=== PATIENT | female | born 1935 | race Two or more races ===

== ENCOUNTER 2017-01-10 23:50 | Emergency (ER) | payer MEDICARE ==
[~2017-01-10] VITALS: Ht 162.6 cm; Wt 77.1 kg
[2017-01-11] MEDS ORDERED: ALBUTEROL FS 2.5 MG/0.5 ML VIAL.NEB ONE (00:57)
[2017-01-11] MEDS ORDERED: ALBUTEROL FS 2.5 MG/0.5 ML VIAL.NEB NEB ONE (01:00)
[2017-01-11 02:27] VITALS: BP 112/68
== END 2017-01-11 02:28 | disposition home or self-care (01) ==
LOC: ER 23:54
DX: J06.9 Acute upper respiratory infection, unspecified (principal); E11.9 Type 2 diabetes mellitus without complications
CPT/HCPCS: 71010; 94640; 99283; A4606; Z7610

== ENCOUNTER 2022-08-25 02:35 | Inpatient (IN) | payer MEDICARE, OTHER ==
[2022-08-25] VITALS (16 sets, daily range): BP systolic 91–142; BP diastolic 55–103
[~2022-08-25] VITALS: Ht 160 cm; Wt 76.2 kg
--- NOTE | 2022-08-25 02:45 | NUR ---
TO ER BED 8. [id number]. FROM SNF NOTED HYPOXIC @ 68% ON 3LPM. ON NON REBREATHER @ 98%. PT IS AAOX0. CRACKLES NOTED ON LUNG SOUNDS. CONNECTED TO MONITOR. PHYLLIS AND ELENA NOTED UPON ARRIVAL. RT AND MD AT BEDSIDE.
[2022-08-25 02:47] LABS: ABG BASE EXCESS 9.9 mmol/L; ABG PCO2 86.6 mmHg (35.0-45.0); ABG PH 7.279 (7.350-7.450); ABG PO2 274.9 mmHg (75.0-100.0); COHb 0.1 % (0.5-1.5); MetHb 0.5 % (0.0-1.5); O2Hb 98.9 % (94.0-97.0); SITE, ABG Left Radial; VENT MODE, BG 15 L NRB
[2022-08-25] MEDS ORDERED: PIPERACILLIN /TAZOBACTAM 3.375 G VIAL IV ONE (02:47)
--- NOTE | 2022-08-25 02:48 | NUR ---
URINE SAMPLE COLLECTED
--- NOTE | 2022-08-25 02:48 | NUR ---
IV LINE ESTABLISHED, [id number]
--- NOTE | 2022-08-25 02:48 | NUR ---
BLOOD AND CULTURES COLLECTED
--- NOTE | 2022-08-25 02:49 | NUR ---
COVID SWAB COLLECTED
[2022-08-25] MEDS ORDERED: VANCOMYCIN 1 GM VIAL ONE (02:51)
--- NOTE | 2022-08-25 02:52 | NUR ---
SHIFTED TO BIPAP WITH SETTINGS OF 20/5, RATE 18, FiO2 50%.
[2022-08-25] MEDS ORDERED: PIPERACILLIN /TAZOBACTAM 3.375 G in IV D5W 50 ML IV ONE (03:00)
[2022-08-25] MEDS ORDERED: VANCOMYCIN 1 GM in IV D5W 250 ML IV ONE (03:00)
--- NOTE | 2022-08-25 03:03 | NUR ---
RT placed on bipap per md post abg results. bipap settings: ST 20/5 RR 18 50% bipap plugged in to red outlet. alarms on and audible. pt tolerating at this time. no sob, no resp distress. ambu bag at bedside.
[2022-08-25 03:04] LABS: BASOPHILS % (AUTO) 0.1 % (0.0-2.0); EOSINOPHILS % (AUTO) 0.6 % (0.0-6.0); HEMATOCRIT 35 % (33-45); HEMOGLOBIN 11.2 g/dL (11.5-14.8); LYMPHOCYTES # (AUTO) 0.4 K/uL (0.8-4.8); LYMPHOCYTES % (AUTO) 5.2 % (20.0-44.0); MEAN CORPUSCULAR HGB CONC 32 g/dl (31.0-36.0); MEAN CORPUSCULAR VOLUME 92 fL (82-100); MONOCYTES # (AUTO) 0.4 K/uL (0.1-1.30); MONOCYTES % (AUTO) 4.9 % (2.0-12.0); NEUTROPHILS # (AUTO) 6.5 K/uL (1.8-8.9); NEUTROPHILS % (AUTO) 89.2 % (43.0-81.0); PLATELET COUNT (AUTO) 252 K/uL (150-450); RED BLOOD CELL COUNT(AUTO) 3.78 MIL/uL (4.0-5.2); WHITE BLOOD COUNT (AUTO) 7.3 K/uL (4.3-11.0)
[2022-08-25 03:16] LABS: CALCIUM, SERUM 9.4 mg/dL (8.5-10.1); CHLORIDE 92 mmol/L (98-107); CREATININE 0.5 mg/dL (0.6-1.3); GLUCOSE 132 mg/dL (74-106); SODIUM SERUM 129 mmol/L (136-145); UREA NITROGEN, BLOOD 20 mg/dL (7-18)
[2022-08-25 03:22] LABS: ALANINE AMINOTRANSFERASE 19 U/L (12-78); ALBUMIN 2.8 g/dL (3.4-5.0); ALKALINE PHOSPHATASE 125 U/L (46-116); ASPARTATE AMINOTRANSFERASE 17 U/L (15-37); BILIRUBIN,DIRECT 0.1 mg/dL (0.0-0.2); BILIRUBIN,TOTAL 0.4 mg/dL (0.2-1.0); TOTAL PROTEIN, SERUM 6.7 g/dL (6.4-8.2)
[2022-08-25 03:23] LABS: CARBON DIOXIDE 41 mmol/L (21-32)
--- NOTE | 2022-08-25 03:43 | NUR ---
XRAY AT BEDSIDE
[2022-08-25 04:08] LABS: BILIRUBIN,URINE NEGATIVE (NEGATIVE); COLOR,URINE YELLOW (YELLOW); PH,URINE 6.5 (5.0-8.0); PROTEIN,URINE NEGATIVE (NEGATIVE); UGLUCOSE NEGATIVE (NEGATIVE)
[2022-08-25 04:09] LABS: LEUKOCYTE ESTERASE ,URINE LARGE (NEGATIVE); NITRITE, URINE NEGATIVE (NEGATIVE); RBC,URINE 0-2 /HPF (0-2); UROBILINOGEN,URINE 0.2 EU/dL (0.2)
[2022-08-25 04:10] LABS: BACTERIA,URINE Few /HPF (None Seen); SQUAMOUS EPITHELIAL CELL,UR Few /HPF (None Seen)
[2022-08-25 04:33] LABS: ABG PCO2 79.4 mmHg (35.0-45.0); ABG PO2 125.6 mmHg (75.0-100.0); COHb 0.3 % (0.5-1.5); MetHb 0.4 % (0.0-1.5); O2Hb 97.4 % (94.0-97.0); SITE, ABG Right Radial
--- NOTE | 2022-08-25 04:40 | NUR ---
ABG DONE. NOTIFIED DR ADAMS WITH THE RESULT. FIO2 TITRATED.
[2022-08-25] MEDS ORDERED: hydrALAZINE HCL IV 20 MG VIAL IV PRN (05:30)
[2022-08-25] MEDS ORDERED: MAG HYDROX/AL HYDROX/SIMETH 30 ML UDC PO PRN (05:30)
[2022-08-25] MEDS ORDERED: ONDANSETRON HCL/PF 4 MG/2 ML VIAL IVP PRN (05:30)
[2022-08-25] MEDS ORDERED: MORPHINE SULFATE INJ 2 MG/ML DISP.SYRIN IV PRN (05:30)
[2022-08-25] MEDS ORDERED: MAGNESIUM HYDROXIDE 30 ML UDC PO PRN (05:30)
[2022-08-25] MEDS ORDERED: ACETAMINOPHEN 325 MG TABLET PO PRN (05:30)
--- NOTE | 2022-08-25 05:30 | NUR ---
SECOND IV LINE ESTABLISHED, [id number]
--- NOTE | 2022-08-25 05:34 | NUR ---
ROOM 258
--- NOTE | 2022-08-25 05:46 | NUR ---
REPORT GIVEN TO ED RN FOR MAYE
--- NOTE | 2022-08-25 07:05 | NUR ---
SASH INSTALLER Bedside report taken from [facility] nurse Saunders. pt just arrived from ER. pt obtunded does not open eyes or follow commands moves rue 2/5 and lue and ble 1/5, perrla 2 sluggish. pt on bipap, tolerating well. taras lung sounds diminished. pt has peg tube, npo at this time. pt has hightower intact and draining clear, yellow urine. bue and ble pulses present. pt nsr on monitor with BBB. pt has multiple wounds, photos taken and placed in pt chart. no drips at this time. safety measures in place will continue to monitor.
--- NOTE | 2022-08-25 07:14 | NUR ---
PT TRANSPORTED TO ICU VIA DONG W/ RT AND RN
[2022-08-25] MEDS: IPRATROPIUM NEB FS 0.5 MG/2.5 ML AMPUL.NEB NEB SCH ×3 (08:03→19:40)
[2022-08-25] MEDS: ALBUTEROL FS 2.5 MG/3 ML VIAL.NEB NEB SCH ×3 (08:03→19:40)
[2022-08-25] MEDS ORDERED: POLY17PO4 GT (08:15)
[2022-08-25] MEDS ORDERED: ASCO500C17 GT (08:15)
[2022-08-25] MEDS ORDERED: ACET325T53 PO (08:15)
[2022-08-25] MEDS ORDERED: ACET325T53 GT (08:15)
[2022-08-25] MEDS ORDERED: PANT40TA2 GT (08:15)
[2022-08-25] MEDS ORDERED: MELA3TAB41 GT (08:15)
[2022-08-25] MEDS ORDERED: LEVO112T5 GT (08:15)
[2022-08-25] MEDS ORDERED: LACT-209 GT (08:15)
[2022-08-25] MEDS ORDERED: MULT-447 GT (08:15)
[2022-08-25] MEDS: CEFEPIME 2 GM in IV D5W 100 ML IV SCH ×3 (09:44→23:37)
[2022-08-25] MEDS: HEPARIN SODIUM, PORCINE 5000 UNITS/1 ML VIAL SQ SCH ×2 (09:49→21:17)
--- NOTE | 2022-08-25 13:00 | NUR ---
pt placed off bipsp onto 3lpm n/c
--- NOTE | 2022-08-25 13:00 | NUR ---
CIGAR HEAD STRINGER Pt off bipap and placed on 3 L n/c by Eben RT. pt tolerating well. vitals stable. willl continue to monitor.
--- NOTE | 2022-08-25 13:13 | NUR ---
NURSE SUBSTANCE ABUSE parking enforcement technician at bedside doing study. pt tolerating well. will continue to monitor.
[2022-08-25] MEDS: BUMETANIDE INJ 0.25 MG/ML VIAL IV SCH ×2 (13:24→16:53)
[2022-08-25 15:10] LABS: ABG BASE EXCESS 8.9 mmol/L; ABG OXYGEN SATURATION 93.2 % (92.0-98.5); ABG PCO2 57.7 mmHg (35.0-45.0); ABG PH 7.406 (7.350-7.450); ABG PO2 65.5 mmHg (75.0-100.0); AaDO2 95.2 mmHg; MetHb 0.2 % (0.0-1.5); O2Hb 92.1 % (94.0-97.0); SITE, ABG Right Radial; VENT MODE, BG NASAL CANNULA
--- NOTE | 2022-08-25 19:05 | NUR ---
ORNAMENTAL PLASTER STICKER Bedside report given to [facility] nurse Saunders. pt asleep, easily arousable. pt on 3 L n/c tolerating well. all lines traced. pt clean and dry. no signs of acute distress at this time. safety measures in place.
--- NOTE | 2022-08-25 19:15 | NUR ---
ICU/INSURANCE ADJUSTOR RECEIVED REPORT FROM DAY NURSE. SEE FLOWSHEET FOR ASSESSMENT. FOR IV SEE THE IV SPREAD SHEET, WHICH IS TKO AND ANTIBIOTICS. PT HAS MANY WOUND WHICH ARE ADDRESSED ON THE FLOWSHEET ALONG WITH THE INTERVENTIONS TO EACH. PT WAS TUNED AND REPOSITIONED FOR COMFORT AND CARE. WILL CONTINUE TO MONITOR THIS PT.
--- NOTE | 2022-08-25 20:30 | NUR ---
ICU/CRIMPER ASSEMBLER SATURATION FELL TO 70'S WHILE ON 3 LITERS N/C, CALLED RT TO PLACE PT BACK ON BIPAP, WHICH HE DID DO. PT IS NOW OMN BIPAP-20/5, RATE 18, FIO2-35%. WILL CONTINUE TO MONITOR THIS PT AND HER SATURATION.
--- NOTE | 2022-08-25 21:10 | NUR ---
ICU/CIO LAB CALLED ABOUT MRSA TO NARES THAT WAS COLLECTED BUT NO ORDERS, PLACED THE ORDERS FOR THIS.
--- NOTE | 2022-08-25 21:40 | NUR ---
RT NOTE PT PLACED ON BIPAP AT THIS TIME. LOW SPO2 NOTED ON 3L NASAL CANNULA. MASK SECURED WITH MEPILEX. WILL CONTINUE TO MONITOR. BIPAP PLUGGED TO RED OUTLET.
--- NOTE | 2022-08-25 22:30 | NUR ---
ICU/MOBILE SECURITY SPECIALIST PT IS VERY RESTLESS, PULLING AT LEADS, AND TRYING TO TAKE OFF THE BIPAP, ALSO AT THIS TIME PT MANAGED TO REMOVE PERIPHERAL LINES. OBTAINED AN ORDER FOR RESTRAINTS. PT WAS TUNED AND REPOSITIONED FOR COMFORT AND CARE.
--- NOTE | 2022-08-25 23:50 | NUR ---
ICU/FIRE EQUIPMENT OPERATOR CHARGE NURSE PLACED A NEW IV TO THE LEFT EXTERNAL JUG. #18, IV'S WERE CHANGED OVER.
[2022-08-26] VITALS (21 sets, daily range): BP systolic 88–157; BP diastolic 35–91
[2022-08-26] MEDS: IPRATROPIUM NEB FS 0.5 MG/2.5 ML AMPUL.NEB NEB SCH ×4 (01:46→19:55)
[2022-08-26] MEDS: ALBUTEROL FS 2.5 MG/3 ML VIAL.NEB NEB SCH ×4 (01:46→19:54)
--- NOTE | 2022-08-26 02:48 | NUR ---
ICU/CHRISTMAS TREE CONTRACTOR PT HAS A G/TUBE WAS GETTING JEVITY 1.2 @45ML/HR. PLACED ORDER FOR THIS THEN CANCELLED THE FIGUEROA GILL.
[2022-08-26 05:03] LABS: BASOPHILS % (AUTO) 0.4 % (0.0-2.0); EOSINOPHILS % (AUTO) 0.6 % (0.0-6.0); HEMATOCRIT 33 % (33-45); HEMOGLOBIN 10.7 g/dL (11.5-14.8); LYMPHOCYTES # (AUTO) 0.3 K/uL (0.8-4.8); LYMPHOCYTES % (AUTO) 4.3 % (20.0-44.0); MEAN CORPUSCULAR HGB CONC 32 g/dl (31.0-36.0); MEAN CORPUSCULAR VOLUME 91 fL (82-100); MONOCYTES # (AUTO) 0.5 K/uL (0.1-1.30); MONOCYTES % (AUTO) 7.2 % (2.0-12.0); NEUTROPHILS # (AUTO) 6.5 K/uL (1.8-8.9); NEUTROPHILS % (AUTO) 87.5 % (43.0-81.0); PLATELET COUNT (AUTO) 228 K/uL (150-450); RED BLOOD CELL COUNT(AUTO) 3.61 MIL/uL (4.0-5.2); WHITE BLOOD COUNT (AUTO) 7.4 K/uL (4.3-11.0)
--- NOTE | 2022-08-26 05:10 | NUR ---
ICU/CHARTER COACH DRIVER RT TOOK OFF BIPAP, PLACED PT ON 3 LITERS N/C. WILL MONITOR THIS PT'S SATURATION.
[2022-08-26 05:52] LABS: ALBUMIN 2.9 g/dL (3.4-5.0); BILIRUBIN,TOTAL 0.7 mg/dL (0.2-1.0); CALCIUM, SERUM 9.5 mg/dL (8.5-10.1); CREATININE 0.9 mg/dL (0.6-1.3); MAGNESIUM 1.9 mg/dL (1.8-2.4); PHOSPHORUS 3.3 mg/dL (2.5-4.9); POTASSIUM 4.5 mmol/L (3.5-5.1); TOTAL PROTEIN, SERUM 6.8 g/dL (6.4-8.2)
[2022-08-26] MEDS ORDERED: DEXTROSE 50%-WATER 50 ML DISP.SYRIN IV PRN (06:00)
[2022-08-26] MEDS: BLOOD SUGAR DIAGNOSTIC 1 EACH STRIP IN SCH ×3 (06:12→17:55)
--- NOTE | 2022-08-26 07:15 | NUR ---
SECURITY SME Bedside report taken from [facility] nurse Saunders. pt awake, alert and oriented x2, follow commands moves bue 2/5 and ble 1/5, perrla 2 sluggish. pt on 4L N/C, tolerating well. taras lung sounds diminished. pt has peg tube, npo at this time, awaiting tube feeding to start. pt has hightower intact and draining clear, yellow urine. bue and ble pulses present. pt nsr on monitor with BBB. pt has multiple wounds, see flowsheet. no drips at this time. safety measures in place. vitals stable. no signs of acute distress at this time. will continue to monitor.
[2022-08-26] MEDS: CEFEPIME 2 GM in IV D5W 100 ML IV SCH ×2 (08:06→17:41)
[2022-08-26] MEDS: HEPARIN SODIUM, PORCINE 5000 UNITS/1 ML VIAL SQ SCH ×2 (08:07→21:24)
[2022-08-26 08:19] LABS: ABG BASE EXCESS 12.4 mmol/L; ABG OXYGEN SATURATION 96.7 % (92.0-98.5); ABG PCO2 50.2 mmHg (35.0-45.0); ABG PO2 86.9 mmHg (75.0-100.0); AaDO2 89.8 mmHg; COHb 0.4 % (0.5-1.5); MetHb 0.2 % (0.0-1.5); O2Hb 96.1 % (94.0-97.0); SITE, ABG Right Radial
--- NOTE | 2022-08-26 08:32 | NUR ---
POND SCALER PICC RN at bedside placing midline. pt tolerated well. ok to use. will continue to monitor.
--- NOTE | 2022-08-26 15:00 | NUR ---
HYDRAULIC CONTROLS TECHNICIAN Pt bathed and cleaned. linen change done. skin check done, no new wounds noted. pt tolerated well. vitals stable. will continue to monitor.
--- NOTE | 2022-08-26 18:59 | NUR ---
COMPLAINT SPECIALIST Bedside report given to [facility] nurse Susannah. pt asleep, easily arousable. pt on 4 L n/c tolerating well. all lines traced. all drips verified. pt clean and dry. safety measures in place. vitals stable. no signs of acute distress at this time. transfer to tele room 109 pending after 1930 and endorsed to [facility] nurse.
--- NOTE | 2022-08-26 19:33 | NUR ---
SPEEDER OPERATOR CALLED FOR REPORT NURSE UNAVAILABLE AT THIS TIME.
--- NOTE | 2022-08-26 19:43 | NUR ---
CUPOLA CHARGER INSULATION REPORT GIVEN PT CURRENTLY RECEIVING BREATHING TREATMENT
--- NOTE | 2022-08-26 22:38 | NUR ---
PRINCIPAL QUALITY ENGINEER OPENING NOTE PT TRANSFERRED FROM ICU AND IS AWAKE AND ALERT, BUT NON-VERBAL; CALM, COOPERATIVE. PT ON 3L NC WITH CURRENT O2SAT OF 97%; NO S/S OF RESP DISTRESS, NO SOB OR COUGH, NON-LABORED AND EQUAL BREATHING. PT ATTACHED TO EXTERNAL MONITOR, ST WITH HR OF 102. GTD C/D/I WITH JEVITY RUNNING AT 45 ML/HR; NO RESIDUAL NOTED. PARKER INTACT AND PATENT WITH NO SIGNS OF LEAKING, DRAINING CLEAR AND YELLOW URINE. PT NOTED TO HAVE BILATERAL SOFT WRIST RESTRAINTS; NO SIGNS OF IMPAIRED SKIN OR CIRCULATION; WILL PROVIDE PT WITH RELEASE OF RESTRAINTS AND HYGIENE. BED IN LOWEST POSITION, CALL LIGHT WITHIN REACH, SIDE RAILS UP X3. WILL CONTINUE TO MONITOR THROUGHOUT THE NIGHT.
[2022-08-27] VITALS: BP 100/80
[2022-08-27] MEDS: BLOOD SUGAR DIAGNOSTIC 1 EACH STRIP IN SCH ×4 (00:09→18:24)
[2022-08-27] MEDS: CEFEPIME 2 GM in IV D5W 100 ML IV SCH ×3 (00:11→15:06)
[2022-08-27] MEDS: IPRATROPIUM NEB FS 0.5 MG/2.5 ML AMPUL.NEB NEB SCH ×4 (01:38→20:36)
[2022-08-27] MEDS: ALBUTEROL FS 2.5 MG/3 ML VIAL.NEB NEB SCH ×4 (01:40→20:36)
[2022-08-27 04:00] VITALS: BP 101/60
--- NOTE | 2022-08-27 06:46 | NUR ---
LANG PATH THERAPIST CLOSING NOTE PT REMAINS IN BED ASLEEP BUT EASILY AROUSABLE; PT NOTED TO SAY "OK" WHEN ASKED HOW SHE'S DOING AND WHEN NOTIFYING HER WHEN CHECKING HER BLOOD SUGAR; UNABLE TO STATE HER NAME, , WHERE SHE'S AT; CALM, COOPERATIVE. CONTINUES TO BE ON 3L NC WITH O2SAT RANGING FROM 95%- 97%; NO S/S OF RESP DISTRESS, NO SOB OR COUGH, NON-LABORED AND EQUAL BREATHING. ATTACHED TO EXTERNAL MONITOR, SR-ST WITH HR RANGING FROM 85- 102. GTD C/D/I WITH JEVITY RUNNING AT 45 ML/HR; NO RESIDUAL NOTED. PARKER INTACT AND PATENT WITH NO SIGNS OF LEAKING, DRAINING CLEAR AND YELLOW URINE. BILATERAL SOFT WRIST RESTRAINTS REMAIN IN PLACE WITH NO SIGNS OF IMPAIRED SKIN OR CIRCULATION; PROVIDED PT WITH RELEASE OF RESTRAINTS AND HYGIENE. ALL DUE MEDS ADMINISTERED DURING THE NIGHT. BED IN LOWEST POSITION, CALL LIGHT WITHIN REACH, SIDE RAILS UP X3. WILL ENDORSE TO DAYSHIFT NURSE TO CONTINUE CARE. Addendum: 08/27/22 at 1830 by CHEIKH ARNDT RN G TUBE RUNNING 75 ML/HR OF JEVETY
[2022-08-27 08:00] VITALS: BP 116/77
[2022-08-27] MEDS: ALBUTEROL FS 2.5 MG/0.5 ML VIAL.NEB NEB PRN ×2 (08:40→14:18)
[2022-08-27] MEDS: HEPARIN SODIUM, PORCINE 5000 UNITS/1 ML VIAL SQ SCH ×2 (09:43→23:54)
[2022-08-27] MEDS: INSULIN REGULAR, HUMAN 100 UNIT/ML 3 ML VIAL SQ PRN (11:48)
[2022-08-27 12:00] VITALS: BP 124/69
[2022-08-27 16:15] VITALS: BP 92/77
[2022-08-27 20:00] VITALS: BP 117/76
[2022-08-28] VITALS: BP 107/67
[2022-08-28] MEDS: CEFEPIME 2 GM in IV D5W 100 ML IV SCH ×3 (00:11→15:23)
[2022-08-28] MEDS: BLOOD SUGAR DIAGNOSTIC 1 EACH STRIP IN SCH ×4 (00:11→17:48)
[2022-08-28] MEDS: IPRATROPIUM NEB FS 0.5 MG/2.5 ML AMPUL.NEB NEB SCH ×4 (01:44→20:23)
[2022-08-28] MEDS: ALBUTEROL FS 2.5 MG/3 ML VIAL.NEB NEB SCH ×4 (01:44→20:23)
[2022-08-28 04:41] VITALS: BP 113/83
--- NOTE | 2022-08-28 07:34 | NUR ---
SEGMENTAL WALL INSTALLER OPENING NOTE PATIENT IN BED ALERT. PT ON 3L NC WITH NO S/SX OF RESP DISTRESS, NO SOB OR COUGH, NON-LABORED. NO C/O OF PAIN. PATIENT ON TELE MONITORING WITH SR READING AND HR OF 83. GT INTACT, WITH JEVITY RUNNING AT 45 ML/HR. PARKER INTACT, WITH NO SIGNS OF LEAKING, DRAINING VIA GRAVITY. PT NOTED TO HAVE BILATERAL SOFT WRIST RESTRAINTS X2 TO BE RENEWED 2221. BED IN LOWEST POSITION, CALL LIGHT WITHIN REACH, SIDE RAILS UP X2. WILL CONTINUE TO MONITOR
[2022-08-28 08:00] VITALS: BP 110/64
[2022-08-28] MEDS: HEPARIN SODIUM, PORCINE 5000 UNITS/1 ML VIAL SQ SCH ×2 (08:38→21:21)
--- NOTE | 2022-08-28 10:00 | NUR ---
RN NOTE PATIENT NOTED TO BE CALM, RELEASED BILATERAL RESTRAINTS.
--- NOTE | 2022-08-28 11:00 | NUR ---
RN NOTE PATIENT REMAINED CALM RESTRAINTS D/C
[2022-08-28 12:00] VITALS: BP 118/70
[2022-08-28] MEDS: INSULIN REGULAR, HUMAN 100 UNIT/ML 3 ML VIAL SQ PRN (12:09)
[2022-08-28 16:00] VITALS: BP 91/58
--- NOTE | 2022-08-28 18:25 | NUR ---
HATCH SUPERVISOR CLOSING NOTE PT REMAINS IN BED ASLEEP BUT EASILY AROUSABLE. ON 3L OXYGEN VIA NC WITH Z1CGK=97% NO S/S OF RESP DISTRESS, NO SOB OR COUGH, NON-LABORED AND EQUAL BREATHING. ATTACHED TO EXTERNAL MONITOR, SR-ST WITH HR RANGING FROM 92/109. PADMINI MIDLINE PATENT AND INTACT TKO. LEFT ARM PERIPHERAL LINE PATENT AND INTACT ON SALINE LOCK. GTD C/D/I WITH JEVITY RUNNING AT 70 ML/HR; TOLERATING WELL. NO RESIDUAL NOTED. PARKER INTACT AND PATENT WITH NO SIGNS OF LEAKING, DRAINING 525 CC OF CLEAR AND YELLOW URINE. BED IN LOWEST POSITION, CALL LIGHT WITHIN REACH, SIDE RAILS UP X3. WILL ENDORSE TO RESPIRATORY THERAPIST NURSE.
--- NOTE | 2022-08-28 19:20 | NUR ---
RN OPEN NOTE: ASLEEP EASILY AROUSED . ON 3L OXYGEN VIA NC WITH N4TLV=00% NO S/S OF RESP DISTRESS, NO SOB OR COUGH, NON-LABORED AND EQUAL BREATHING. ATTACHED TO EXTERNAL MONITOR READING OF SINUS RHYTHM WITH PVC'S 91. REPOSITIONED WITH PILLOWS. PADMINI MIDLINE PATENT AND INTACT TKO. LEFT ARM PERIPHERAL LINE PATENT AND INTACT ON SALINE LOCK. GT FEEDING ON WITH JEVITY RUNNING AT 70 ML/HR; TOLERATING WELL. NO RESIDUAL NOTED. PARKER INTACT AND PATENT DRAINING YELLOW URINE. HOB ELEVATED IN SEMI-ROLDAN'S POSITION, BED IS LOCKED, BED EXIT ALARM, BED IN LOWEST POSITION, CALL LIGHT WITHIN REACH, SIDE RAILS UP X3. DECLINES PAIN OR DISCOMFORT.
[2022-08-28 20:00] VITALS: BP 103/47
[2022-08-29] VITALS: BP 112/70
[2022-08-29] MEDS: CEFEPIME 2 GM in IV D5W 100 ML IV SCH ×4 (00:01→23:47)
[2022-08-29] MEDS: BLOOD SUGAR DIAGNOSTIC 1 EACH STRIP IN SCH ×5 (00:21→23:49)
[2022-08-29] MEDS: INSULIN REGULAR, HUMAN 100 UNIT/ML 3 ML VIAL SQ PRN ×2 (00:23→23:50)
[2022-08-29] MEDS: IPRATROPIUM NEB FS 0.5 MG/2.5 ML AMPUL.NEB NEB SCH ×4 (01:56→20:03)
[2022-08-29] MEDS: ALBUTEROL FS 2.5 MG/3 ML VIAL.NEB NEB SCH ×4 (01:57→20:03)
[2022-08-29 04:00] VITALS: BP 100/52
[2022-08-29 05:51] LABS: ABG OXYGEN SATURATION 96.5 % (92.0-98.5); ABG PH 7.483 (7.350-7.450); ABG PO2 86.3 mmHg (75.0-100.0); AaDO2 55.5 mmHg; COHb 0.1 % (0.5-1.5); MetHb 0.2 % (0.0-1.5); O2Hb 96.2 % (94.0-97.0); SITE, ABG Right Radial; VENT MODE, BG 2L NASAL CANNULA
[2022-08-29 06:25] LABS: BASOPHILS % (AUTO) 0.4 % (0.0-2.0); EOSINOPHILS % (AUTO) 3.4 % (0.0-6.0); HEMATOCRIT 32 % (33-45); HEMOGLOBIN 10.1 g/dL (11.5-14.8); LYMPHOCYTES # (AUTO) 0.4 K/uL (0.8-4.8); LYMPHOCYTES % (AUTO) 6.9 % (20.0-44.0); MEAN CORPUSCULAR HGB CONC 32 g/dl (31.0-36.0); MEAN CORPUSCULAR VOLUME 93 fL (82-100); MONOCYTES # (AUTO) 0.4 K/uL (0.1-1.30); MONOCYTES % (AUTO) 7.4 % (2.0-12.0); NEUTROPHILS # (AUTO) 4.1 K/uL (1.8-8.9); NEUTROPHILS % (AUTO) 81.9 % (43.0-81.0); PLATELET COUNT (AUTO) 180 K/uL (150-450); RED BLOOD CELL COUNT(AUTO) 3.42 MIL/uL (4.0-5.2); WHITE BLOOD COUNT (AUTO) 5.1 K/uL (4.3-11.0)
--- NOTE | 2022-08-29 06:44 | NUR ---
RN CLOSING NOTE: ASLEEP EASILY AROUSED . ABGS DONE BY RT WITH O2 TITRATION OF 2LM NC. OXYGEN VIA NC WITH P4RZT=44% NO S/S OF RESP DISTRESS, NO SOB OR COUGH, NON-LABORED AND EQUAL BREATHING. ATTACHED TO EXTERNAL MONITOR READING OF SINUS RHYTHM 96 BBB. REPOSITIONED WITH PILLOWS. PADMINI MIDLINE PATENT AND INTACT TKO. LEFT ARM PERIPHERAL LINE PATENT AND INTACT ON SALINE LOCK. CONTINUES O ABX IV WITH NO A/R.ASPIRATION PRECAUTIONS MAINTAINED. TOTAL CARE PROVIDED WITH 2 PERSON ASSIST. GT FEEDING ON WITH JEVITY RUNNING AT 70 ML/HR; TOLERATING WELL. NO RESIDUAL NOTED. PARKER INTACT AND PATENT DRAINING YELLOW URINE. OUTPUT 400ML. HOB ELEVATED IN SEMI-ROLDAN'S POSITION, BED IS LOCKED, BED EXIT ALARM, BED IN LOWEST POSITION, CALL LIGHT WITHIN REACH, SIDE RAILS UP X3. DECLINES PAIN OR DISCOMFORT. Addendum: 08/29/22 at 0657 by CHRISSY BARRETO RN BLOOD GLUCOSE MONITORED COVERED ORDERED WITH NO S/SO OF HYPO OR HYPERGLYCEMIA.
[2022-08-29 06:53] LABS: CALCIUM, SERUM 9.6 mg/dL (8.5-10.1); CARBON DIOXIDE 35 mmol/L (21-32); CHLORIDE 96 mmol/L (98-107); CREATININE 0.7 mg/dL (0.6-1.3); GLUCOSE 120 mg/dL (74-106); SODIUM SERUM 133 mmol/L (136-145); UREA NITROGEN, BLOOD 28 mg/dL (7-18)
--- NOTE | 2022-08-29 07:40 | NUR ---
RN NOTE RECEIVED PATIENT IN BED RESTING,CONFUSED,ON 2L OXYGEN VIA NASAL CANNULA O2;93% IV SITE IS ON LEFT UPPER ARM MIDLINE,AND LEFT AC INTACT PATENT,ON G-TUBE FEEDING,JEVITY 1.2 70CC/HR CHECKED PLACEMENT IN PLACE NO RESIDUAL NOTED,PARKER CATH IN PLACE,SAFETY MEASURE IMPLEMENT BED IN LOW POSITION AND LOCKED,HEAD OF THE BED ELEVATED CONTINUE TO MONITOR.
[2022-08-29 08:00] VITALS: BP 113/71
[2022-08-29] MEDS: HEPARIN SODIUM, PORCINE 5000 UNITS/1 ML VIAL SQ SCH ×2 (08:03→21:29)
[2022-08-29 12:00] VITALS: BP 136/69
[2022-08-29] MEDS ORDERED: JEVITY 1.2 CAL 1,000 ML BOTTLE GT SCH (12:00)
[2022-08-29] MEDS ORDERED: POLYETHYLENE GLYCOL 3350 17 GM POWD.PACK GT PRN (12:00)
[2022-08-29] MEDS ORDERED: Medication Not On Formulary EA (Melatonin 3 MG) GT PRN (12:00)
[2022-08-29] MEDS ORDERED: ACETAMINOPHEN 325 MG TABLET PO PRN (12:00)
[2022-08-29 16:00] VITALS: BP 119/90
--- NOTE | 2022-08-29 18:55 | NUR ---
RN NOTE PATIENT REMAINS ON CONFUSED ON 2L OXYGEN O2:95% NO SOB NOT ACUTE DISTRESS NOTED,ALL DUE MEDS GIVEN MD ORDERED,TURNED AND REPOSITIONED EVERY 2 HOURS,KEPT CLEAN AND DRY ALL THE TIME,HEAD OF THE BED ELEVATED,ENDORSE NEXT COMING SHIFT FOR CONTINUATION OF CARE.
--- NOTE | 2022-08-29 19:49 | NUR ---
noc rn opening received patient in bed, eyes-open, non-verbal. no s/s of apparent distress on 2lpm of o2 via nc. not exhibiting pain via flacc. tele monitor reading s with 90 bpm.. g-tube feeding running Jevity 1.2 @55mls/hr. mac midline iv access on saline lock. hightower draining clear, yellow urine. safety in place. will continue with patient's plan of care.
[2022-08-29 20:00] VITALS: BP 104/57
[2022-08-30] VITALS: BP 108/70
[2022-08-30] MEDS: IPRATROPIUM NEB FS 0.5 MG/2.5 ML AMPUL.NEB NEB SCH ×3 (01:47→14:04)
[2022-08-30] MEDS: ALBUTEROL FS 2.5 MG/3 ML VIAL.NEB NEB SCH ×3 (01:48→14:04)
[2022-08-30 04:00] VITALS: BP 125/68
[2022-08-30 05:07] LABS: ABG BASE EXCESS 5.7 mmol/L; ABG OXYGEN SATURATION 98.8 % (92.0-98.5); ABG PCO2 53.1 mmHg (35.0-45.0); ABG PH 7.394 (7.350-7.450); ABG PO2 143.1 mmHg (75.0-100.0); AaDO2 22.9 mmHg; COHb 0.2 % (0.5-1.5); MetHb 0.3 % (0.0-1.5); O2Hb 98.3 % (94.0-97.0); SITE, ABG Left Radial; VENT MODE, BG Nasal Cannula
--- NOTE | 2022-08-30 05:27 | NUR ---
noc rn note- ABG fi02 32.0 %. RT weaned off o2 to 2 lpm via nc.
[2022-08-30] MEDS: INSULIN REGULAR, HUMAN 100 UNIT/ML 3 ML VIAL SQ PRN (06:00)
[2022-08-30] MEDS: BLOOD SUGAR DIAGNOSTIC 1 EACH STRIP IN SCH ×2 (06:00→12:49)
[2022-08-30 06:06] LABS: BASOPHILS % (AUTO) 0.5 % (0.0-2.0); EOSINOPHILS % (AUTO) 7.5 % (0.0-6.0); HEMATOCRIT 31 % (33-45); LYMPHOCYTES # (AUTO) 0.5 K/uL (0.8-4.8); LYMPHOCYTES % (AUTO) 10.5 % (20.0-44.0); MEAN CORPUSCULAR HGB CONC 32 g/dl (31.0-36.0); MEAN CORPUSCULAR VOLUME 93 fL (82-100); MONOCYTES # (AUTO) 0.4 K/uL (0.1-1.30); MONOCYTES % (AUTO) 8.3 % (2.0-12.0); NEUTROPHILS # (AUTO) 3.3 K/uL (1.8-8.9); NEUTROPHILS % (AUTO) 73.2 % (43.0-81.0); PLATELET COUNT (AUTO) 172 K/uL (150-450); RED BLOOD CELL COUNT(AUTO) 3.37 MIL/uL (4.0-5.2); WHITE BLOOD COUNT (AUTO) 4.5 K/uL (4.3-11.0)
--- NOTE | 2022-08-30 07:06 | NUR ---
noc rn closing patient in bed with eyes closed, easy to arouse. no s/s of apparent distress on 2lpm of o2 via nc. not exhibiting pain via flacc. tele monitor reading sr 100 bpm with pvc's. hightower cath in place. Jevity re-started running @55mls/hr. all needs attended. all scheduled meds administered. safety kept throughout shift. will endorse to morning shift rn for continuity of patient care.
[2022-08-30 07:16] LABS: CALCIUM, SERUM 9.2 mg/dL (8.5-10.1); CREATININE 0.8 mg/dL (0.6-1.3); POTASSIUM 4.3 mmol/L (3.5-5.1)
--- NOTE | 2022-08-30 07:20 | NUR ---
director telemetry opening note patient is in bed with eyes closed, easily arousable. no signs of pain or discomfort.patient is on 3 l of nsasal cannula tolerating well at 98% tele monitor reading sr with pvc. hightower cath in place. yellow color draining to gravirt.patient is on Jevity 55mls/hr.no residual volume.gtube intact and patent.all safety measures in place. call light with reach. bed locked at lowest position.side rails up x2.bedside table next to reach.
[2022-08-30] MEDS ORDERED: PANTOPRAZOLE 40 MG/PACK PACK GT SCH (07:30)
[2022-08-30] MEDS ORDERED: PANTOPRAZOLE 40 MG TABLET.DR PO SCH (07:30)
[2022-08-30] MEDS ORDERED: LEVOTHYROXINE SODIUM 125 MCG TABLET GT SCH (07:30)
[2022-08-30 08:00] VITALS: BP 162/75
--- NOTE | 2022-08-30 08:00 | NUR ---
called pharmacy to change form of protonix to pack.patient has gtube.
[2022-08-30] MEDS: CEFEPIME 2 GM in IV D5W 100 ML IV SCH (08:10)
[2022-08-30] MEDS: HEPARIN SODIUM, PORCINE 5000 UNITS/1 ML VIAL SQ SCH (08:18)
[2022-08-30] MEDS ORDERED: ASCORBIC ACID 500 MG TABLET GT SCH (09:00)
[2022-08-30] MEDS ORDERED: MULTIVITAMINS,THERAGRAN 1 UDTAB TABLET PO SCH (09:00)
[2022-08-30] MEDS ORDERED: ACETAMINOPHEN 325 MG TABLET PO SCH (09:00)
[2022-08-30] MEDS ORDERED: Medication Not On Formulary EA (Multivitamin With Minerals (One Daily Complete) 1 EACH) GT SCH (09:00)
[2022-08-30] MEDS ORDERED: ASCORBIC ACID 500 MG GT SCH (09:00)
--- NOTE | 2022-08-30 09:00 | NUR ---
notified if okay to give heparin.platelet trending and platelet currently 172.workplace rehabilitation officer said ok to give
[2022-08-30 12:00] VITALS: BP 136/83
[2022-08-30] MEDS ORDERED: ALBUT2 NEB (13:12)
[2022-08-30] MEDS ORDERED: CEFE2PIG2 IV (13:12)
[2022-08-30] MEDS ORDERED: IPRA0.2S9 NEB (13:12)
[2022-08-30] MEDS ORDERED: ASCO500T21 GT (13:12)
[2022-08-30] MEDS ORDERED: ALBU2.5V13 NEB (13:12)
[2022-08-30] MEDS ORDERED: JEVITY 1.2 CAL 1,000 ML BOTTLE GT SCH (13:46)
--- NOTE | 2022-08-30 14:45 | NUR ---
[facility]
--- NOTE | 2022-08-30 15:09 | NUR ---
relay telegrapher note patient is contracted. naval inspector aware. and its normal for patient condition
--- NOTE | 2022-08-30 15:09 | NUR ---
telesales supervisor note patient discharged. patient stable condition. kept midline due to patient receiving antibiotics for 2 more days. spoke with SENIOR SECURITY ENGINEER faby gar, patient is contracted and has something protuding in stomach and probably a hernia. gift consultant aware and said ok to discharge
[2022-08-30] MEDS ORDERED: CEFEPIME 2 GM in IV D5W 100 ML IV SCH (21:00)
== END 2022-08-30 15:00 | DRG 193 ==
LOC: ER 02:43 → ICU 06:47 → TELE1 08-26 19:53
PROVIDERS: ADMIT Nurse Practitioner Acute Care; ATTEND Nurse Practitioner Acute Care
PROC: 5A09457 Assistance with Respiratory Ventilation, 24-96 Consecutive Hours, Continuous Positive Airway Pressure (ICD-10-PCS; principal; 2022-08-25)
PROC: 05HA33Z Insertion of Infusion Device into Left Brachial Vein, Percutaneous Approach (ICD-10-PCS; 2022-08-26)
DX: J15.9 Unspecified bacterial pneumonia (principal); G93.41 Metabolic encephalopathy; J96.21 Acute and chronic respiratory failure with hypoxia; I50.33 Acute on chronic diastolic (congestive) heart failure; J96.22 Acute and chronic respiratory failure with hypercapnia; N39.0 Urinary tract infection, site not specified; E87.1 Hypo-osmolality and hyponatremia; E87.3 Alkalosis; Z20.822 Contact with and (suspected) exposure to COVID-19; E11.9 Type 2 diabetes mellitus without complications; F03.90 Unspecified dementia, unspecified severity, without behavioral disturbance, psychotic disturbance, mood disturbance, and anxiety; I48.91 Unspecified atrial fibrillation; Z79.899 Other long term (current) drug therapy; Z86.74 Personal history of sudden cardiac arrest; B96.89 Other specified bacterial agents as the cause of diseases classified elsewhere
CPT/HCPCS: 36415; 36600; 71045-TC; 80048-TC; 80053-TC; 80076-TC; 81001; 82803-TC; 82962-TC; 83605-TC; 83735-TC; 84100-TC; 84484-TC; 85025-TC; 85730-TC; 87040-TC; 87081-TC; 87086-TC; 93307-TC; 94799-TC; C9803; G0378; J0692; J1644; J1815; J2543; J3370; J3490; J7030; J7050; J7060

== ENCOUNTER 2022-09-07 00:57 | Emergency (ER) | payer MEDICARE, OTHER ==
[~2022-09-07] VITALS: Ht 160 cm; Wt 82.6 kg
[~2022-09-07 00:57] MED LIST: ACET325T53 GT; ACET325T53 PO; ALBU2.5V13 NEB; ALBUT2 NEB; ASCO500C17 GT; ASCO500T21 GT; CEFE2PIG2 IV; IPRA0.2S9 NEB; LACT-209 GT; LEVO112T5 GT; MELA3TAB41 GT; MULT-447 GT; PANT40TA2 GT; POLY17PO4 GT
--- NOTE | 2022-09-07 01:14 | NUR ---
[facility] UNIT [address] FROM [facility] C/O DISLODGED GT. F/C IN GTUBE SITE. PER GERRY DONALD AT [facility] GTUBE SIZE 20FR. PT A/OX1. RESP EVEN AND NON LABORED ON R/A. INDWELLING F/C INTACT AND DRAINING URINE WELL. SAFETY MEASURES IN PLACE.
--- NOTE | 2022-09-07 01:21 | NUR ---
DR. BRODIE WILL AT PT'S BEDSIDE
--- NOTE | 2022-09-07 01:32 | NUR ---
DR. BRODIE NICE INSERTED GTUBE 16FR. CONFIRMED PLACEMENT VIA AUSCULTATION & ASPIRATION. AWAITING XRAY.
--- NOTE | 2022-09-07 01:39 | NUR ---
FOREX TRADER AT PT'S BEDSIDE
[2022-09-07] MEDS ORDERED: DIATR MEGLU/DIATRIZOATE SODIUM 30 ML BOTTLE (GASTROGRAPHIN) ONE (01:46)
--- NOTE | 2022-09-07 03:14 | NUR ---
PT TRANSPORT ARRANGED BLS WITH [facility] ETA 0413
--- NOTE | 2022-09-07 03:20 | NUR ---
REPORT GIVEN TO [place] AT [facility]
--- NOTE | 2022-09-07 03:48 | NUR ---
PT PICKED UP BY [facility] FOR TRANSPORT TO [facility]
[2022-09-07 03:54] VITALS: BP 121/76
[2022-09-07] MEDS ORDERED: POLY17PO4 PO (18:01)
== END 2022-09-07 03:48 ==
LOC: ER 01:02
DX: Z43.1 Encounter for attention to gastrostomy (principal); E11.22 Type 2 diabetes mellitus with diabetic chronic kidney disease; N18.9 Chronic kidney disease, unspecified; I48.91 Unspecified atrial fibrillation; K21.9 Gastro-esophageal reflux disease without esophagitis; E03.9 Hypothyroidism, unspecified; Z79.899 Other long term (current) drug therapy
CPT/HCPCS: 99284; 43762; 74018 ×2; Q9963

== ENCOUNTER 2022-09-07 16:31 | Emergency (ER) | payer MEDICARE, OTHER ==
[~2022-09-07] VITALS: Ht 160 cm; Wt 82.6 kg
--- NOTE | 2022-09-07 16:31 | NUR ---
RAZA FROM [facility] FOR G TUBE REPLACEMENT, GOT DISLOGED TODAY. PLACED ON BED, AWAKE ALERT RESPONDING TO VERBAL STIMULI, BREATHING EVEN AND UNLABORED SATURATING AT 98% WITH 2LIT O2.
--- NOTE | 2022-09-07 16:45 | NUR ---
G-TUBE REPLACEMENT DONE BY DR CRAFT AND ABDOMINAL X-RAY WITH GASTROGRAPHINE TO VERIFY PLACEMENT AND WAS CONFIRMED.
[2022-09-07] MEDS ORDERED: DIATR MEGLU/DIATRIZOATE SODIUM 30 ML BOTTLE (GASTROGRAPHIN) PO ONE (17:00)
[2022-09-07] MEDS ORDERED: DIATR MEGLU/DIATRIZOATE SODIUM 30 ML BOTTLE (GASTROGRAPHIN) ONE (17:00)
[2022-09-07] MEDS ORDERED: POLY17PO4 PO (18:01)
--- NOTE | 2022-09-07 18:11 | NUR ---
[facility] CALLED FOR TRANSPORT, ETA 90 MIN PER PAM
[2022-09-07 19:30] VITALS: BP 125/70
--- NOTE | 2022-09-07 20:00 | NUR ---
REPORT GIVEN TO EMT AT BEDSIDE
== END 2022-09-07 20:50 ==
LOC: ER 16:33
DX: Z43.1 Encounter for attention to gastrostomy (principal); K59.00 Constipation, unspecified; E11.22 Type 2 diabetes mellitus with diabetic chronic kidney disease; N18.9 Chronic kidney disease, unspecified; I48.91 Unspecified atrial fibrillation; I46.9 Cardiac arrest, cause unspecified; K21.9 Gastro-esophageal reflux disease without esophagitis; Z79.899 Other long term (current) drug therapy
CPT/HCPCS: 99284; 43762; 74018; Q9963 ×2

== ENCOUNTER 2022-09-30 12:33 | Inpatient (IN) | payer MEDICARE, OTHER ==
[~2022-09-30] VITALS: Ht 157.5 cm; Wt 78.0 kg
--- NOTE | 2022-09-30 11:00 | NUR ---
LEGAL COMPLIANCE OFFICER NOTE PT HAS ORDER FOR LASIX 40 MG, BUT LASIX WAS ALREADY ADMINISTERED TO PT IN ER AT 1605. CALLED FOR CLARIFICATION OF ORDER. ADVISED TO HOLD LASIX TONIGHT,AND GIVE ONLY TOMORROW AM AT 0900.
[~2022-09-30 12:33] MED LIST changes: -ACET325T53 PO; +POLY17PO4 PO
--- NOTE | 2022-09-30 12:53 | NUR ---
To ER bed 1, bib PA frm [facility] for noted tachypnea and o2 desaturation x today, aaox3, breathing even and non labored, connected to monitor, awaiting md benjamin
--- NOTE | 2022-09-30 13:10 | NUR ---
COVID SWAB DONE AND SENT TO LAB
[2022-09-30] MEDS ORDERED: QUET25TA GT ×2 (13:19)
[2022-09-30] MEDS ORDERED: CRAN3875 GT (13:19)
[2022-09-30] MEDS ORDERED: PANT40SU2 GT (13:19)
[2022-09-30] MEDS ORDERED: IPRA3AMP23 IH (13:19)
[2022-09-30] MEDS ORDERED: ALBU2.5V38 IH (13:19)
[2022-09-30] MEDS ORDERED: ZINC56.713 TP (13:19)
[2022-09-30] MEDS ORDERED: ZINC220C6 GT (13:19)
[2022-09-30] MEDS ORDERED: LACT1CAP69 GT (13:19)
[2022-09-30] MEDS ORDERED: CRAN425C6 GT (13:19)
[2022-09-30] MEDS ORDERED: AMIN30LI2 GT (13:19)
[2022-09-30 13:31] LABS: BASOPHILS % (AUTO) 0.2 % (0.0-2.0); EOSINOPHILS % (AUTO) 0.1 % (0.0-6.0); HEMATOCRIT 34 % (33-45); HEMOGLOBIN 10.8 g/dL (11.5-14.8); LYMPHOCYTES # (AUTO) 0.4 K/uL (0.8-4.8); LYMPHOCYTES % (AUTO) 6.3 % (20.0-44.0); MEAN CORPUSCULAR HGB CONC 32 g/dl (31.0-36.0); MEAN CORPUSCULAR VOLUME 94 fL (82-100); MONOCYTES # (AUTO) 0.5 K/uL (0.1-1.30); MONOCYTES % (AUTO) 7.3 % (2.0-12.0); NEUTROPHILS # (AUTO) 5.8 K/uL (1.8-8.9); NEUTROPHILS % (AUTO) 86.1 % (43.0-81.0); PLATELET COUNT (AUTO) 269 K/uL (150-450); RED BLOOD CELL COUNT(AUTO) 3.63 MIL/uL (4.0-5.2); WHITE BLOOD COUNT (AUTO) 6.8 K/uL (4.3-11.0)
[2022-09-30 13:37] LABS: CALCIUM, SERUM 9.3 mg/dL (8.5-10.1); CARBON DIOXIDE 39 mmol/L (21-32); CHLORIDE 92 mmol/L (98-107); CREATININE 0.7 mg/dL (0.6-1.3); GLUCOSE 121 mg/dL (74-106); POTASSIUM 5.1 mmol/L (3.5-5.1); SODIUM SERUM 130 mmol/L (136-145); UREA NITROGEN, BLOOD 25 mg/dL (7-18)
--- NOTE | 2022-09-30 14:00 | NUR ---
MOVE SHEET SUBMITTED.
[2022-09-30 14:10] LABS: ALBUMIN 2.6 g/dL (3.4-5.0); ALKALINE PHOSPHATASE 103 U/L (46-116); ASPARTATE AMINOTRANSFERASE 22 U/L (15-37); BILIRUBIN,DIRECT 0.1 mg/dL (0.0-0.2); BILIRUBIN,TOTAL 0.2 mg/dL (0.2-1.0); TOTAL PROTEIN, SERUM 6.9 g/dL (6.4-8.2)
[2022-09-30 14:52] LABS: ALANINE AMINOTRANSFERASE 17 U/L (12-78)
--- NOTE | 2022-09-30 14:55 | NUR ---
[facility] CALLED EVALUATOR PAGED.
--- NOTE | 2022-09-30 15:09 | NUR ---
DR. KERN SPEAKING WITH DR. MURRAY
[2022-09-30] MEDS ORDERED: FUROSEMIDE 40 MG/4 ML VIAL IV ONE (15:30)
[2022-09-30] MEDS ORDERED: FUROSEMIDE 40 MG/4 ML VIAL ONE (16:03)
[2022-09-30] MEDS ORDERED: JEVITY 1.2 CAL 1,000 ML BOTTLE GT SCH (16:30)
[2022-09-30] MEDS ORDERED: POLYETHYLENE GLYCOL 3350 17 GM POWD.PACK GT PRN (16:30)
[2022-09-30] MEDS ORDERED: ACETAMINOPHEN 325 MG TABLET PO PRN (16:30)
[2022-09-30] MEDS ORDERED: ALBUTEROL FS 2.5 MG/3 ML VIAL.NEB IH PRN (16:30)
[2022-09-30] MEDS ORDERED: QUETIAPINE FUMARATE 25 MG TABLET GT PRN (16:30)
[2022-09-30] MEDS ORDERED: MAG HYDROX/AL HYDROX/SIMETH 30 ML UDC GT PRN (17:00)
[2022-09-30] MEDS ORDERED: ONDANSETRON HCL/PF 4 MG/2 ML VIAL IVP PRN (17:00)
[2022-09-30] MEDS ORDERED: MAGNESIUM HYDROXIDE 30 ML UDC GT PRN (17:00)
[2022-09-30] MEDS ORDERED: MELATONIN 3 MG TABLET GT PRN (17:00)
[2022-09-30] MEDS ORDERED: Z GUARD REMEDY 4 OZ OINT TP PRN (17:00)
[2022-09-30] MEDS ORDERED: ACETAMINOPHEN 650 MG/20.3 ML UDC PO PRN (17:00)
[2022-09-30] MEDS ORDERED: ACETAMINOPHEN 650 MG/20.3 ML UDC GT PRN (17:00)
[2022-09-30] MEDS ORDERED: ENOXAPARIN SODIUM 30 MG/0.3 ML DISP.SYRIN ONE (17:55)
[2022-09-30] MEDS: ENOXAPARIN SODIUM 30 MG/0.3 ML DISP.SYRIN SQ SCH (17:58)
--- NOTE | 2022-09-30 19:37 | NUR ---
310 BED 1
--- NOTE | 2022-09-30 20:09 | NUR ---
report given to Gricelda DONALD to continue care.
--- NOTE | 2022-09-30 20:38 | NUR ---
TRANSFERRED TO 310 UNDER ACLS
[2022-09-30 20:41] VITALS: BP 106/46
--- NOTE | 2022-09-30 20:41 | NUR ---
TELE ADMISSION NOTE RECEIVED REPORT FROM NURSE ISABELLA. PT IS BEING ADMITTED WITH DIAGNOSIS OF CHF IN ROOM 310-1. PT IS A/O X1-2, WITH CONFUSION. ABLE TO MAKE SIMPLE NEEDS KNOWN. PT IS BEDBOUND. NO ACUTE DISTRESS NOTED AT TIME, NO S/S OF PAIN. PT ON TELE MONITOR A-FIB, WITH HR: 73. PT HAS MULTIPLE SKIN TEARS TO JANETH ELBOWS, RIGHT HAND, AND SKIN EXCORIATIONS TO RIGHT BUTTOCK, G-TUBE SITE AND LEFT THIGH, REDNESS TO JANETH HEELS. PT HAS PEG TUBE, WITH FEEDING JEVITY 1.2 AT 60 ML/HR. SAFETY MEASURES IN PLACE: CALL LIGHT WITHIN REACH, SIDE RAILS UP X2, BED LOCKED IN LOW POSITION. WILL CONTINUE TO MONITOR PT.
--- NOTE | 2022-09-30 20:46 | NUR ---
wheeled patient via gurney accompanied by RN and emt in no distress, RN assigned at bedside to assume care.
[2022-09-30] MEDS: FUROSEMIDE 40 MG/4 ML VIAL IV SCH (21:00)
[2022-09-30] MEDS: QUETIAPINE FUMARATE 25 MG TABLET GT SCH (23:53)
[2022-10-01] VITALS: BP 120/66
[2022-10-01 04:00] VITALS: BP 118/53
[2022-10-01 06:48] LABS: CREATININE 0.6 mg/dL (0.6-1.3); PHOSPHORUS 3.3 mg/dL (2.5-4.9); POTASSIUM 4.9 mmol/L (3.5-5.1)
--- NOTE | 2022-10-01 07:25 | NUR ---
ACTUARY CLERK CLOSING NOTE PT LEFT SLEEPING IN BED. PT A/O X2. PT ON O2 2L NC. NO S/S OF ACUTE DISTRESS , NO C/O PAIN AT THIS TIME. PT ON FEEING JEVITY 1.2, RUNNING AT 60 ML/HR. TOLERATING FEEDING WELL. ALL NEEDS ATTENDED. ALL MEDS ADMINISTERED BY MD TAVAREZ. PT HAS F/C. SAFETY MEASURES IN PLACE. BED IN LOW POSITION, SIDE RAILS UP X2, CALL LIGHT WITHIN REACH. WILL ENDORSE TO AM NURSE FOR MAYE.
--- NOTE | 2022-10-01 07:35 | NUR ---
GRADES 7 8 TUTOR OPENING NOTE RECEIVED PATIENT IN BED SLEEPING . PT ON O2 2L NC. NO SOB OR DISTRESS NOTED , NO C/O PAIN AND DISCOMFORT . PT ON FEEING JEVITY 1.2, RUNNING AT 60 ML/HR. TOLERATING FEEDING WELL. WITH PARKER CATHETER ON DRAINING WITH YELLOW COLORED URINE . IV ACCESS ON LFA #22 G AND R AC #20G SL AND INTACT . . SAFETY MEASURES IN PLACE. BED IN LOW POSITION, SIDE RAILS UP X2, CALL LIGHT WITHIN REACH. WILL CONTINUE TO MONITOR
[2022-10-01 08:00] VITALS: BP 133/71
[2022-10-01 08:42] LABS: BASOPHILS % (AUTO) 0.5 % (0.0-2.0); EOSINOPHILS % (AUTO) 2.5 % (0.0-6.0); HEMATOCRIT 31 % (33-45); HEMOGLOBIN 9.8 g/dL (11.5-14.8); LYMPHOCYTES # (AUTO) 0.3 K/uL (0.8-4.8); LYMPHOCYTES % (AUTO) 8.6 % (20.0-44.0); MEAN CORPUSCULAR HGB CONC 32 g/dl (31.0-36.0); MEAN CORPUSCULAR VOLUME 93 fL (82-100); MONOCYTES # (AUTO) 0.4 K/uL (0.1-1.30); MONOCYTES % (AUTO) 9.8 % (2.0-12.0); NEUTROPHILS # (AUTO) 3.2 K/uL (1.8-8.9); NEUTROPHILS % (AUTO) 78.6 % (43.0-81.0); PLATELET COUNT (AUTO) 231 K/uL (150-450); RED BLOOD CELL COUNT(AUTO) 3.28 MIL/uL (4.0-5.2); WHITE BLOOD COUNT (AUTO) 4.1 K/uL (4.3-11.0)
[2022-10-01] MEDS ORDERED: ZINC OXIDE 56.7 GM TUBE TP SCH (09:00)
[2022-10-01] MEDS: ACETAMINOPHEN 650 MG/20.3 ML UDC GT SCH (09:03)
[2022-10-01] MEDS: PANTOPRAZOLE 40 MG/PACK PACK GT SCH (09:03)
[2022-10-01] MEDS: LEVOTHYROXINE SODIUM 125 MCG TABLET GT SCH (09:04)
[2022-10-01] MEDS: FUROSEMIDE 40 MG/4 ML VIAL IV SCH (09:04)
[2022-10-01] MEDS ORDERED: CEFUROXIME AXETIL 250 MG TABLET PO SCH (10:30)
[2022-10-01] MEDS ORDERED: ALBUTEROL FS 2.5 MG/3 ML VIAL.NEB NEB SCH (10:30)
[2022-10-01] MEDS: methylPREDNISolone SOD SUCC 40 MG/ML VIAL IV SCH ×3 (11:15→21:06)
--- NOTE | 2022-10-01 11:30 | NUR ---
COMMISSARY WORKER NOTES INSERTED A NEW PARKER CATHETER FR 20 WITH GOOD RETURN URINE FLOW AND DRAINING WELL , NO BLEEDING NOTED
[2022-10-01 11:58] VITALS: BP 110/72
[2022-10-01] MEDS: ALBUTEROL FS 2.5 MG/3 ML VIAL.NEB NEB SCH ×3 (12:25→20:18)
[2022-10-01] MEDS: IPRATROPIUM NEB FS 0.5 MG/2.5 ML AMPUL.NEB NEB SCH ×3 (12:25→20:18)
[2022-10-01] MEDS: CEFTRIAXONE 1 G in IV D5W 50 ML IV SCH (13:27)
[2022-10-01] MEDS ORDERED: IPRATROPIUM NEB FS 0.5 MG/2.5 ML AMPUL.NEB NEB SCH (13:30)
--- NOTE | 2022-10-01 15:25 | NUR ---
TX DUE TO NEEDLE INJURY TO MY FINGER. PATIENT INTIALLY ON 2 L O2 WITH SAT 88 % TITRATE HIGHER TO TOLERATE PATIENT. CURRENTLY PATIENT IS ON 6 L NC O2. PATIENT WILL CONTINUE TO BE MONITOR. Addendum: 10/01/22 at 1527 by OXANA JANE RT Amended: Links added.
[2022-10-01 16:00] VITALS: BP 121/72
[2022-10-01] MEDS: ENOXAPARIN SODIUM 30 MG/0.3 ML DISP.SYRIN SQ SCH (17:29)
--- NOTE | 2022-10-01 18:53 | NUR ---
INDUSTRIAL ECONOMICS TEACHER CLOSING NOTE RECEIVED PATIENT IN BED SLEEPING . PT ON O2 2L NC. NO SOB OR DISTRESS NOTED , NO C/O PAIN AND DISCOMFORT . PT ON FEEING JEVITY 1.2, RUNNING AT 60 ML/HR. TOLERATING FEEDING WELL. WWITH PARKER CATHETER ON DRAINING WITH YELLOW COLORED URINE . IV ACCESS ON LFA #22 G AND R AC #20G SL AND INTACT . . SAFETY MEASURES IN PLACE. BED IN LOW POSITION, SIDE RAILS UP X2, CALL LIGHT WITHIN REACH. WILL CONTINUE TO MONITOR
--- NOTE | 2022-10-01 18:55 | NUR ---
RN CLOSING NOTES PATIENT WITH TELE MONITOR READING OF SINUS TACH HR 0F 105 - 110 BPM
--- NOTE | 2022-10-01 19:30 | NUR ---
COMMAND AND CONTROL SYSTEMS INTEGRATOR OPENING NOTE RECEIVED PT AWAKE IN BED. A/O X2 AND ABLE TO MAKE NEEDS KNOWN. PT ON O2 @ 2LPM VIA NC, TOLERATING WELL. NO SOB OR S/S OF RESPIRATORY DISTRESS. BREATHING EVEN AND UNLABORED. ON EXTERNAL ACROBATIC DANCER READING ST 110 BPM. IV ACCESS RAC 20G AND LFA 22G, INTACT AND PATENT. WITH [employer] RUNNING JEVITY 1.2 @ 60 CC/HR, TOLERATING WELL. WITH PARKER CATHETER IN PLACE DRAINING CLEAR YELLOW URINE BY GRAVITY. SAFETY PRECAUTIONS IN PLACE. BED IN LOWEST LOCKED POSITION, HOB ELEVATED, SIDE RAILS UP X3, AND CALL LIGHT AND TABLE WITHIN REACH. ALL NEEDS MET AT THIS TIME.
[2022-10-01 20:00] VITALS: BP 132/76
[2022-10-01] MEDS: QUETIAPINE FUMARATE 25 MG TABLET GT SCH (21:06)
[2022-10-02] VITALS: BP 151/66
[2022-10-02] MEDS: ALBUTEROL FS 2.5 MG/3 ML VIAL.NEB NEB SCH ×7 (00:50→23:44)
[2022-10-02] MEDS: IPRATROPIUM NEB FS 0.5 MG/2.5 ML AMPUL.NEB NEB SCH ×4 (00:50→20:11)
--- NOTE | 2022-10-02 02:27 | NUR ---
RN NOTE PT SHOWING SIGNS OF AGITATION. NOTED WITH INCREASED HR, RESTLESS, REMOVING BLANKETS FROM BED. ADMINISTERED QUETIAPINE 12.5 MG FOR AGITATION PRN. PT KEPT CLEAN AND DRY. MADE COMFORTABLE IN BED. ALL NEEDS MET AT THIS TIME.
[2022-10-02] MEDS: JEVITY 1.2 CAL 1,000 ML BOTTLE GT PRN (03:16)
[2022-10-02 04:00] VITALS: BP 146/77
[2022-10-02] MEDS: methylPREDNISolone SOD SUCC 40 MG/ML VIAL IV SCH ×3 (05:27→22:09)
[2022-10-02 06:21] LABS: HEMATOCRIT 33 % (33-45); HEMOGLOBIN 10.5 g/dL (11.5-14.8); LYMPHOCYTES # (AUTO) 0.2 K/uL (0.8-4.8); LYMPHOCYTES % (AUTO) 6.3 % (20.0-44.0); MEAN CORPUSCULAR HGB CONC 32 g/dl (31.0-36.0); MEAN CORPUSCULAR VOLUME 92 fL (82-100); MONOCYTES # (AUTO) 0.1 K/uL (0.1-1.30); MONOCYTES % (AUTO) 2.5 % (2.0-12.0); NEUTROPHILS # (AUTO) 2.9 K/uL (1.8-8.9); NEUTROPHILS % (AUTO) 91.2 % (43.0-81.0); PLATELET COUNT (AUTO) 273 K/uL (150-450); RED BLOOD CELL COUNT(AUTO) 3.54 MIL/uL (4.0-5.2); WHITE BLOOD COUNT (AUTO) 3.2 K/uL (4.3-11.0)
[2022-10-02 06:26] LABS: CALCIUM, SERUM 9.4 mg/dL (8.5-10.1); CREATININE 0.8 mg/dL (0.6-1.3)
--- NOTE | 2022-10-02 06:50 | NUR ---
ELECTRONIC COMMUNICATIONS TECHNICIAN CLOSING NOTE PT AWAKE IN BED. A/O X1 AND ABLE TO MAKE NEEDS KNOWN. PT ON O2 @ 2LPM VIA NC, TOLERATING WELL. NO SOB OR S/S OF RESPIRATORY DISTRESS. BREATHING EVEN AND UNLABORED. ON EXTERNAL CAR RENTAL CLERK READING SR WITH PVCS AND PACS 98 BPM. IV ACCESS RAC 20G AND LFA 22G, INTACT AND PATENT. WITH GTUBE RUNNING JEVITY 1.2 @ 60 CC/HR, TOLERATING WELL. WITH PARKER CATHETER IN PLACE DRAINING CLEAR YELLOW URINE BY GRAVITY, 600 CC DRAINED THIS SHIFT. KEPT CLEAN AND DRY. TURNED AND REPOSITIONED Q2H. SAFETY PRECAUTIONS IN PLACE AT ALL TIMES. BED IN LOWEST LOCKED POSITION, HOB ELEVATED, SIDE RAILS UP X3, AND CALL LIGHT AND TABLE WITHIN REACH. ALL NEEDS MET AT THIS TIME AND WILL ENDORSE TO ONCOMING NURSE FOR MAYE.
[2022-10-02] MEDS: LEVOTHYROXINE SODIUM 125 MCG TABLET GT SCH (07:45)
--- NOTE | 2022-10-02 07:45 | NUR ---
BOOK AGENT OPENING NOTE RECEIVED PT LYING IN BED. A/O X1-2, EPISODES OF CONFUSION, ABLE TO MAKE NEEDS KNOWN. ON O2 @ 2LPM VIA NC, TOLERATING WELL. NOT ON SOB OR S/S OF RESPIRATORY NOR ANY APPARENT DISTRESS. BREATHING IS EVEN AND UNLABORED. TELEMONITORING READS SR W PACS AT 95 BPM AT THIS TIME. IV ACCESSES ON RAC 20G AND LFA 22G, INTACT AND PATENT, FLUSHING WELL WITH SALINE. WITH GTUBE RUNNING JEVITY 1.2 @ 60 CC/HR, TOLERATING WELL. PARKER CATHETER IN PLACE DRAINING CLEAR YELLOW URINE WITHOUT ANY SEDIMENTS BY GRAVITY. SAFETY PRECAUTIONS IN PLACE. BED IN LOWEST LOCKED POSITION, HOB ELEVATED, SIDE RAILS UP X3, AND CALL LIGHT AND TRAY ABLE WITHIN REACH. WILL CONTINUE TO MONITOR DURING MY SHIFT.
[2022-10-02 08:00] VITALS: BP 127/79
--- NOTE | 2022-10-02 08:25 | NUR ---
RN NOTES WOUND CARE NURSE AT BEDSIDE. WOUND CARE/SKIN ASSESSMENT PLAN CREATED
--- NOTE | 2022-10-02 08:31 | NUR ---
WOUND CARE CONSULT: PT PRESENTS WITH MULTIPLE AREAS OF SKIN DISCOLORATION INCLUDING FACE AND UPPER EXTREMITIES, SACRAL INTACT DEEP TISSUE INJURY WITH SCARRING, REDNESS TO HEELS AND CALLUS TO LEFT FOOT, ALL PRESENT ON ADMISSION. DR HICKS NOTIFIED OF SURGICAL CONSULT. DISCUSSED SKIN PROTECTION WITH NURSING STAFF. MD IN AGREEMENT WITH PLAN OF CARE. ELENA SHEETS NOTED.
--- NOTE | 2022-10-02 08:31 | NUR ---
RN NOTES RT AT BEDSIDE
[2022-10-02] MEDS: ACETAMINOPHEN 650 MG/20.3 ML UDC GT SCH (08:37)
[2022-10-02] MEDS: PANTOPRAZOLE 40 MG/PACK PACK GT SCH (08:37)
[2022-10-02] MEDS: ZINC OXIDE 56.7 GM TUBE TP SCH (08:53)
[2022-10-02] MEDS ORDERED: acetaZOLAMIDE SODIUM 500 MG/VIAL VIAL IV SCH (09:30)
[2022-10-02 12:00] VITALS: BP 140/56
[2022-10-02] MEDS: CEFTRIAXONE 1 G in IV D5W 50 ML IV SCH (12:58)
[2022-10-02 16:00] VITALS: BP 131/75
--- NOTE | 2022-10-02 16:00 | NUR ---
RN NOTES PATIENT'S HEART RATE REGISTERED AT 109S BPM. MARIA ISABEL AND DR MENDOZA HAVE BEEN INFORMED. EKG HAS BEEN ORDERED AND RESULTS WERE RELAYED TO BOTH.
[2022-10-02] MEDS: ENOXAPARIN SODIUM 30 MG/0.3 ML DISP.SYRIN SQ SCH (17:48)
[2022-10-02 18:11] LABS: ABG BASE EXCESS 11.7 mmol/L; ABG PH 7.519 (7.350-7.450); ABG PO2 63.4 mmHg (75.0-100.0); COHb 0.3 % (0.5-1.5); MetHb 0.2 % (0.0-1.5); O2Hb 92.3 % (94.0-97.0); SITE, ABG Right Radial
--- NOTE | 2022-10-02 19:23 | NUR ---
[employer] INTERN CLOSING NOTE PT LYING IN BED. A/O X1, EPISODES OF CONFUSION, ABLE TO MAKE NEEDS KNOWN. ON @ 3LPM VIA NC, TOLERATING WELL. BREATHING IS EVEN AND UNLABORED. NO SOB NOTED. TELEMONITORING READS SINUS TACHY AT 115 BPM AT THIS TIME, MD IS AWARE. IV ACCESS ON RAC 20G PATENT, FLUSHING WELL AND COVERED WITH SLEEVE. LFA 22G HAS BEEN ACCIDENTALLY REMOVED BY THE PATIENT, NO ACTIVE BLEEDING NOTED,. WITH GTUBE RUNNING JEVITY 1.2 @ 60 CC/HR, TOLERATING WELL. PARKER CATHETER IN PLACE DRAINING CLEAR YELLOW URINE WITHOUT ANY SEDIMENTS BY GRAVITY, ABOUT 600 ML OF URINE DRAINED. SAFETY PRECAUTIONS MAINTAINED. BED IN LOWEST LOCKED POSITION, HOB ELEVATED, SIDE RAILS UP X3, AND CALL LIGHT AND TRAY ABLE WITHIN REACH. ENDORSED TO THE WELLNESS DIRECTOR NURSE.
--- NOTE | 2022-10-02 19:30 | NUR ---
RN OPENING NOTE PATIENT IN BED, AWAKE. PATIENT A/O X 1 AT THIS TIME, CONFUSED. PATIENT PULLED OUT LFA IV ACCESS. PATIENT IS ON 3LPM O2 SUPPLEMENTATION VIA NC, TOLERATING WELL, NO SOB OR DIFFICULTY BREATHING NOTED. PATIENT HAS A GTUBE RUNNING 60 ML/HR. NO RESIDUAL, TOLERATES FEEDING WELL. HOB ELEVATED, ASPIRATION PRECAUTION IN PLACE. SAFETY MEASURES IN PLACE: BED LOCKED AND IN LOWEST POSITION, CALL LIGHT WITHIN REACH, SIDE RAILS UP. WILL MONITOR PATIENT CLOSELY.
[2022-10-02 20:00] VITALS: BP 135/80
[2022-10-02] MEDS: QUETIAPINE FUMARATE 25 MG TABLET GT SCH (22:10)
--- NOTE | 2022-10-02 22:12 | NUR ---
TELE NS NOTES QUETIAPINE GIVEN 12.5 MG, WASTED 12.5 MG. SHABANA ZAPIEN WITNESSED.
--- NOTE | 2022-10-02 23:44 | NUR ---
RT NOTE INCREASED FIO2 DUE TO LOW SPO2. PT TOLERATING 3LPM NASAL CANNULA WELL.
[2022-10-03] VITALS: BP 131/82
[2022-10-03] MEDS: IPRATROPIUM NEB FS 0.5 MG/2.5 ML AMPUL.NEB NEB SCH ×3 (00:41→13:26)
[2022-10-03 04:00] VITALS: BP 127/87
[2022-10-03] MEDS: ALBUTEROL FS 2.5 MG/3 ML VIAL.NEB NEB SCH ×3 (04:13→12:08)
[2022-10-03] MEDS: methylPREDNISolone SOD SUCC 40 MG/ML VIAL IV SCH ×2 (04:33→12:56)
[2022-10-03] MEDS: JEVITY 1.2 CAL 1,000 ML BOTTLE GT PRN (04:34)
--- NOTE | 2022-10-03 06:00 | NUR ---
WEIGHED PATIENT- 171 LBS WITHOUT DVT PUMP AND PILLOWS
--- NOTE | 2022-10-03 06:52 | NUR ---
RN CLOSING NOTE PATIENT IN BED, EYES CLOSED, SLEEPING, EASILY AWAKENED. PATIENT A/O X 1 AT THIS TIME, CONFUSED. PATIENT IS ON 3LPM O2 SUPPLEMENTATION VIA NC, TOLERATING WELL, NO SOB OR DIFFICULTY BREATHING NOTED. PATIENT HAS A G-TUBE IN THE APPROPRIATE PLACE, TUBE FEEDING RUNNING 60 ML/HR. NO RESIDUAL, TOLERATED FEEDING WELL DURING THE SHIFT. PARKER CATHETER IN PLACE DRAINING YELLOW URINE VIA GRAVITY. HOB ELEVATED, ASPIRATION PRECAUTION IN PLACE. SAFETY MEASURES IN PLACE: BED LOCKED AND IN LOWEST POSITION, CALL LIGHT WITHIN REACH, SIDE RAILS UP. WILL ENDORSE PATIENT TO DAY SHIFT NURSE FOR MAYE.
[2022-10-03 06:53] LABS: BASOPHILS % (AUTO) 0.1 % (0.0-2.0); HEMATOCRIT 34 % (33-45); HEMOGLOBIN 11.1 g/dL (11.5-14.8); LYMPHOCYTES # (AUTO) 0.2 K/uL (0.8-4.8); MEAN CORPUSCULAR HGB CONC 33 g/dl (31.0-36.0); MEAN CORPUSCULAR VOLUME 92 fL (82-100); MONOCYTES # (AUTO) 0.1 K/uL (0.1-1.30); MONOCYTES % (AUTO) 2.9 % (2.0-12.0); NEUTROPHILS # (AUTO) 4.3 K/uL (1.8-8.9); PLATELET COUNT (AUTO) 284 K/uL (150-450); RED BLOOD CELL COUNT(AUTO) 3.69 MIL/uL (4.0-5.2); WHITE BLOOD COUNT (AUTO) 4.7 K/uL (4.3-11.0)
--- NOTE | 2022-10-03 07:35 | NUR ---
RIGHT OF WAY CLEARER OPENING NOTE PT LYING IN BED. A/O X1, EPISODES OF CONFUSION, ABLE TO MAKE NEEDS KNOWN. ON @ 3LPM VIA NC, TOLERATING WELL. BREATHING IS EVEN AND UNLABORED. NO SOB NOTED. TELEMONITORING READS SINUS TACHY AT 115 BPM AT THIS TIME, IS AWARE. IV ACCESS ON RAC 20G PATENT, FLUSHING WELL AND COVERED WITH SLEEVE. WITH GTUBE RUNNING JEVITY 1.2 @ 60 CC/HR, TOLERATING WELL. PARKER CATHETER IN PLACE DRAINING CLEAR YELLOW URINE WITHOUT ANY SEDIMENTS BY GRAVITY, ABOUT 600 ML OF URINE DRAINED. SAFETY PRECAUTIONS MAINTAINED. BED IN LOWEST LOCKED POSITION, HOB ELEVATED, SIDE RAILS UP X3, AND CALL LIGHT AND TRAY ABLE WITHIN REACH. ENDORSED TO THE HOUSE MOTHER NURSE.
[2022-10-03 07:40] LABS: CALCIUM, SERUM 9.6 mg/dL (8.5-10.1); CARBON DIOXIDE 35 mmol/L (21-32); CHLORIDE 96 mmol/L (98-107); CREATININE 0.6 mg/dL (0.6-1.3); GLUCOSE 133 mg/dL (74-106); MAGNESIUM 2.3 mg/dL (1.8-2.4); PHOSPHORUS 3.3 mg/dL (2.5-4.9); POTASSIUM 4.1 mmol/L (3.5-5.1); SODIUM SERUM 138 mmol/L (136-145); UREA NITROGEN, BLOOD 31 mg/dL (7-18)
[2022-10-03 08:00] VITALS: BP 139/98
[2022-10-03] MEDS: PANTOPRAZOLE 40 MG/PACK PACK GT SCH (08:17)
[2022-10-03] MEDS: LEVOTHYROXINE SODIUM 125 MCG TABLET GT SCH (08:17)
[2022-10-03] MEDS: ACETAMINOPHEN 650 MG/20.3 ML UDC GT SCH (08:18)
[2022-10-03] MEDS ORDERED: JEVITY 1.2 CAL 1,000 ML BOTTLE GT PRN (08:27)
[2022-10-03] MEDS ORDERED: IV NS 0.9% 1,000 ML IV PRN (09:00)
--- NOTE | 2022-10-03 09:10 | NUR ---
RN NOTES TRANSFERRED PATIENT BACK TO [place], TELEBOX SURRENDERED TO [place]. IV CHANGED TO NS AT 70 ML/HR
[2022-10-03] MEDS: ZINC OXIDE 56.7 GM TUBE TP SCH (09:12)
[2022-10-03] MEDS: CEFTRIAXONE 1 G in IV D5W 50 ML IV SCH (12:05)
[2022-10-03] MEDS ORDERED: METH4TAB3 PO (13:19)
[2022-10-03] MEDS ORDERED: AMOX-427 PO (13:19)
--- NOTE | 2022-10-03 14:10 | NUR ---
MS MOTION DESIGNER NOTES PT DISCHARGED TO [facility]. PT AOX1, UNABLE TO FULLY MAKE NEEDS KNOWN, ON 2LPM OXYGEN VIA NASAL CANNULA SATURATING WELL WITH 98%. NO SOB NOTED, NOT IN ANY SIGN OF RESPIRATORY DISTRESS. VITAL SIGNS TAKEN, STABLE, AND RECORDED. SKIN ASSESSMENT DONE-PICTURES TAKEN, STILL THE SAME SKIN ISSUES DURING ADMISSION. DENIES PAIN OR DISCOMFORT AT THIS TIME. NO BELONGINGS NOTED. DISCHARGE INSTRUCTIONS RELAYED TO SHABANA DOSS OF [facility]. MEDS RECONCILIATION AND COVID TEST RESULTS GIVEN. IV ACCESS IN RAC G#20 REMOVED WITH NO ACTIVE BLEEDING NOTED. PARKER KEPT IN PLACE PER SNF REQUEST. DRY PRESSURE DRESSING APPLIED AT THE SITE. PT LEFT THE UNIT AT 1400 VIA GURNEY ACCOMPANIED BY 2 BEAD INSPECTOR. CHARGE NURSE AND MD AWARE OF THE DISCHARGE.
[2022-10-03] MEDS ORDERED: AMMONIUM LACTATE 227 GM BOTTLE TP SCH (17:00)
== END 2022-10-03 14:30 | DRG 682 ==
LOC: ER 12:35 → TRANSITION 15:31 → TELE 19:37
PROVIDERS: ADMIT Internal Medicine; ATTEND Student in an Organized Health Care Education/Training Program
DX: I12.9 Hypertensive chronic kidney disease with stage 1 through stage 4 chronic kidney disease, or unspecified chronic kidney disease (principal); G93.41 Metabolic encephalopathy; I50.33 Acute on chronic diastolic (congestive) heart failure; J96.21 Acute and chronic respiratory failure with hypoxia; J96.22 Acute and chronic respiratory failure with hypercapnia; N17.0 Acute kidney failure with tubular necrosis; M31.19 Other thrombotic microangiopathy; E87.1 Hypo-osmolality and hyponatremia; J44.1 Chronic obstructive pulmonary disease with (acute) exacerbation; E87.3 Alkalosis; Z20.822 Contact with and (suspected) exposure to COVID-19; F03.90 Unspecified dementia, unspecified severity, without behavioral disturbance, psychotic disturbance, mood disturbance, and anxiety; E11.9 Type 2 diabetes mellitus without complications; I48.91 Unspecified atrial fibrillation; K21.9 Gastro-esophageal reflux disease without esophagitis; Z86.74 Personal history of sudden cardiac arrest; K43.9 Ventral hernia without obstruction or gangrene; R13.10 Dysphagia, unspecified; E03.9 Hypothyroidism, unspecified; Z79.51 Long term (current) use of inhaled steroids; Z79.899 Other long term (current) drug therapy; D63.8 Anemia in other chronic diseases classified elsewhere; M20.41 Other hammer toe(s) (acquired), right foot; M20.42 Other hammer toe(s) (acquired), left foot; L85.3 Xerosis cutis; L89.626 Pressure-induced deep tissue damage of left heel; L89.616 Pressure-induced deep tissue damage of right heel; Z93.1 Gastrostomy status; N18.9 Chronic kidney disease, unspecified
CPT/HCPCS: 36415; 36600; 71045-TC; 80048-TC; 80076-TC; 82803-TC; 83605-TC; 83735-TC; 83880; 84100-TC; 84484-TC; 85025-TC; 85730-TC; 87081-TC; 92526; 92611-TC; 94799-TC; G0378; J0696; J1120; J1650; J1940; J2920; J7030; J7040; J7060

== ENCOUNTER 2022-11-12 14:52 | Inpatient (IN) | payer MEDICARE, OTHER ==
[~2022-11-12] VITALS: Ht 167.6 cm; Wt 80.7 kg
[~2022-11-12 14:52] MED LIST changes: -ALBU2.5V13 NEB; +ALBU2.5V38 IH; -ALBUT2 NEB; +AMIN30LI2 GT; +AMOX-427 PO; -ASCO500T21 GT; -CEFE2PIG2 IV; +CRAN3875 GT; +CRAN425C6 GT; -IPRA0.2S9 NEB; +IPRA3AMP23 IH; +LACT1CAP69 GT; +METH4TAB3 PO; +PANT40SU2 GT; -PANT40TA2 GT; -POLY17PO4 PO; +QUET25TA GT; +ZINC220C6 GT; +ZINC56.713 TP
[2022-11-12] MEDS ORDERED: ACET-2605 GT (15:24)
[2022-11-12] MEDS ORDERED: ALBU0.633 IH (15:24)
[2022-11-12] MEDS ORDERED: ASCO500T10 GT (15:24)
[2022-11-12] MEDS ORDERED: MAGN400O6 GT (15:24)
[2022-11-12 15:53] LABS: BASOPHILS % (AUTO) 0.3 % (0.0-2.0); EOSINOPHILS % (AUTO) 2.1 % (0.0-6.0); HEMATOCRIT 37 % (33-45); HEMOGLOBIN 11.3 g/dL (11.5-14.8); LYMPHOCYTES # (AUTO) 0.3 K/uL (0.8-4.8); LYMPHOCYTES % (AUTO) 4.1 % (20.0-44.0); MEAN CORPUSCULAR HGB CONC 31 g/dl (31.0-36.0); MEAN CORPUSCULAR VOLUME 96 fL (82-100); MONOCYTES # (AUTO) 0.5 K/uL (0.1-1.30); MONOCYTES % (AUTO) 6.3 % (2.0-12.0); NEUTROPHILS # (AUTO) 6.8 K/uL (1.8-8.9); NEUTROPHILS % (AUTO) 87.2 % (43.0-81.0); PLATELET COUNT (AUTO) 250 K/uL (150-450); WHITE BLOOD COUNT (AUTO) 7.8 K/uL (4.3-11.0)
--- NOTE | 2022-11-12 16:03 | NUR ---
established iv line left ac 22 g
--- NOTE | 2022-11-12 16:11 | NUR ---
[facility] CALLED GELATIN POWDER MIXER PAGED.
[2022-11-12 16:20] LABS: ALANINE AMINOTRANSFERASE 28 U/L (12-78); ALBUMIN 2.8 g/dL (3.4-5.0); ALKALINE PHOSPHATASE 96 U/L (46-116); ASPARTATE AMINOTRANSFERASE 19 U/L (15-37); BILIRUBIN,DIRECT 0.1 mg/dL (0.0-0.2); BILIRUBIN,TOTAL 0.3 mg/dL (0.2-1.0); CALCIUM, SERUM 9.2 mg/dL (8.5-10.1); CHLORIDE 92 mmol/L (98-107); CREATININE 0.5 mg/dL (0.6-1.3); GLUCOSE 116 mg/dL (74-106); POTASSIUM 4.9 mmol/L (3.5-5.1); SODIUM SERUM 133 mmol/L (136-145); TOTAL PROTEIN, SERUM 6.5 g/dL (6.4-8.2); UREA NITROGEN, BLOOD 20 mg/dL (7-18)
--- NOTE | 2022-11-12 16:23 | NUR ---
covid/influenza swab collected
--- NOTE | 2022-11-12 16:43 | NUR ---
TROPONIN 160
--- NOTE | 2022-11-12 17:04 | NUR ---
LAB REPORT CO2 42
[2022-11-12 17:06] LABS: CARBON DIOXIDE 42 mmol/L (21-32)
[2022-11-12] MEDS ORDERED: JEVITY 1.2 CAL 1,000 ML BOTTLE GT SCH (18:00)
[2022-11-12] MEDS ORDERED: POLYETHYLENE GLYCOL 3350 17 GM POWD.PACK GT PRN (18:00)
[2022-11-12] MEDS ORDERED: ACETAMINOPHEN ES 500 MG TABLET GT PRN (18:00)
[2022-11-12] MEDS ORDERED: MAGNESIUM HYDROXIDE 30 ML UDC GT PRN (18:00)
[2022-11-12 18:27] LABS: ABG BASE EXCESS 20.3 mmol/L; ABG PCO2 148.4 mmHg (35.0-45.0); ABG PH 7.185 (7.350-7.450); COHb 0.2 % (0.5-1.5); MetHb 0.5 % (0.0-1.5); SITE, ABG Right Brachial; VENT MODE, BG NRB 15 LPM
[2022-11-12] MEDS ORDERED: Z GUARD REMEDY 4 OZ OINT TP PRN (18:30)
[2022-11-12] MEDS ORDERED: MAGNESIUM HYDROXIDE 30 ML UDC PO PRN (18:30)
[2022-11-12] MEDS ORDERED: MAG HYDROX/AL HYDROX/SIMETH 30 ML UDC PO PRN (18:30)
[2022-11-12] MEDS ORDERED: ACETAMINOPHEN 325 MG TABLET PO PRN (18:30)
[2022-11-12] MEDS ORDERED: ONDANSETRON HCL/PF 4 MG/2 ML VIAL IVP PRN (18:30)
--- NOTE | 2022-11-12 18:56 | NUR ---
etomidate 1855
--- NOTE | 2022-11-12 18:57 | NUR ---
succinylcholine 1856, ET tube placed at 1859
[2022-11-12] MEDS ORDERED: ETOMIDATE 2 MG/ML VIAL IV ONE (19:00)
[2022-11-12] MEDS ORDERED: IV NS 0.9% 1,000 ML IV ONE (19:00)
[2022-11-12] MEDS ORDERED: PROPOFOL 100 ML IV ONE (19:00)
[2022-11-12] MEDS ORDERED: SUCCINYLCHOLINE CHLORIDE 20 MG/ML VIAL IV ONE ×2 (19:00→19:30)
--- NOTE | 2022-11-12 19:00 | NUR ---
rt in er for intubation. ett 7.5@21cm placed by er physician. mist in the tube, positive color change, bilateral breath sounds and bilateral chest rise. pt placed on vent ac 16 475 100% +5 per er md verbal order. ett secured via anchorfast. Addendum: 11/12/22 at 2356 by DORIS GIRON RT Amended: Links added.
[2022-11-12] MEDS ORDERED: PROPOFOL 100 ML ONE (19:24)
[2022-11-12] MEDS ORDERED: ACETAMINOPHEN 650 MG/20.3 ML UDC GT PRN ×2 (19:30)
[2022-11-12] MEDS ORDERED: ALBUTEROL FS 2.5 MG/0.5 ML VIAL.NEB NEB PRN (19:30)
--- NOTE | 2022-11-12 19:35 | NUR ---
RECEIVED REPORT FROM SHABANA WEINER. PATIENT IS INTUBATED DUE TO RESP. DISTRESS. PATIENT IS WITH ET 7.5, LIP LEVEL 21, WITH NGT ON LEFT NOSTRIL LEVEL OF 62, NGT ON SITU VERIFIED BY XRAY. WITH IV LINE ON LEFT AND RIGHT HAND G20. PATIENT IS AAOX0. ON PROPOFOL DRIP AT 0.5mcg/kg/min AND IL IV 0.9NS BOLUS. ATTACHED TO MONITOR. VITALS CHECKED AND BEING MONITORED
--- NOTE | 2022-11-12 19:35 | NUR ---
PATIENT ATTACHED TO VENT ON AC MODE, FIO2 100%, TV 475ML, RATE 16, PEEP 5.
--- NOTE | 2022-11-12 20:23 | NUR ---
REPORT GIVEN TO SHABANA SOTELO OF ICU
--- NOTE | 2022-11-12 20:25 | NUR ---
INCREASED RATE OF PROPOFOL AT 5MCG/KG/MIN. BP 137/81mmHg
--- NOTE | 2022-11-12 20:30 | NUR ---
TRANSFERRED PATIENT TO ICU WITH ONGOING PROPOFOL RUNNING AT 10MCG/KG/MIN AND IVF NS BOLUS. PATIENT BP 124/95mmHg. WITH ET ATTACHED TO AMBUBAG AT 15LPM. ACCOMPANIED BY RT AND RN.
[2022-11-12 20:37] LABS: ABG BASE EXCESS 6.1 mmol/L; ABG PCO2 74.8 mmHg (35.0-45.0); ABG PH 7.286 (7.350-7.450); ABG PO2 436.6 mmHg (75.0-100.0); COHb 0.3 % (0.5-1.5); MetHb 0.4 % (0.0-1.5); O2Hb 98.9 % (94.0-97.0); SITE, ABG Left Radial; VT, ABG 425 mL
--- NOTE | 2022-11-12 20:39 | NUR ---
GETTING TRANSFRRED TO ICU UNDER ACLS, RN AND RT ACCOMPANYING THE PT
[2022-11-12 20:43] VITALS: BP 96/65
[2022-11-12 21:00] VITALS: BP 96/65
[2022-11-12] MEDS: PROPOFOL 100 ML IV PRN ×2 (21:00→21:19)
[2022-11-12] MEDS: ASPIRIN 81 MG TAB.CHEW GT SCH (21:14)
[2022-11-12] MEDS: ENOXAPARIN SODIUM 40 MG/0.4 ML DISP.SYRIN SQ SCH (21:14)
[2022-11-12] MEDS: QUETIAPINE FUMARATE 25 MG TABLET GT SCH (21:15)
[2022-11-12 22:00] VITALS: BP 102/73
--- NOTE | 2022-11-12 22:00 | NUR ---
ICU/RN: LEFT HAND IV INFILTRATED. LINE DC'D. CATH TIP INTACT. DRESSING APPLIED. EXTREMITY ELEVATED. PICTURE TAKEN AND PLACED IN CHART.
[2022-11-12 23:01] VITALS: BP 127/100
[2022-11-12 23:17] VITALS: BP 137/77
[2022-11-13] VITALS (62 sets, daily range): BP systolic 61–150; BP diastolic 42–130
[2022-11-13] MEDS ORDERED: PHENYLEPHRINE 10 MG/ML VIAL ONE (00:17)
[2022-11-13] MEDS: methylPREDNISolone SOD SUCC 40 MG/ML VIAL IV SCH ×4 (00:19→17:21)
[2022-11-13] MEDS ORDERED: PHENYLEPHRINE 100 MG in IV NS 0.9% 240 ML IV PRN (00:30)
--- NOTE | 2022-11-13 00:39 | NUR ---
ICU/RN: NET APPLICATION ARCHITECT JOHANNA PLACE RIGHT SIDE EJ #20 IV FOR STARTING OF VASOPRESSORS. PT TOLERATED WELL.
[2022-11-13] MEDS: PROPOFOL 100 ML IV PRN (00:43)
[2022-11-13 05:08] LABS: BASOPHILS % (AUTO) 0.1 % (0.0-2.0); EOSINOPHILS % (AUTO) 0.3 % (0.0-6.0); HEMATOCRIT 35 % (33-45); LYMPHOCYTES # (AUTO) 0.3 K/uL (0.8-4.8); LYMPHOCYTES % (AUTO) 2.4 % (20.0-44.0); MEAN CORPUSCULAR HGB CONC 32 g/dl (31.0-36.0); MEAN CORPUSCULAR VOLUME 95 fL (82-100); MONOCYTES # (AUTO) 0.3 K/uL (0.1-1.30); MONOCYTES % (AUTO) 2.9 % (2.0-12.0); NEUTROPHILS # (AUTO) 10.5 K/uL (1.8-8.9); NEUTROPHILS % (AUTO) 94.3 % (43.0-81.0); PLATELET COUNT (AUTO) 269 K/uL (150-450); WHITE BLOOD COUNT (AUTO) 11.1 K/uL (4.3-11.0)
[2022-11-13 05:26] LABS: CALCIUM, SERUM 9.1 mg/dL (8.5-10.1); CHLORIDE 95 mmol/L (98-107); CREATININE 0.5 mg/dL (0.6-1.3); GLUCOSE 98 mg/dL (74-106); MAGNESIUM 2.1 mg/dL (1.8-2.4); POTASSIUM 5.2 mmol/L (3.5-5.1); SODIUM SERUM 134 mmol/L (136-145); UREA NITROGEN, BLOOD 21 mg/dL (7-18)
[2022-11-13 05:30] LABS: CARBON DIOXIDE 40 mmol/L (21-32)
--- NOTE | 2022-11-13 07:15 | NUR ---
WOUND CARE CONSULT: LIMITED ASSESSMENT AT THIS TIME DUE TO PT SLEEPING SOUNDLY. PT CURRENTLY INTUBATED AND NOTED TO HAVE REDNESS AND EDEMA TO LEFT HAND AND ARM. LEFT UPPER EXTREMITY ELEVATED ON PILLOW. REVIEWED CHART, NURSING DOCUMENTATION AND PHOTOS WHICH INDICATE SACRAL INTACT DEEP TISSUE INJURY WITH SCARRING, PRESENT ON ADMISSION. RECOMMENDATIONS MADE FOR SKIN PROTECTION. DISCUSSED WITH NURSING STAFF. DR HICKS FOLLOWS PT FOR WOUND CARE. MD IN AGREEMENT WITH PLAN OF CARE.
--- NOTE | 2022-11-13 07:15 | NUR ---
FREELANCE ART DIRECTOR Bedside report taken from [facility] nurse Bob DONALD. pt sedated, moves bue 2/5 and ble0/5 does not follow commands, open eyes or track. perrla. pt intubated on fio2 60 % taras lung sounds coarse. spo2 99 %, pt NSR on monitor bue and ble pulses present. pt has peg getting jevity 30 ml/hr tolerating well, residuals 0 ml. bowel sounds present. pt has hightower intact and draining ginger color urine. wounds noted, see flowsheet. all lines traced. all drips verified. safety measures and restraints in place. no signs of acute distress at this time. PICC placement pending. will continue to monitor.
--- NOTE | 2022-11-13 07:15 | NUR ---
MEDICAL STAFF PHYSICIAN Wound nurse Tran RN at bedside assessing pt and wounds. new orders pending.
--- NOTE | 2022-11-13 08:10 | NUR ---
YOUTH SPECIALIST Emergency PICC consent signed by Dr Allen, verified with Charge nurse Reynaldo DONALD and placed in pt chart.
[2022-11-13 08:27] LABS: ABG BASE EXCESS 10.4 mmol/L; ABG OXYGEN SATURATION 98.8 % (92.0-98.5); ABG PCO2 45.9 mmHg (35.0-45.0); ABG PH 7.499 (7.350-7.450); ABG PO2 114.5 mmHg (75.0-100.0); AaDO2 262.8 mmHg; COHb 0.7 % (0.5-1.5); MetHb 0.3 % (0.0-1.5); O2Hb 97.8 % (94.0-97.0); SITE, ABG Right Radial
[2022-11-13] MEDS: ASPIRIN 81 MG TAB.CHEW GT SCH (08:48)
[2022-11-13] MEDS: ASCORBIC ACID 500 MG TABLET GT SCH (08:49)
[2022-11-13] MEDS: ACETAMINOPHEN 650 MG/20.3 ML UDC GT SCH (08:49)
[2022-11-13] MEDS: PANTOPRAZOLE 40 MG/PACK PACK GT SCH (08:49)
[2022-11-13] MEDS: LEVOTHYROXINE SODIUM 125 MCG TABLET GT SCH (08:49)
--- NOTE | 2022-11-13 09:00 | NUR ---
FOOD SERVICE KITCHEN SUPERVISOR Dr Allen at bedside assessing pt and updated on pt status. propofol off at this time per md. sedation vacation in progress, no other orders at this time. safety measures in place. will continue to monitor.
--- NOTE | 2022-11-13 09:15 | NUR ---
DEPUTY ASSESSOR PICC RN at bedside placing PICC line. vitals stable. will continue to monitor.
--- NOTE | 2022-11-13 10:01 | NUR ---
CLAIMS ATTORNEY Urine specimen collected per md order, lab called for pickup.
--- NOTE | 2022-11-13 10:24 | NUR ---
MANAGER CCU Dr Allen at bedside assessing pt off sedation. software support technician at bedside doing stat chest xray for PICC line placement
[2022-11-13] MEDS ORDERED: NEUTRA PHOS 1 POWD.PACKET NG ONE (11:30)
[2022-11-13] MEDS: IPRATROPIUM NEB FS 0.5 MG/2.5 ML AMPUL.NEB NEB SCH ×4 (11:33→23:33)
[2022-11-13] MEDS: ALBUTEROL HALF STRENGTH 1.25 MG/3 ML VIAL.NEB NEB SCH ×4 (11:33→23:33)
[2022-11-13] MEDS: IV D5/ 0.9% NACL 1,000 ML IV PRN (11:36)
--- NOTE | 2022-11-13 12:17 | NUR ---
PRODUCTION SUPERINTENDENT Blue drip off. vitals stable. will continue to monitor.
[2022-11-13 12:29] LABS: BILIRUBIN,URINE NEGATIVE (NEGATIVE); COLOR,URINE YELLOW (YELLOW); LEUKOCYTE ESTERASE ,URINE 2+ (NEGATIVE); NITRITE, URINE NEGATIVE (NEGATIVE); PH,URINE 8.5 (5.0-8.0); PROTEIN,URINE TRACE mg/dl (NEGATIVE); UGLUCOSE NEGATIVE (NEGATIVE); UROBILINOGEN,URINE 0.2 EU/dL (0.2)
[2022-11-13] MEDS: PIPERACILLIN /TAZOBACTAM 3.375 G in IV D5W 50 ML IV SCH ×2 (12:33→17:21)
[2022-11-13 13:04] LABS: BACTERIA,URINE Few /HPF (None Seen); CALCIUM OXALATE CRYSTALS,UR Few /HPF (None Seen); RBC,URINE 0-2 /HPF (0-2); SQUAMOUS EPITHELIAL CELL,UR Few /HPF (None Seen)
[2022-11-13 13:05] LABS: URINE AMORPHOUS PHOSPHATES Moderate /HPF (None Seen)
--- NOTE | 2022-11-13 15:15 | NUR ---
SALES DEPARTMENT CLERK Pt bathed and cleaned. linen change done. skin check done, no new wounds noted. wound care done per protocol, lue wrapped for protection. pt tolerated well. vitals stable. safety measures in place. will continue to monitor.
[2022-11-13] MEDS: PROSOURCE / PROSTAT (PYXIS) 30 ML UDC GT SCH (17:20)
--- NOTE | 2022-11-13 18:59 | NUR ---
TENTERING MACHINE OFF BEARER Bedside report given to [facility] nurse Susannah DONALD. pt intubated, no sedation, pt arousable, opens eyes, tracks and moves bue but does not follow commands. all lines traced. all drips verified. safety measures in place pt clean and dry. no signs of acute distress at this time.
[2022-11-13] MEDS: ENOXAPARIN SODIUM 40 MG/0.4 ML DISP.SYRIN SQ SCH (20:10)
[2022-11-13] MEDS: QUETIAPINE FUMARATE 25 MG TABLET GT SCH (22:03)
[2022-11-14] VITALS (28 sets, daily range): BP systolic 85–137; BP diastolic 44–99
[2022-11-14] MEDS: ALBUTEROL HALF STRENGTH 1.25 MG/3 ML VIAL.NEB NEB SCH ×5 (04:02→19:59)
[2022-11-14] MEDS: IPRATROPIUM NEB FS 0.5 MG/2.5 ML AMPUL.NEB NEB SCH ×5 (04:02→19:59)
[2022-11-14] MEDS: JEVITY 1.2 CAL 1,000 ML BOTTLE GT SCH ×2 (05:39→20:49)
[2022-11-14 05:46] LABS: CALCIUM, SERUM 8.4 mg/dL (8.5-10.1); CREATININE 0.6 mg/dL (0.6-1.3); MAGNESIUM 2.1 mg/dL (1.8-2.4); PHOSPHORUS 2.3 mg/dL (2.5-4.9); POTASSIUM 3.6 mmol/L (3.5-5.1)
[2022-11-14 05:47] LABS: BASOPHILS % (AUTO) 0.2 % (0.0-2.0); EOSINOPHILS % (AUTO) 0.4 % (0.0-6.0); HEMATOCRIT 29 % (33-45); HEMOGLOBIN 9.4 g/dL (11.5-14.8); LYMPHOCYTES # (AUTO) 0.1 K/uL (0.8-4.8); LYMPHOCYTES % (AUTO) 2.5 % (20.0-44.0); MEAN CORPUSCULAR HGB CONC 32 g/dl (31.0-36.0); MEAN CORPUSCULAR VOLUME 93 fL (82-100); MONOCYTES % (AUTO) 0.8 % (2.0-12.0); NEUTROPHILS # (AUTO) 3.3 K/uL (1.8-8.9); NEUTROPHILS % (AUTO) 96.1 % (43.0-81.0); PLATELET COUNT (AUTO) 175 K/uL (150-450); RED BLOOD CELL COUNT(AUTO) 3.15 MIL/uL (4.0-5.2); WHITE BLOOD COUNT (AUTO) 3.5 K/uL (4.3-11.0)
[2022-11-14] MEDS: PIPERACILLIN /TAZOBACTAM 3.375 G in IV D5W 50 ML IV SCH ×5 (06:00→17:38)
[2022-11-14] MEDS: methylPREDNISolone SOD SUCC 40 MG/ML VIAL IV SCH ×4 (06:00→17:37)
--- NOTE | 2022-11-14 07:05 | NUR ---
JUNIOR COPYWRITER Bedside report taken from [facility] nurse Susannah DONALD. pt intubated, no sedation, pt awake, opens eyes, tracks, follows simple commands,PERRLA. Pt moves bue 2/5 and ble 1/5. pt intubated on fio2 30 % taras lung sounds coarse. spo2 99 %, pt NSR on monitor bue and ble pulses present. pt has peg getting jevity 60 ml/hr tolerating well, residuals 10 ml. bowel sounds present. pt has hightower intact and draining ginger color urine. wounds noted, see flowsheet. all lines traced. all drips verified. safety measures and restraints in place. no signs of acute distress at this time. will continue to monitor.
--- NOTE | 2022-11-14 08:00 | NUR ---
CERTIFIED PHARMACIST ASSISTANT Pt placed on pressure support. pt awake, alert , moves bue and ble and follows simple commands. pt tolerating well. vitals stable. will continue to monitor.
[2022-11-14] MEDS ORDERED: DC PROPOFOL WHEN EXTUBATED XX PRN (09:00)
[2022-11-14] MEDS: ASCORBIC ACID 500 MG TABLET GT SCH (09:08)
[2022-11-14] MEDS: ASPIRIN 81 MG TAB.CHEW GT SCH (09:08)
[2022-11-14] MEDS: PANTOPRAZOLE 40 MG/PACK PACK GT SCH (09:08)
[2022-11-14] MEDS: LEVOTHYROXINE SODIUM 125 MCG TABLET GT SCH (09:08)
[2022-11-14] MEDS: ACETAMINOPHEN 650 MG/20.3 ML UDC GT SCH (09:08)
[2022-11-14] MEDS: IV D5/ 0.9% NACL 1,000 ML IV PRN (09:08)
[2022-11-14] MEDS: PROSOURCE / PROSTAT (PYXIS) 30 ML UDC GT SCH ×3 (09:09→17:00)
[2022-11-14 09:28] LABS: ABG OXYGEN SATURATION 96.3 % (92.0-98.5); ABG PCO2 37.2 mmHg (35.0-45.0); ABG PH 7.513 (7.350-7.450); ABG PO2 81.6 mmHg (75.0-100.0); AaDO2 88.6 mmHg; O2Hb 96.3 % (94.0-97.0); SITE, ABG Right Radial
--- NOTE | 2022-11-14 09:35 | NUR ---
DIMENSIONAL INTEGRATION ENGINEER Pt extubated by Gutierrez DELACRUZ per Dr Allen order , pt placed on 5L n/c tolerating well. pt awake, alert, vitals stable. will continue to monitor.
--- NOTE | 2022-11-14 13:20 | NUR ---
RN PRACTITIONER O2 increased form 3 L to 5 L d/t pt desaturating spo2 88-90 %. currently spo2 92-94%. other vitals stable. will continue to monitor
[2022-11-14] MEDS ORDERED: NEUTRA PHOS 1 POWD.PACKET GT ONE (16:00)
--- NOTE | 2022-11-14 17:33 | NUR ---
ACTING PROFESSOR Pt bathed and cleaned. linen change done, KCI mattress applied. skin check done with Reynaldo DONALD, no new wounds noted. wound care and dressing changes done per protocol. pt tolerated well. vitals stable. safety measures in place. no signs of acute distress at this time. will continue to monitor.
--- NOTE | 2022-11-14 19:04 | NUR ---
SHAREPOINT DESIGNER DEVELOPER Bedside report given to [facility] nurse Soni DONALD. pt asleep easily arousable. pt on 5L n/c tolerating well spo2 100%. all lines traced. all drips verified. pt clean and dry. safety measures in place. no signs of acute distress at this time.
[2022-11-14] MEDS: QUETIAPINE FUMARATE 25 MG TABLET GT SCH (21:13)
[2022-11-14] MEDS: ENOXAPARIN SODIUM 40 MG/0.4 ML DISP.SYRIN SQ SCH (21:17)
--- NOTE | 2022-11-14 21:51 | NUR ---
ECONOMICS CONSULTANT. RECEIVED THE PT REST IN BED. AWAKE, ALERT. OPEN EYES, OXYGEN 5L VIA NASAL CANNULA. SAT 98%, NO ACUTE DISTRESS NOTED. PLATING AND POINT ASSEMBLY SUPERVISOR SHOWING S TACH. HOB ELEVATED. IV RT UPPER ARM PICC LINE. IVF D5NS 30 ML/H. HOB ELEVATED. G INTACT. JEVITY 60 ML/H. RESIDUAL 100ML/ WILL CONTINUE TO MONITOR RESIDUAL. FC PATENT. URINE DRAINING. LT HAND MEDS INFILTRATED. NOTIFIED INTERACTIVE MEDIA SPECIALIST DNP NOVEL. I RECEIVED WITH LT HAND DISCOLORATION AND SWELLING. WILL CONTINUE TO MONITOR
[2022-11-15] VITALS (51 sets, daily range): BP systolic 88–155; BP diastolic 52–98
[2022-11-15] MEDS: ALBUTEROL HALF STRENGTH 1.25 MG/3 ML VIAL.NEB NEB SCH ×7 (00:02→23:34)
[2022-11-15] MEDS: IPRATROPIUM NEB FS 0.5 MG/2.5 ML AMPUL.NEB NEB SCH ×7 (00:02→23:34)
[2022-11-15] MEDS: methylPREDNISolone SOD SUCC 40 MG/ML VIAL IV SCH ×4 (01:00→17:10)
[2022-11-15] MEDS: PIPERACILLIN /TAZOBACTAM 3.375 G in IV D5W 50 ML IV SCH ×4 (01:00→17:08)
[2022-11-15 04:47] LABS: HEMATOCRIT 28 % (33-45); HEMOGLOBIN 8.9 g/dL (11.5-14.8); LYMPHOCYTES # (AUTO) 0.1 K/uL (0.8-4.8); LYMPHOCYTES % (AUTO) 3.2 % (20.0-44.0); MEAN CORPUSCULAR HGB CONC 32 g/dl (31.0-36.0); MEAN CORPUSCULAR VOLUME 94 fL (82-100); MONOCYTES # (AUTO) 0.1 K/uL (0.1-1.30); MONOCYTES % (AUTO) 2.4 % (2.0-12.0); NEUTROPHILS # (AUTO) 4.2 K/uL (1.8-8.9); NEUTROPHILS % (AUTO) 94.4 % (43.0-81.0); PLATELET COUNT (AUTO) 162 K/uL (150-450); RED BLOOD CELL COUNT(AUTO) 2.96 MIL/uL (4.0-5.2); WHITE BLOOD COUNT (AUTO) 4.5 K/uL (4.3-11.0)
[2022-11-15 04:59] LABS: CALCIUM, SERUM 8.1 mg/dL (8.5-10.1); CREATININE 0.6 mg/dL (0.6-1.3); MAGNESIUM 2.1 mg/dL (1.8-2.4); PHOSPHORUS 3.5 mg/dL (2.5-4.9); POTASSIUM 3.8 mmol/L (3.5-5.1)
--- NOTE | 2022-11-15 06:31 | NUR ---
MANAGER OF OPERATIONS..AM CARE GIVEN. REMAINING SAME OXYGEN TOLERATED WELL. SAT 98%. NO ACUTE DISTRESS NOTED. TRANSPORTATION OFFICER SHOWING NSR. IV RT UPPER ARM PICC LINE, IVF D5NS 30 ML/H, FC PATENT. URINE DRAINING. GT FEEDING ON. HOB ELEVATED. TURN AND REPOSITION Q2H. WILL CONTINUE TO MONITOR VITALS.
--- NOTE | 2022-11-15 07:05 | NUR ---
FALL INTERNSHIP OPENING NOTE: RECEIVED PT. IN BED, AWAKE, AOX1, ABLE TO VERBALIZE SIMPLE NEEDS. NO COMPLAINTS OF PAIN AT THIS TIME. ON O2 VIA NC AT 3 L/MIN. NO S/S OF RESPIRATORY DISTRESS. LOADER OPERATOR/GROUND LEADER READS SINUS RHYTHM W/ BBB WITH HR OF 85 BPM AT THIS TIME. SACRAL REDNESS; LEFT ARM AND HAND REDNESS AND NON-PITTING EDEMA, NOTED WILL DO WOUND TREATMENT AND SKIN PRECAUTIONS ORDERED. PT. HAS G-TUBE, SITE AND DRESSING C/D/I WITH JEVITY RUNNING AT 60 ML/HR X 20 HRS. IV ACCESS ON MARGARITA PICC WITH D5 NS RUNNING AT 30 ML/HR. IV SITE DRESSING C/D/I WITH NO S/S OF INFILTRATION. SAFETY MEASURES IN PLACE: BED IN LOWEST AND LOCKED POSITION, HOB ELEVATED AT 30 DEGREES, BED ALARM ON, CALL LIGHT WITHIN REACH, SIDE RAILS UP X2. WILL TURN AND REPOSITION IN BED AT LEAST Q2H. WILL CONTINUE TO MONITOR PT. FOR ANY CHANGES.
[2022-11-15] MEDS: ACETAMINOPHEN 650 MG/20.3 ML UDC GT SCH (08:21)
[2022-11-15] MEDS: ASPIRIN 81 MG TAB.CHEW GT SCH (08:21)
[2022-11-15] MEDS: ASCORBIC ACID 500 MG TABLET GT SCH (08:21)
[2022-11-15] MEDS: LEVOTHYROXINE SODIUM 125 MCG TABLET GT SCH (08:21)
[2022-11-15] MEDS: PANTOPRAZOLE 40 MG/PACK PACK GT SCH (08:21)
[2022-11-15] MEDS: IV D5/ 0.9% NACL 1,000 ML IV PRN (08:38)
[2022-11-15] MEDS: PROSOURCE / PROSTAT (PYXIS) 30 ML UDC GT SCH ×3 (09:00→17:08)
[2022-11-15] MEDS ORDERED: AMIODARONE 150 MG in IV D5W 100 ML IV ONE (10:30)
[2022-11-15] MEDS: AMIODARONE 450 MG in IV D5W 241 ML IV PRN ×2 (10:47→19:12)
--- NOTE | 2022-11-15 11:00 | NUR ---
BORDER PATROL OFFICER NOTE: PT. NOTED TO BE TACHYCARDIC AT AROUND 0920 WITH HR OF 150'S TO 160'S BPM. EKG DONE AND SHOWED AFIB WITH RVR. PT. REMAINED AOX1, HER BASELINE, AND NO COMPLAINTS OF PAIN. NOTIFIED DR. BARKER AND ORDERED AMIODARONE BOLUS OF 150 MG FOLLOWED WITH AMIODARONE DRIP. ORDERS FOLLOWED. PT. HR IS NOW AT 120'S - 130'S BPM. OTHER VS REMAINS STABLE. WILL CONTINUE TO MONITOR PT.'S HEMODYNAMIC STATUS.
--- NOTE | 2022-11-15 19:05 | NUR ---
ALUMNI RELATIONS OFFICER CLOSING NOTE: PT. REMAINS IN BED, AWAKE, AOX1, ABLE TO VERBALIZE SIMPLE NEEDS. NO COMPLAINTS OF PAIN THROUGHOUT SHIFT. ON O2 VIA NC AT 5 L/MIN. NO S/S OF RESPIRATORY DISTRESS. SALES REP READS CONTROLLED AFIB AT THIS TIME WITH HR OF 88 BPM. AMIODARONE DRIP STILL RUNNING AT 16.6 ML/HR PER ORDER AND PROTOCOL. SKIN PRECAUTIONS DONE ORDERED.G-TUBE SITE AND DRESSING C/D/I WITH JEVITY RUNNING AT 60 ML/HR X 20 HRS. IV ACCESS ON MARGARITA PICC WITH D5 NS RUNNING AT 30 ML/HR. PARKER CATH DRAINED 375 ML OF CLEAR YELLOW URINE. 1 SMALL NORMAL BM THIS SHIFT. IV SITE DRESSING C/D/I WITH NO S/S OF INFILTRATION. SAFETY MEASURES MAINTAINED: BED IN LOWEST AND LOCKED POSITION, HOB ELEVATED AT 30 DEGREES, BED ALARM ON, CALL LIGHT WITHIN REACH, SIDE RAILS UP X2. TURNED AND REPOSITION IN BED AT LEAST Q2H. ENDORSED CONTINUITY OF CARE TO SERVICE WORKER HELPER RN VIDAL.
[2022-11-15] MEDS ORDERED: HEPARIN INFUSION/D5W 500 ML IV PRN (20:00)
[2022-11-15] MEDS: ENOXAPARIN SODIUM 40 MG/0.4 ML DISP.SYRIN SQ SCH (20:00)
--- NOTE | 2022-11-15 21:14 | NUR ---
PARTNER MARKETING INTERN. RECEIVED THE PT REST IN BED. AWAKE, CONFUSED. IV RT UPPER ARM MID LINE. AMIODARONE DRIP RUNNING. HOB ELEVATED. GT INTACT. SUPERVISOR METAL PLACING SHOWING NSR. LT HAND PURPLE COLOR. FC PATENT.WILL CONTINUE TO MONITOR VITALS.
[2022-11-15] MEDS: QUETIAPINE FUMARATE 25 MG TABLET GT SCH (21:56)
--- NOTE | 2022-11-15 22:08 | NUR ---
PT PLACED ON NOC BIPAP RN NOTIFIED.
[2022-11-15] MEDS: JEVITY 1.2 CAL 1,000 ML BOTTLE GT SCH (22:19)
--- NOTE | 2022-11-15 22:43 | NUR ---
lovenox not given. heparin drip on
[2022-11-16] VITALS (63 sets, daily range): BP systolic 99–155; BP diastolic 51–200
[2022-11-16] MEDS: PIPERACILLIN /TAZOBACTAM 3.375 G in IV D5W 50 ML IV SCH ×4 (00:51→17:11)
[2022-11-16] MEDS: methylPREDNISolone SOD SUCC 40 MG/ML VIAL IV SCH ×4 (00:51→17:11)
[2022-11-16] MEDS: IPRATROPIUM NEB FS 0.5 MG/2.5 ML AMPUL.NEB NEB SCH ×5 (03:41→21:30)
[2022-11-16] MEDS: ALBUTEROL HALF STRENGTH 1.25 MG/3 ML VIAL.NEB NEB SCH ×3 (03:41→11:30)
[2022-11-16 04:57] LABS: HEMATOCRIT 29 % (33-45); HEMOGLOBIN 9.3 g/dL (11.5-14.8); LYMPHOCYTES # (AUTO) 0.1 K/uL (0.8-4.8); MEAN CORPUSCULAR HGB CONC 32 g/dl (31.0-36.0); MEAN CORPUSCULAR VOLUME 94 fL (82-100); MONOCYTES # (AUTO) 0.2 K/uL (0.1-1.30); MONOCYTES % (AUTO) 3.2 % (2.0-12.0); NEUTROPHILS # (AUTO) 5.2 K/uL (1.8-8.9); NEUTROPHILS % (AUTO) 94.8 % (43.0-81.0); PLATELET COUNT (AUTO) 163 K/uL (150-450); WHITE BLOOD COUNT (AUTO) 5.5 K/uL (4.3-11.0)
[2022-11-16 05:08] LABS: CALCIUM, SERUM 8.1 mg/dL (8.5-10.1); CREATININE 0.6 mg/dL (0.6-1.3); MAGNESIUM 2.2 mg/dL (1.8-2.4); PHOSPHORUS 3.2 mg/dL (2.5-4.9); POTASSIUM 3.8 mmol/L (3.5-5.1)
--- NOTE | 2022-11-16 05:45 | NUR ---
PT TAKEN OFF NOC BIPAP AND PLACED ON 3L NC. RN NOTIFIED.
--- NOTE | 2022-11-16 06:21 | NUR ---
JUNIOR NET DEVELOPER. AM CARE GIVEN. REMAINING SAME OXYGEN 3L N/C. DURING NIGHT BIPAP ON. HOB ELEVATED GT FEEDING ON. FC PATENT, URINE DRAINING, TURN AND REPOSITION Q2H. WILL CONTINUE TO MONITOR VITALS.
--- NOTE | 2022-11-16 06:50 | NUR ---
BASKET PERSON. PTT 170. NO BLEEDING NOTED. REPEATED PTT, WILL MONITOR.
--- NOTE | 2022-11-16 08:00 | NUR ---
RN NOTES RECEIVED PATIENT ON O2-NC 99%, NO ACUTE RESPIRATORY DISTRESS, HR77 SR ON BEDSIDE MONITOR. PATIENT A/O X1, NEED REDIRECTION, FORGETFUL, NO RESIDUAL, RUNNING JEVITY @60ML/HR INTACT. IV ACCESS ON MARGARITA PICC LINE INTACT PATIENT ON AMIODARONE 0.5 MG/ML, AND HEPARIN 1450U, D5NS @30 ML/HR. ASSIST TURN AND REPOSTION Q 2 HR. PATIENT TOTAL CARE. SEEN PATIENT VIA WOUND PN NO NEW ORDERS, APPLIED MEPILEX. ADMINISTERED DUE MEDICATION VIA GT, WAITING PTT RESULT.
[2022-11-16] MEDS: LEVOTHYROXINE SODIUM 125 MCG TABLET GT SCH (09:18)
[2022-11-16] MEDS: ASCORBIC ACID 500 MG TABLET GT SCH (09:18)
[2022-11-16] MEDS: ACETAMINOPHEN 650 MG/20.3 ML UDC GT SCH (09:18)
[2022-11-16] MEDS: PANTOPRAZOLE 40 MG/PACK PACK GT SCH (09:18)
[2022-11-16] MEDS: ASPIRIN 81 MG TAB.CHEW GT SCH (09:18)
[2022-11-16] MEDS: PROSOURCE / PROSTAT (PYXIS) 30 ML UDC GT SCH ×3 (09:19→17:10)
--- NOTE | 2022-11-16 09:52 | NUR ---
rn notes ptt result is 170 held heparin infusion at this time. notified production repairer Dr Gant about ptt result, waiting to respond back resume medication administration dose .
[2022-11-16] MEDS: AMIODARONE HCL 200 MG TABLET PO SCH ×2 (10:28→17:10)
--- NOTE | 2022-11-16 11:10 | NUR ---
rn notes resumed heparin drip 1000u at this time per pharmacy dose, aviation neuropsychologist Dr Gant aware of.
[2022-11-16] MEDS: JEVITY 1.2 CAL 1,000 ML BOTTLE GT SCH (12:08)
[2022-11-16] MEDS: IV D5/ 0.9% NACL 1,000 ML IV PRN (14:00)
--- NOTE | 2022-11-16 15:32 | NUR ---
rn notes stop heparin drip at this time per Dr Hernandez order patient going to get Elaquis 2.5 mgt po per remington. will follow up. patient going to transfer to the tele unit waiting available bed.
--- NOTE | 2022-11-16 18:30 | NUR ---
RN NOTES PM CARE DONE, DUE MEDICATION ADMINISTERED, INFUSING D5NS @30ML/HR. PATIENT GOING TO TRANSFER TO THE TELE UNIT ROOM 118 BED 1. URINE OUTPUT WAS 400ML, BM X1. APPLIED RESTRAIN BECAUSE PATIENT TRYING TO REMOVE TUBING. PATIENT TOLERATING GT FEEDING WELL. ASSIST TURN AND REPOSTION Q2 HR. ENDORSED ONCOMING NURSE MAYE.
[2022-11-16] MEDS: ENOXAPARIN SODIUM 40 MG/0.4 ML DISP.SYRIN SQ SCH (20:00)
[2022-11-16] MEDS: QUETIAPINE FUMARATE 25 MG TABLET GT SCH (21:23)
--- NOTE | 2022-11-16 23:00 | NUR ---
PT PLACED ON NOC BIPAP , RN NOTIFIED. BREATHING TX GIVEN @0001
[2022-11-17] VITALS (10 sets, daily range): BP systolic 96–138; BP diastolic 48–74
[2022-11-17] MEDS: IPRATROPIUM NEB FS 0.5 MG/2.5 ML AMPUL.NEB NEB SCH ×7 (00:01→23:26)
[2022-11-17] MEDS: methylPREDNISolone SOD SUCC 40 MG/ML VIAL IV SCH ×5 (00:43→21:43)
[2022-11-17] MEDS: PIPERACILLIN /TAZOBACTAM 3.375 G in IV D5W 50 ML IV SCH ×4 (00:43→18:54)
--- NOTE | 2022-11-17 05:54 | NUR ---
PT TAKEN OFF NOC BIPAP AND PLACED ON 3L NC. RN NOTIFIED.
[2022-11-17] MEDS: LEVOTHYROXINE SODIUM 125 MCG TABLET GT SCH (07:16)
--- NOTE | 2022-11-17 07:30 | NUR ---
TD RN AM NOTES RECEIVED PATIENT, PATIENT A/O X1, NEED REDIRECTION, FORGETFUL,ON 3L O2 NASAL CANULA O2 SAT 90%, NO ACUTE RESPIRATORY DISTRESS, RESPIRATION UNLABORED, SR HR 89 ON MONITOR, NO SIGNS OF PAIN OR DISCOMFORT AT THIS TIME. MARGARITA PICC LINE WITH D5NS AT 30 ML/HR, SITE CLEAR. GTUBE ONGOING AT 60 ML PER HOUR, CHECKED FOR PLACEMENT, O RESIDUAL, PARKER CATH IN PLACE, DRAINING ADEQUATE AMOUNT YELLOW URINE VIA GRAVITY. BILAT SOFT WRIST RESTRAINT RELEASED AND CHECKED FOR CIRCULATION THEN Q 2 HOURS. SEE NURSING FLOWSHEET FOR SKIN ISSUES. WILL PERFORM PRESCRIBED WOUND CARE LATER. TURN/ REPOSITION Q 2 HOURS. OFF LOAD. HOB UP 30 DEG, SAFETY MEASURES IN PLACE, SR UPX 2, BED LOW LOCKED. CALL LIGHT WITHIN REACH,WILL CONTINUE TO MONITOR.
[2022-11-17 08:01] LABS: LYMPHOCYTES # (AUTO) 0.1 K/uL (0.8-4.8); LYMPHOCYTES % (AUTO) 1.9 % (20.0-44.0); MEAN CORPUSCULAR HGB CONC 33 g/dl (31.0-36.0); MEAN CORPUSCULAR VOLUME 93 fL (82-100); MONOCYTES # (AUTO) 0.2 K/uL (0.1-1.30); MONOCYTES % (AUTO) 3.8 % (2.0-12.0); NEUTROPHILS % (AUTO) 94.3 % (43.0-81.0); PLATELET COUNT (AUTO) 159 K/uL (150-450); RED BLOOD CELL COUNT(AUTO) 2.19 MIL/uL (4.0-5.2); WHITE BLOOD COUNT (AUTO) 6.4 K/uL (4.3-11.0)
[2022-11-17 08:17] LABS: CALCIUM, SERUM 7.8 mg/dL (8.5-10.1); CREATININE 0.7 mg/dL (0.6-1.3); MAGNESIUM 2.1 mg/dL (1.8-2.4); PHOSPHORUS 2.7 mg/dL (2.5-4.9)
[2022-11-17 08:22] LABS: HEMATOCRIT 20 % (33-45); HEMOGLOBIN 6.6 g/dL (11.5-14.8)
--- NOTE | 2022-11-17 09:05 | NUR ---
RN NOTES DR. HORACE REID NOTIFIED RE HEMOGLOBIN OF 6.6. ORDERED A REPEAT TEST. CARRIED OUT
--- NOTE | 2022-11-17 09:30 | NUR ---
RN NOTES DUE MEDS GIVEN
--- NOTE | 2022-11-17 10:17 | NUR ---
RN NOTES DR. HORACE REID NOTIFIED REPEAT HGB 6.8. NEW ORDER TO GIVE 1 UNIT PRBC
[2022-11-17 10:19] LABS: HEMOGLOBIN 6.8 g/dL (11.5-14.8)
[2022-11-17] MEDS: ACETAMINOPHEN 650 MG/20.3 ML UDC GT SCH (10:23)
[2022-11-17] MEDS: ASPIRIN 81 MG TAB.CHEW GT SCH (10:23)
[2022-11-17] MEDS: PROSOURCE / PROSTAT (PYXIS) 30 ML UDC GT SCH ×3 (10:23→17:13)
[2022-11-17] MEDS: AMIODARONE HCL 200 MG TABLET PO SCH ×2 (10:24→17:12)
[2022-11-17] MEDS: ASCORBIC ACID 500 MG TABLET GT SCH (10:25)
[2022-11-17] MEDS: PANTOPRAZOLE 40 MG/PACK PACK GT SCH (10:27)
--- NOTE | 2022-11-17 13:52 | NUR ---
OPENING RN NOTES: RECEIVED AWAKE ON BED, A/OX1, WITH SOFT RESTRAINT ON BILATERAL HANDS, TELE MONITOR SR-80'S, NPO, WITH G-TUBE FEEDING GLUCERNA AT 55 ML/HR CONTINUOS. PARKER CATH DRAINING INTO YELLOWISH COLORED URINE AT 250 CC LEVEL,ORIENTED TO UNIT AND STAFF, NO SIGN OF RESPIRATORY DISTRESS, NON LABORED BREATHING, SAFETY AND ASPIRATION PRECAUTION OBSERVED. BED LOCKED AND IN LOWEST POSITION.
--- NOTE | 2022-11-17 15:00 | NUR ---
RN NOTES CURRENT GT FEEDING HOLD FOR NOW. FOR POSSIBLE SCOPING BY DR. GARCIA TOMORROW.
[2022-11-17 15:40] LABS: LYMPHOCYTES % (MANUAL) 4 % (16-48); MONOCYTES % (MANUAL) 5 % (0-11.0); NEUTROPHILS % (MANUAL) 91 (42-76)
[2022-11-17] MEDS: PANTOPRAZOLE 40 MG VIAL IV SCH (17:12)
[2022-11-17 18:35] LABS: HEMOGLOBIN 6.6 g/dL (11.5-14.8)
--- NOTE | 2022-11-17 19:22 | NUR ---
RN CLOSING NOTE PT NPO AFTER 16:00, FOR POSSIBLE GI SCOOP SCHEDULED FOR TOMORROW. SAFETY MEASURES MAINTAINED, BED IN LOWEST POSITION. ENDORSE TO THE FEE CLERK
[2022-11-17] MEDS: QUETIAPINE FUMARATE 25 MG TABLET GT SCH (21:36)
[2022-11-18] VITALS (10 sets, daily range): BP systolic 112–149; BP diastolic 66–89
--- NOTE | 2022-11-18 01:07 | NUR ---
Patient is receiving blood transfusion at this time.
--- NOTE | 2022-11-18 03:00 | NUR ---
Patient tolerated blood transfusion well no adverse reactions vital signs stable. See vital signs transfusion flow sheet.
[2022-11-18] MEDS: IPRATROPIUM NEB FS 0.5 MG/2.5 ML AMPUL.NEB NEB SCH ×5 (03:57→20:08)
[2022-11-18] MEDS: PIPERACILLIN /TAZOBACTAM 3.375 G in IV D5W 50 ML IV SCH ×6 (06:56→23:24)
--- NOTE | 2022-11-18 07:08 | NUR ---
Patient has uncontrolled large amount of loose stool dark in color normal smell. OKSANA Covington made aware received order for rectal tube insertion.
--- NOTE | 2022-11-18 07:30 | NUR ---
MAREN DONALD AM NOTES RECEIVED PATIENT, PATIENT A/O X1, NEED CONSTANT COACHINGS, FORGETFUL,ON 3L O2 NASAL CANULA O2 SAT 100%, NO ACUTE RESPIRATORY DISTRESS, RESPIRATION UNLABORED, SR HR 71 ON MONITOR, NO SIGNS OF PAIN OR DISCOMFORT AT THIS TIME. MARGARITA PICC LINE WITH D5NS AT 30 ML/HR, SITE CLEAR. ON GTF AT 60 ML PER HOUR, CLAMPED FOR NOW FOR POSSIBLE PEG. CHECKED FOR PLACEMENT, O RESIDUAL, PARKER CATH IN PLACE, DRAINING ADEQUATE AMOUNT YELLOW URINE VIA GRAVITY. BILAT SOFT WRIST RESTRAINT RELEASED AND CHECKED FOR CIRCULATION THEN Q 2 HOURS. SEE NURSING FLOWSHEET FOR SKIN ISSUES. WILL PERFORM PRESCRIBED WOUND CARE LATER. TURN/ REPOSITION Q 2 HOURS. OFF LOAD. HOB UP 30 DEG, SAFETY MEASURES IN PLACE, SR UPX 2, BED LOW LOCKED. CALL LIGHT WITHIN REACH,WILL CONTINUE TO MONITOR. Addendum: 11/18/22 at [address] RN ADDENDUM: RECTAL TUBE IN PLACE WITH REDDISH DARK BROWN STOOL.
--- NOTE | 2022-11-18 07:36 | NUR ---
RN OPENING NOTES PATIENT IN BED, SUPINE POSITION, IV SITE RIGHT AC FLUSHES WELL, SOFT RESTRAINS IN PLACE. PT NPO FOR POSSIBLE ENDOSCOPY TODAY. BED IN LOWEST POSITION, SAFETY MEASURES MAINTAINED.
[2022-11-18 07:54] LABS: BASOPHILS % (AUTO) 0.1 % (0.0-2.0); HEMATOCRIT 26 % (33-45); HEMOGLOBIN 8.7 g/dL (11.5-14.8); LYMPHOCYTES # (AUTO) 0.1 K/uL (0.8-4.8); LYMPHOCYTES % (AUTO) 1.7 % (20.0-44.0); MEAN CORPUSCULAR HGB CONC 33 g/dl (31.0-36.0); MEAN CORPUSCULAR VOLUME 92 fL (82-100); MONOCYTES # (AUTO) 0.1 K/uL (0.1-1.30); MONOCYTES % (AUTO) 1.7 % (2.0-12.0); NEUTROPHILS # (AUTO) 4.5 K/uL (1.8-8.9); NEUTROPHILS % (AUTO) 96.5 % (43.0-81.0); PLATELET COUNT (AUTO) 152 K/uL (150-450); RED BLOOD CELL COUNT(AUTO) 2.85 MIL/uL (4.0-5.2); WHITE BLOOD COUNT (AUTO) 4.7 K/uL (4.3-11.0)
[2022-11-18 08:22] LABS: CALCIUM, SERUM 8.2 mg/dL (8.5-10.1); CARBON DIOXIDE 35 mmol/L (21-32); CHLORIDE 107 mmol/L (98-107); CREATININE 0.5 mg/dL (0.6-1.3); GLUCOSE 104 mg/dL (74-106); MAGNESIUM 2.4 mg/dL (1.8-2.4); PHOSPHORUS 3.2 mg/dL (2.5-4.9); POTASSIUM 3.6 mmol/L (3.5-5.1); SODIUM SERUM 143 mmol/L (136-145); UREA NITROGEN, BLOOD 51 mg/dL (7-18)
[2022-11-18] MEDS: LEVOTHYROXINE SODIUM 125 MCG TABLET GT SCH (08:30)
--- NOTE | 2022-11-18 08:53 | NUR ---
RN NOTES INFORMED DR. HORACE REID ABOUT NOTHING SCHEDULED FOR SURGERY TODAY. PT STILL HAVING REDDISH DARK BROWN STOOL ON RECTAL TUBE. PER MD, KEEP ON NPO FOR NOW. HGB 8.7 AFTER 1 UNIT PRBC
--- NOTE | 2022-11-18 09:09 | NUR ---
RN NOTES PER HORACE REID, SHE SPKE WITH DR. GARCIA AND WILL DO EGD TOMORROW AM. RESUME FEEDING FOR NOW THEN NPO POST MIDNIGHT.
[2022-11-18] MEDS: ASCORBIC ACID 500 MG TABLET GT SCH (09:21)
[2022-11-18] MEDS: ACETAMINOPHEN 650 MG/20.3 ML UDC GT SCH (09:22)
[2022-11-18] MEDS: AMIODARONE HCL 200 MG TABLET PO SCH ×2 (09:22→17:24)
[2022-11-18] MEDS: PROSOURCE / PROSTAT (PYXIS) 30 ML UDC GT SCH ×3 (09:24→17:24)
[2022-11-18] MEDS: PANTOPRAZOLE 40 MG VIAL IV SCH ×2 (09:28→17:23)
[2022-11-18] MEDS: methylPREDNISolone SOD SUCC 40 MG/ML VIAL IV SCH ×2 (09:29→20:14)
--- NOTE | 2022-11-18 09:30 | NUR ---
RN NOTES DUE MEDS GIVEN
--- NOTE | 2022-11-18 19:22 | NUR ---
RN CLOSING NOT PT AWAKE, SUPINE POSITION, IV SITE FLUSHES WELL, GTUBE IRRIGATED. ORDER NPO AFTER MIDNIGHT. SAFETY MEASURES MAINTAINED, BED IN LOWEST POSITION.
--- NOTE | 2022-11-18 19:30 | NUR ---
RN OPENING NOTE RECEIVED PT IN BED, AWAKE, A/O X 1-2, ABLE TO VERBALIZE NEEDS WITH PERIODS OF CONFUSION. CURRENTLY ON 3L O2 VIA NC, TOLERATING WELL WITH O2 SAT @ 99%. TELE MONITOR READS SR WITH HR IN THE 70s. NO S/SX OF ACUTE RESPI DISTRESS NOTED AT THIS TIME. NO SOB, NO PAIN. IV ACCESS NOTED ON MARGARITA PICC LINE, PATENT AND INTACT, RUNNING D5NS @ 30 CC/HR. BILATERAL SOFT WRIST RESTRAINTS NOTED. NO CIRCULATION ISSUES UPON CHECKING. GT IN PLACE RUNNING JEVITY 1.2 @ 60 CC/HR. PT WILL BE NPO BY MIDNIGHT. PARKER CATH IN PLACE, DRAINING URINE BY GRAVITY. ALL SAFETY MEASURES IN PLACE: BED LOCKED IN LOW POSITION, BED ALARM ON. SR UP X 3. CALL LIGHT WITHIN REACH. WILL CONTINUE TO MONITOR.
[2022-11-18] MEDS: QUETIAPINE FUMARATE 25 MG TABLET GT SCH (21:02)
[2022-11-19] VITALS (7 sets, daily range): BP systolic 104–163; BP diastolic 53–95
[2022-11-19] MEDS: IPRATROPIUM NEB FS 0.5 MG/2.5 ML AMPUL.NEB NEB SCH ×7 (00:09→23:40)
[2022-11-19] MEDS: IV D5/ 0.9% NACL 1,000 ML IV PRN (02:03)
[2022-11-19] MEDS: PIPERACILLIN /TAZOBACTAM 3.375 G in IV D5W 50 ML IV SCH (05:09)
--- NOTE | 2022-11-19 06:11 | NUR ---
RN NOTE PT REMAINED STABLE T/O THE NIGHT. ALL DUE MEDS GIVEN. NEEDS ATTENDED TO. PM CARE DONE. TURNED AND REPOSITIONED. NPO SINCE MIDNIGHT. PT SCHEDULED FOR EGD TODAY WITH DR. GARCIA. WILL ENDORSE TO AM SHIFT NURSE FOR MAYE.
[2022-11-19 07:21] LABS: HEMATOCRIT 26 % (33-45); HEMOGLOBIN 8.5 g/dL (11.5-14.8); LYMPHOCYTES # (AUTO) 0.1 K/uL (0.8-4.8); LYMPHOCYTES % (AUTO) 2.2 % (20.0-44.0); MEAN CORPUSCULAR HGB CONC 33 g/dl (31.0-36.0); MEAN CORPUSCULAR VOLUME 94 fL (82-100); MONOCYTES # (AUTO) 0.2 K/uL (0.1-1.30); MONOCYTES % (AUTO) 2.9 % (2.0-12.0); NEUTROPHILS # (AUTO) 5.9 K/uL (1.8-8.9); NEUTROPHILS % (AUTO) 94.9 % (43.0-81.0); PLATELET COUNT (AUTO) 166 K/uL (150-450); WHITE BLOOD COUNT (AUTO) 6.2 K/uL (4.3-11.0)
--- NOTE | 2022-11-19 07:25 | NUR ---
CIRCULAR RIPSAW OPERATOR ELIDIA NOTES: RECEIVED PATIENT IN BED, AWAKE, ALERT, ORIENTED X 1 WITH PERIODS OF CONFUSION. NO SOB NOTED, BREATHING EVEN AND UNLABORED. ON OXYGEN @ 2L/MIN VIA N/C WITH OXYGEN SATURATION OF 96%. PATIENT IS ON SR PER TELE MONITOR WITH HR OF 76. PATIENT HAS PICC LINE ON RIGHT UPPER ARM, INTACT, WITH D5 NS RUNNING @ 30 ML/HR, IV SITE PATENT, NO S/S INFILTRATION NOTED, FLUSHES WELL. G-TUBE FEEDING ON HOLD AND PATIENT KEPT NPO DUE TO PROCEDURE OF EGD SCHEDULED TODAY. PARKER CATHETER INTACT, DRAINING WITH YELLOW COLORED URINE, FLEXISEAL INTACT WITH SOFT DARK TARRY STOOL . ALL SAFETY MEASURES IN PLACE. BED LOCKED AND IN LOWEST POSITION. SERGE BED ALARM ON.WILL CONTINUE TO MONITOR PATIENT THROUGHOUT SHIFT.
[2022-11-19] MEDS: LEVOTHYROXINE SODIUM 125 MCG TABLET GT SCH ×2 (07:30→07:57)
[2022-11-19 07:36] LABS: CALCIUM, SERUM 8.6 mg/dL (8.5-10.1); CREATININE 0.6 mg/dL (0.6-1.3); MAGNESIUM 2.5 mg/dL (1.8-2.4); PHOSPHORUS 3.7 mg/dL (2.5-4.9); POTASSIUM 3.8 mmol/L (3.5-5.1)
[2022-11-19] MEDS: PROSOURCE / PROSTAT (PYXIS) 30 ML UDC GT SCH ×3 (08:35→17:05)
[2022-11-19] MEDS: AMIODARONE HCL 200 MG TABLET PO SCH ×2 (08:35→17:05)
[2022-11-19] MEDS: ASCORBIC ACID 500 MG TABLET GT SCH (08:35)
[2022-11-19] MEDS: ACETAMINOPHEN 650 MG/20.3 ML UDC GT SCH (08:35)
[2022-11-19] MEDS: PANTOPRAZOLE 40 MG VIAL IV SCH ×2 (09:03→16:51)
[2022-11-19] MEDS: methylPREDNISolone SOD SUCC 40 MG/ML VIAL IV SCH (09:04)
--- NOTE | 2022-11-19 11:30 | NUR ---
PATIENT WAS PICKED UP TO HAVE HER ENDOSCOPY DONE. PATIENT LEFT VIA GURNEY IN NO ACUTE DISTRESS.
[2022-11-19 11:37] LABS: BASOPHILS % (AUTO) 0.1 % (0.0-2.0); HEMATOCRIT 26 % (33-45); HEMOGLOBIN 8.5 g/dL (11.5-14.8); LYMPHOCYTES # (AUTO) 0.1 K/uL (0.8-4.8); LYMPHOCYTES % (AUTO) 1.9 % (20.0-44.0); MEAN CORPUSCULAR HGB CONC 33 g/dl (31.0-36.0); MEAN CORPUSCULAR VOLUME 93 fL (82-100); MONOCYTES # (AUTO) 0.2 K/uL (0.1-1.30); MONOCYTES % (AUTO) 2.5 % (2.0-12.0); NEUTROPHILS # (AUTO) 6.4 K/uL (1.8-8.9); NEUTROPHILS % (AUTO) 95.5 % (43.0-81.0); PLATELET COUNT (AUTO) 175 K/uL (150-450); RED BLOOD CELL COUNT(AUTO) 2.78 MIL/uL (4.0-5.2); WHITE BLOOD COUNT (AUTO) 6.7 K/uL (4.3-11.0)
--- NOTE | 2022-11-19 13:04 | NUR ---
PATIENT'S BACK AFTER THE PROCEDURE AND WAS NOTED TO HAVE GASTRITIS PER FINDINGS ON THE ENDOSCOPY. DR QUACH RESUMED G-TUBE FEEDING ORDERED. PATIENT WAS PLACED BACK ON TELE MONITOR WITH SR, HR OF 76. JEVITY @ 60 ML/HR WAS STARTED. G-TUBE IN PLACE, NO RESIDUAL AND FLUSHES WELL. RESTARTED D5 NS @ 30 ML/HR VIA PICC LINE ON RIGHT UPPER ARM. ALL SAFETY MEASURES IMPLEMENTED.
[2022-11-19] MEDS: PIPERACILLIN /TAZOBACTAM 3.375 G in IV D5W 100 ML IV SCH ×2 (13:26→21:02)
--- NOTE | 2022-11-19 18:30 | NUR ---
[facility] CLOSING NOTES: PATIENT IN BED, AWAKE,. ALERT, ORIENTED X 1. NO SOB NOTED THROUGHOUT SHIFT. ON OXYGEN @ 2L/MIN VIA N/C WITH OXYGEN SATURATION OF 97%. ON SR WITH HR OF 77 ON TELE MONITOR. IV SITE ON RIGHT UPPER ARM PICC LINE INTACT, RUNNING WITH D5 NS @ 30 ML/HR, IV SITE PATIENT AND NO S/S INFILTRATION NOTED. ON JEVITY FEEDING @ 60 ML/HR, WITH 30 ML OF RESIDUAL, G-TUBE SITE PATENT, IN PLACE AND FLUSHES WELL. PARKER CATHETER INTACT AND EMPTIED 800 ML OF YELLOW COLORED URINE, NO HEMATURIA AND NO SEDIMENTATION NOTED. FLEXISEAL INTACT AND TOOK OUT 200 ML OF LIQUID BLACK TARRY STOOL. ALL NEEDS MET AND ANTICIPATED. NO C/O PAIN OR DISCOMFORT AT THIS TIME. ALL SAFETY MEASURES IMPLEMENTED. BED LOCKED AND IN LOWEST POSITION WITH CALL LIGHT WITHIN REACH. WILL ENDORSE TO INCOMING NURSE FOR CONTINUITY OF CARE.
[2022-11-19] MEDS: IV D5W 1,000 ML IV PRN (19:10)
--- NOTE | 2022-11-19 19:53 | NUR ---
RN OPENING NOTE RECEIVED PT IN BED, AWAKE, A/O X 1-2, ABLE TO VERBALIZE NEEDS WITH PERIODS OF CONFUSION. CURRENTLY ON 2L O2 VIA NC, TOLERATING WELL WITH O2 SAT @ 97%. TELE MONITOR READS SR WITH HR IN THE 70s. NO S/SX OF ACUTE RESPI DISTRESS NOTED AT THIS TIME. NO SOB, NO PAIN. IV ACCESS NOTED ON MARGARITA PICC LINE, PATENT AND INTACT, RUNNING D5W @ 50 CC/HR. BILATERAL SOFT WRIST RESTRAINTS NOTED. NO CIRCULATION ISSUES UPON CHECKING. GT IN PLACE RUNNING JEVITY 1.2 @ 60 CC/HR. PARKER CATH IN PLACE, DRAINING URINE BY GRAVITY. FLEXI SEAL NOTED TOO. ALL SAFETY MEASURES IN PLACE: BED LOCKED IN LOW POSITION, BED ALARM ON. SR UP X 3. CALL LIGHT WITHIN REACH. WILL CONTINUE TO MONITOR.
[2022-11-19] MEDS: QUETIAPINE FUMARATE 25 MG TABLET GT SCH (21:17)
[2022-11-20] VITALS: BP 116/66
--- NOTE | 2022-11-20 02:30 | NUR ---
RN NOTE STOPPED GTF @0230, TO RESUME @ [id number] ORDERED. PT ON GTF X 20 HRS.
[2022-11-20] MEDS: IPRATROPIUM NEB FS 0.5 MG/2.5 ML AMPUL.NEB NEB SCH ×6 (02:47→23:50)
[2022-11-20 04:00] VITALS: BP 139/81
[2022-11-20] MEDS: PIPERACILLIN /TAZOBACTAM 3.375 G in IV D5W 100 ML IV SCH ×3 (04:31→21:33)
--- NOTE | 2022-11-20 06:06 | NUR ---
RN NOTE PT REMAINED STABLE T/O THE NIGHT. SR ON TELE MONITOR. ALL DUE MEDS GIVEN. NEEDS ATTENDED TO. TURNED AND REPOSITIONED. WILL ENDORSE TO AM SHIFT NURSE FOR MAYE.
[2022-11-20 06:07] LABS: HEMATOCRIT 27 % (33-45); HEMOGLOBIN 8.5 g/dL (11.5-14.8); LYMPHOCYTES # (AUTO) 0.3 K/uL (0.8-4.8); LYMPHOCYTES % (AUTO) 3.5 % (20.0-44.0); MEAN CORPUSCULAR HGB CONC 32 g/dl (31.0-36.0); MEAN CORPUSCULAR VOLUME 95 fL (82-100); MONOCYTES # (AUTO) 0.5 K/uL (0.1-1.30); MONOCYTES % (AUTO) 6.4 % (2.0-12.0); NEUTROPHILS # (AUTO) 7.1 K/uL (1.8-8.9); NEUTROPHILS % (AUTO) 90.1 % (43.0-81.0); PLATELET COUNT (AUTO) 197 K/uL (150-450); RED BLOOD CELL COUNT(AUTO) 2.78 MIL/uL (4.0-5.2); WHITE BLOOD COUNT (AUTO) 7.8 K/uL (4.3-11.0)
[2022-11-20 06:43] LABS: CALCIUM, SERUM 8.4 mg/dL (8.5-10.1); CARBON DIOXIDE 37 mmol/L (21-32); CHLORIDE 109 mmol/L (98-107); CREATININE 0.6 mg/dL (0.6-1.3); GLUCOSE 118 mg/dL (74-106); MAGNESIUM 2.4 mg/dL (1.8-2.4); PHOSPHORUS 2.9 mg/dL (2.5-4.9); POTASSIUM 3.6 mmol/L (3.5-5.1); SODIUM SERUM 147 mmol/L (136-145); UREA NITROGEN, BLOOD 32 mg/dL (7-18)
--- NOTE | 2022-11-20 07:41 | NUR ---
RN OPENING NOTE RECEIVED PT IN BED, AWAKE, A/O X 1-2, ABLE TO VERBALIZE NEEDS WITH PERIODS OF CONFUSION. CURRENTLY ON BYPAP SETTING AT THIS TIME , TOLERATING WELL. TELE MONITOR READS SR WITH HR IN THE 70s. NO S/SX OF ACUTE RESPI DISTRESS NOTED AT THIS TIME. NO SOB, NO PAIN. IV ACCESS NOTED ON MARGARITA PICC LINE, PATENT AND INTACT, RUNNING D5W @ 50 CC/HR. BILATERAL SOFT WRIST RESTRAINTS NOTED. NO CIRCULATION ISSUES UPON CHECKING.WITH G TUBE FEEDING ORDERED ,KEEP HOB ELEVATED ALL TIME, BED IN LOWEST AND LOCKED POSITION, WILL CONT TO MONITOR
[2022-11-20] MEDS: LEVOTHYROXINE SODIUM 125 MCG TABLET GT SCH (07:58)
[2022-11-20 08:00] VITALS: BP 146/70
[2022-11-20] MEDS: ASCORBIC ACID 500 MG TABLET GT SCH (08:10)
[2022-11-20] MEDS: ACETAMINOPHEN 650 MG/20.3 ML UDC GT SCH (08:11)
[2022-11-20] MEDS: methylPREDNISolone SOD SUCC 40 MG/ML VIAL IV SCH (08:11)
[2022-11-20] MEDS: PANTOPRAZOLE 40 MG VIAL IV SCH ×2 (08:11→16:33)
[2022-11-20] MEDS: AMIODARONE HCL 200 MG TABLET PO SCH ×2 (08:12→16:32)
[2022-11-20] MEDS: PROSOURCE / PROSTAT (PYXIS) 30 ML UDC GT SCH ×3 (08:12→16:33)
[2022-11-20 10:04] LABS: ABG BASE EXCESS 8.1 mmol/L; ABG PCO2 49.1 mmHg (35.0-45.0); ABG PH 7.447 (7.350-7.450); ABG PO2 117.4 mmHg (75.0-100.0); COHb 0.3 % (0.5-1.5); MetHb 0.1 % (0.0-1.5); O2Hb 97.6 % (94.0-97.0); SITE, ABG Right Radial; VENT MODE, BG 2L NC
[2022-11-20] MEDS: METRONIDAZOLE 500MG/ NS 100ML 500 MG in PREMIX 1 EA IV SCH ×2 (10:07→16:32)
--- NOTE | 2022-11-20 10:25 | NUR ---
AREA OPERATIONS DIRECTOR NOTE DR ALBERTO AT BEDSIDE OK TO DO [facility] CALLED , WILL Suzi Addendum: 11/20/22 at 1028 by CEE PINEDA RN CARLOS REMOVED ,PLACED ON 2L NC, SATURATION 95% AT THIS TIME, KATELYN Archer
[2022-11-20] MEDS ORDERED: ALBUTEROL FS 2.5 MG/3 ML VIAL.NEB NEB PRN (11:30)
[2022-11-20] MEDS: JEVITY 1.2 CAL 1,000 ML BOTTLE GT SCH (11:40)
[2022-11-20 13:39] VITALS: BP 79/70
--- NOTE | 2022-11-20 15:08 | NUR ---
telephone sex worker note keep clean dry ,per rt placed on ra, saturation 90% at this time, keep clean dry , turn reposition , call light within reach
[2022-11-20 16:21] VITALS: BP 129/54
--- NOTE | 2022-11-20 18:28 | NUR ---
ROLL GRINDER OPERATOR NOTE MANUEL IN BED ALERT, AWAKE, ON RA, SATURATION 92% AT THIS TIME, ON TELE MONITOR SR, WITH PARKER CATH TO GRAVITY WITH YELLOW COLOR URINE , SERGE WITH RECTAL FLOSEAL TUBE IN PLACE WITH DARK BROWN COLOR STOOL LIQUID NOTED, ON G TUBE FEEDING ORDERED, KEEP HOB ELEVATED AT ALL TIME, RT UPPER ARM PICC LINE IN PLACE , ON IVF ORDERED, BED IN LOWEST AND LOCKED POSITION , CALL LIGHT WITHIN REACH, SAFETY MEASURE IMPLEMENTED ,
[2022-11-20 20:00] VITALS: BP 134/59
--- NOTE | 2022-11-20 20:00 | NUR ---
ESTATE PLANNER NOTE PT IN BED AWAKE. A/O X 1-2, CONFUSED AT TIMES. NO SOB, NO DISTRESS OR DISCOMFORT NOTED. DENIES PAIN. ON TELE SR WITH PVC HR 83. RECTAL TUBE AND F/C INTACT DRAINING APPROPRIATELY. PT WITH BILATERAL SOFT WRIST RESTRAINTS ON. GTF JEVITY INFUSING AT 60 ML/HR, 0 ML RESIDUAL NOTED. MARGARITA PICC LINE D5W AT 50 ML/HR, NO S/S OF INFILTRATION NOTED. ALL NEEDS ATTENDED. KEPT HER DRY AND CLEAN. VSS. REPOSITION HER FOR COMFORT AND SKIN MANAGEMENT. CONTINUE TO MONITOR HER.
[2022-11-20] MEDS: QUETIAPINE FUMARATE 25 MG TABLET GT SCH (21:34)
[2022-11-21] VITALS: BP 131/70
[2022-11-21] MEDS: METRONIDAZOLE 500MG/ NS 100ML 500 MG in PREMIX 1 EA IV SCH ×3 (01:28→17:25)
[2022-11-21] MEDS: IPRATROPIUM NEB FS 0.5 MG/2.5 ML AMPUL.NEB NEB SCH ×6 (03:35→22:55)
[2022-11-21 04:00] VITALS: BP 116/69
[2022-11-21] MEDS: PIPERACILLIN /TAZOBACTAM 3.375 G in IV D5W 100 ML IV SCH ×3 (04:50→21:20)
--- NOTE | 2022-11-21 07:46 | NUR ---
TELE OPENING NOTE PT IN BED SLEEPING, BIPAP ON, NO SOB, NO DISTRESS OR DISCOMFORT NOTED. DENIES PAIN. ON TELE SR WITH PVC 79. RECTAL TUBE AND F/C INTACT DRAINING APPROPRIATELY. PT WITH BILATERAL SOFT WRIST RESTRAINTS ON. GTF JEVITY TURN OFF AT 0700, WILL TURN BACK ON 1100H 0 ML RESIDUAL NOTED. MARGARITA PICC LINE D5W AT 50 ML/HR, INTACT, NO S/S OF INFILTRATION NOTED. SAFETY MEASURES IN PLACED. CALL LIGHT WITHIN REACH. PLAN OF CARE CONTINUE.
[2022-11-21 08:00] VITALS: BP 123/70
[2022-11-21 08:11] LABS: EOSINOPHILS % (AUTO) 0.2 % (0.0-6.0); HEMATOCRIT 27 % (33-45); HEMOGLOBIN 8.5 g/dL (11.5-14.8); LYMPHOCYTES # (AUTO) 0.3 K/uL (0.8-4.8); LYMPHOCYTES % (AUTO) 3.4 % (20.0-44.0); MEAN CORPUSCULAR HGB CONC 32 g/dl (31.0-36.0); MEAN CORPUSCULAR VOLUME 96 fL (82-100); MONOCYTES # (AUTO) 0.5 K/uL (0.1-1.30); MONOCYTES % (AUTO) 6.1 % (2.0-12.0); NEUTROPHILS # (AUTO) 8.1 K/uL (1.8-8.9); NEUTROPHILS % (AUTO) 90.3 % (43.0-81.0); PLATELET COUNT (AUTO) 193 K/uL (150-450); RED BLOOD CELL COUNT(AUTO) 2.75 MIL/uL (4.0-5.2)
[2022-11-21 08:23] LABS: CALCIUM, SERUM 8.1 mg/dL (8.5-10.1); CARBON DIOXIDE 31 mmol/L (21-32); CHLORIDE 106 mmol/L (98-107); CREATININE 0.5 mg/dL (0.6-1.3); GLUCOSE 111 mg/dL (74-106); MAGNESIUM 2.4 mg/dL (1.8-2.4); POTASSIUM 3.7 mmol/L (3.5-5.1); SODIUM SERUM 143 mmol/L (136-145); UREA NITROGEN, BLOOD 26 mg/dL (7-18)
[2022-11-21] MEDS: methylPREDNISolone SOD SUCC 40 MG/ML VIAL IV SCH (08:46)
[2022-11-21] MEDS: ASCORBIC ACID 500 MG TABLET GT SCH (08:46)
[2022-11-21] MEDS: AMIODARONE HCL 200 MG TABLET PO SCH ×2 (08:47→17:26)
[2022-11-21] MEDS: PANTOPRAZOLE 40 MG/PACK PACK GT SCH ×2 (08:47→17:25)
[2022-11-21] MEDS: ACETAMINOPHEN 650 MG/20.3 ML UDC GT SCH (08:47)
[2022-11-21] MEDS: LEVOTHYROXINE SODIUM 125 MCG TABLET GT SCH (08:48)
[2022-11-21] MEDS: PROSOURCE / PROSTAT (PYXIS) 30 ML UDC GT SCH ×3 (09:07→17:23)
[2022-11-21 12:00] VITALS: BP 115/59
[2022-11-21] MEDS: JEVITY 1.2 CAL 1,000 ML BOTTLE GT SCH (12:53)
[2022-11-21 16:00] VITALS: BP 124/69
--- NOTE | 2022-11-21 16:15 | NUR ---
SUPERVISOR STATEMENT CLERKS NOTES NOTED RIGHT ARM SWOLLEN AND COOL TO TOUCH, DR. HOLMAN NOTIFIED WITH NEW ORDER NOTED AND CARRIED OUT. PLAN OF CARE CONTINUE.
--- NOTE | 2022-11-21 16:17 | NUR ---
RN NOTES RECEIVED A CALL FROM XRAY TO VERIFY ORDER FOR CTA OF BRAIN ON 11/18/22 THAT WAS NOT DONE, INFORMED DR. MAYO MORGAN WITH ORDER TO STILL DO IT, NOTED AND CARRIED OUT, INFORMED XRAY, INFORMED PATIENT, CONSENT DONE AND LEFT AC G#18 PLACED. PLAN OF CARE CONTINUED.
--- NOTE | 2022-11-21 18:26 | NUR ---
TELE CLOSING NOTE PT IN BED AWAKE, ALERT AND VERBALLY RESPONSIVE, NO SOB, NO DISTRESS OR DISCOMFORT NOTED. DENIES ANY PAIN. ON TELE SR HR 87. RECTAL TUBE AND F/C INTACT DRAINING APPROPRIATELY. PT WITH BILATERAL SOFT WRIST RESTRAINTS ON. GTF JEVITY 1.2 RUNNING AT 60ML/HR, TOLERATING WELL, NO RESIDUAL NOTED. MARGARITA PICC LINE D5W AT 50 ML/HR, INTACT, FLUSHES WELL, NO S/S OF INFILTRATION NOTED. DOPPLER ULTRASOUND DONE ON RIGHT EXTREMITY, NOTED WITH PRELIMINARY RESULT POSITIVE FOR DVT ON RIGHT BRACHIAL AND RIGHT BASILIC, DR. HOLMAN NOTIFIED. SAFETY MEASURES IN PLACED. CALL LIGHT WITHIN REACH. WILL ENDORSE TO NIGHT NURSE FOR MAYE.
--- NOTE | 2022-11-21 19:23 | NUR ---
MEDICAL TECHNOLOGIST CLINICAL NOTES PER DR. LAKHANI, DON'T USE THE RIGHT UPPER ARM PICC LINE ANYMORE, WITH ORDER TO INSERT MIDLINE ON PADMINI, NOTED AND CARRIED OUT, INFORMED KITCHEN RUNNER AND ENDORSED TO PRUNER NURSE.
[2022-11-21 20:00] VITALS: BP 123/76
--- NOTE | 2022-11-21 20:00 | NUR ---
MEDICAL I D SALES NOTE PT IN BED AWAKE. A/O X 2, ON BIPAP TOLERATING THE SETTINGS WELL. NO DISTRESS OR DISCOMFORT NOTED. NO S/S OF PAIN NOTED. ON TELE SR WITH PVC'S HR 85. RECTAL TUBE AND F/C INTACT AND PATENT DRAINING WELL. BILATERAL SOFT WRIST RESTRAINTS ON. GT FEEDING INFUSING AT 60 ML/HR, 0 ML RESIDUAL NOTED. KEPT HER DRY AND CLEAN. ALL NEEDS ATTENDED. REPOSITION HER FOR COMFORT AND SKIN MANAGEMENT. WAITING FOR MIDLINE INSERTION. PER MD NOT TO USE MARGARITA PICC LINE. RT UPPER ARM DUPLEX VENOUS DONE. WAITING FOR THE RESULT. VSS. CONTINUE TO MONITOR HER.
[2022-11-21] MEDS: QUETIAPINE FUMARATE 25 MG TABLET GT SCH (21:20)
[2022-11-22] VITALS: BP 132/80
[2022-11-22] MEDS: METRONIDAZOLE 500MG/ NS 100ML 500 MG in PREMIX 1 EA IV SCH ×3 (00:56→16:18)
[2022-11-22] MEDS: IPRATROPIUM NEB FS 0.5 MG/2.5 ML AMPUL.NEB NEB SCH ×6 (03:56→23:16)
[2022-11-22 04:00] VITALS: BP 134/68
[2022-11-22] MEDS: PIPERACILLIN /TAZOBACTAM 3.375 G in IV D5W 100 ML IV SCH (05:39)
--- NOTE | 2022-11-22 06:32 | NUR ---
WELDER TOOL AND DIE NOTE PT IN BED ASLEEP WITH BIPAP ON. NO DISTRESS OR DISCOMFORT NOTED. DENIES PAIN. IVF INFUSING WELL. ON TELE SR WITH PVC. KEPT HER DRY AND CLEAN. ALL NEEDS ATTENDED. WILL ENDORSE TO DAY SHIFT NURSE FOR CONTINUE TO CARE.
[2022-11-22] MEDS: LEVOTHYROXINE SODIUM 125 MCG TABLET GT SCH (07:48)
--- NOTE | 2022-11-22 07:58 | NUR ---
TELE OEPNING NOTES PT IN BED AWAKE. A/O X 2, NO DISTRESS OR DISCOMFORT NOTED. NO S/S OF PAIN NOTED. ON TELE SR HR 81. RECTAL TUBE AND F/C INTACT AND PATENT DRAINING WELL. BILATERAL SOFT WRIST RESTRAINTS ON. GT FEEDING OFF 0700, WILL TURN BACK ON AT 1100H. RIGHT EXTREMITY SWOLLEN, MARGARITA PICC LINE NOT TO BE USED DUE TO POSITIVE FOR DVT. LEFT HAND PIV NOTED PATENT AND INTACT, FLUSHES WELL, WITH D5W INFUSING, TOLERATING WELL. SAFETY PRECAUTION IN PLACED. CALL LIGHT WITHIN REACH. PLAN OF CARE CONTINUED.
[2022-11-22 08:00] VITALS: BP 132/91
--- NOTE | 2022-11-22 09:39 | NUR ---
CHANNELER OUTSOLE NOTES RIGHT UPPER ARM DOPPLER VENOUS ULTRASOUND RESULT RECEIVED, DR. LAKHANI NOTIFIED. NO NEW ORDERS NOTED.
[2022-11-22] MEDS: ACETAMINOPHEN 650 MG/20.3 ML UDC GT SCH (09:47)
[2022-11-22] MEDS: PROSOURCE / PROSTAT (PYXIS) 30 ML UDC GT SCH ×3 (09:47→16:18)
[2022-11-22 09:48] LABS: BASOPHILS % (AUTO) 0.5 % (0.0-2.0); EOSINOPHILS % (AUTO) 0.7 % (0.0-6.0); HEMATOCRIT 28 % (33-45); LYMPHOCYTES # (AUTO) 0.4 K/uL (0.8-4.8); LYMPHOCYTES % (AUTO) 4.8 % (20.0-44.0); MEAN CORPUSCULAR HGB CONC 32 g/dl (31.0-36.0); MEAN CORPUSCULAR VOLUME 96 fL (82-100); MONOCYTES # (AUTO) 0.5 K/uL (0.1-1.30); MONOCYTES % (AUTO) 5.4 % (2.0-12.0); NEUTROPHILS # (AUTO) 7.9 K/uL (1.8-8.9); NEUTROPHILS % (AUTO) 88.6 % (43.0-81.0); PLATELET COUNT (AUTO) 201 K/uL (150-450); RED BLOOD CELL COUNT(AUTO) 2.89 MIL/uL (4.0-5.2); WHITE BLOOD COUNT (AUTO) 8.9 K/uL (4.3-11.0)
[2022-11-22] MEDS: predniSONE 20 MG TABLET PO SCH (09:48)
[2022-11-22] MEDS: PANTOPRAZOLE 40 MG/PACK PACK GT SCH ×2 (09:48→16:18)
[2022-11-22] MEDS: AMIODARONE HCL 200 MG TABLET PO SCH ×2 (09:48→16:19)
[2022-11-22] MEDS: ASCORBIC ACID 500 MG TABLET GT SCH (09:48)
[2022-11-22 10:51] LABS: CALCIUM, SERUM 7.7 mg/dL (8.5-10.1); CREATININE 0.6 mg/dL (0.6-1.3)
[2022-11-22] MEDS: IV D5W 1,000 ML IV PRN (11:33)
[2022-11-22 12:00] VITALS: BP 126/76
[2022-11-22] MEDS ORDERED: MEROPENEM 1 G in IV NS 0.9% 100 ML IV ONE (13:00)
--- NOTE | 2022-11-22 13:12 | NUR ---
THREADING MACHINE FEEDER AUTOMATIC NOTES RIGHT UPPER PICC LINE REMOVED, PER DR. LAKHANI, PATIENT TOLERATED WELL, NO BLEEDING NOTED ON THE SITE, RIGHT FEMORAL MIDLINE WAS PLACED, PATENT AND INTACT, FLUSHES WELL, PATIENT CARE CONTINUE.
[2022-11-22] MEDS: JEVITY 1.2 CAL 1,000 ML BOTTLE GT SCH (13:43)
[2022-11-22 16:00] VITALS: BP 130/75
--- NOTE | 2022-11-22 18:13 | NUR ---
TELE CLOSING NOTES PT IN BED AWAKE. A/O X 2, NO DISTRESS OR DISCOMFORT NOTED. NO S/S OF PAIN NOTED. ON TELE SR PVC HR 96. RECTAL TUBE AND F/C INTACT AND PATENT DRAINING WELL. BILATERAL SOFT WRIST RESTRAINTS ON. GT FEEDING JEVITY 1.2 @60ML/HR, TOLERATING WELL, NO RESIDUAL NOTED. BILATERAL UPPER EXTREMITY EDEMA STILL NOTED. LEFT HAND PIV NOTED PATENT AND INTACT, FLUSHES WELL. RIGHT FEMORAL MIDLINE NOTED, PATENT AND INTACT, FLUSHES WELL, INFUSING WITH D5W @50ML/HR. SAFETY PRECAUTION IN PLACED. CALL LIGHT WITHIN REACH. WILL ENDORSE TO NIGHT NURSE FOR MAYE.
[2022-11-22 20:00] VITALS: BP 124/73
--- NOTE | 2022-11-22 20:03 | NUR ---
CFA OPENING NOTE PATIENT AWAKE IN BED, ALERT/ORIENTED X 2, PT ABLE TO MAKE NEEDS KNOWN. NO C/O PAIN AT THIS TIME. PATIENT STABLE ON RA, NO S/S OF DISTRESS OR SOB NOTED, BREATHING EVEN AND UNLABORED, SPO2: 95%. PATIENT ON EXTERNAL PAPER MACHINE BACK TENDER READING SINUS RHYTHM WITH BBB, HR: 85. IV ACCESS ON LEFT HAND #22G INTACT AND SALINE LOCKED, RIGHT FEMORAL MIDLINE INTACT AND INFUSING D5W@ 50 ML/HR. PATIENT ON GTF JEVITY 1.2 @ 60 ML/HR X 20 HOURS, TO BE TURNED OFF AT 7 AM PER DAYSHIFT RN. PATIENT NOTED WITH PARKER CATHETER DRAINING YELLOW URINE BY GRAVITY. RECTAL TUBE NOTED WELL. BILATERAL SOFT WRIST RESTRAINTS IN PLACE. SAFETY MEASURES IN PLACE: CALL LIGHT WITHIN REACH, SIDE RAILS UP X 3, BED LOCKED IN LOWEST POSITION, HOB ELEVATED, BED ALARM ON. WILL CONTINUE TO MONITOR PATIENT
[2022-11-22] MEDS ORDERED: MEROPENEM 1 G in IV NS 0.9% 100 ML IV SCH (21:00)
[2022-11-22] MEDS: QUETIAPINE FUMARATE 25 MG TABLET GT SCH (22:10)
[2022-11-23] VITALS: BP 114/72
--- NOTE | 2022-11-23 00:30 | NUR ---
INDUSTRIAL CHEMIST NOTE PATIENT NOTED WITH RIGHT WRIST SKIN TEAR, WAS COVERED WITH DRESSING BUT NO DOCUMENTATION OF SKIN TEAR. WOUND CARE CONSULT ORDERED, PHOTO TAKEN AND PLACED IN CHART. CLEANSED WITH NS, COVERED WITH XEROFORM AND DRESSING. CONTINUE TO MONITOR
[2022-11-23] MEDS: IPRATROPIUM NEB FS 0.5 MG/2.5 ML AMPUL.NEB NEB SCH ×5 (03:21→20:06)
[2022-11-23 04:00] VITALS: BP 124/69
--- NOTE | 2022-11-23 06:26 | NUR ---
LINE OUT WORKER CLOSING NOTE PATIENT SLEEPING IN BED, ALERT/ORIENTED X 1-2. PATIENT STABLE ON RA, NO S/S OF DISTRESS OR SOB NOTED, BREATHING EVEN AND UNLABORED, PATIENT HAD BIPAP MACHINE ALL NIGHT. PATIENT ON EXTERNAL MAINTENANCE FOREMAN READING SINUS RHYTHM, HR: 82. IV ACCESS ON LEFT HAND #22G INTACT AND SALINE LOCKED, RIGHT FEMORAL MIDLINE INTACT AND INFUSING D5W@ 50 ML/HR. PATIENT ON GTF JEVITY 1.2 @ 60 ML/HR X 20 HOURS, TO BE TURNED OFF AT 7 AM AND BACK ON AT 11 AM. PATIENT NOTED WITH PARKER CATHETER DRAINING YELLOW URINE BY GRAVITY, OUPUT [address] ML. RECTAL TUBE IN PLACE, NO OUTPUT NOTED. BILATERAL SOFT WRIST RESTRAINTS IN PLACE. NO SIGNIFICANT CHANGES THIS SHIFT, PT SLEPT WELL THROUGH THE NIGHT, MEDICATIONS GIVEN ORDERED, PT NEEDS MET THROUGHOUT SHIFT, PATIENT TURNED Q2H AND WOUND PHOTOS TAKEN AND PLACED IN CHART.SAFETY MEASURES IN PLACE: CALL LIGHT WITHIN REACH, SIDE RAILS UP X 3, BED LOCKED IN LOWEST POSITION, HOB ELEVATED, BED ALARM ON.WILL ENDORSE TO DAYSHIFT RN FOR CONTINUITY OF CARE
--- NOTE | 2022-11-23 07:18 | NUR ---
RN notes Received patient in bed, resting without active complaint. Telemetry showed SR HR 80/min. Noted right arm edema with good distal circulation. Right femoral ML is dry and intact with D5 running at 50mL/hr. Call muniz is placed within reach. Bed is locked and placed in the lowest position. All safety measures have been implemented. Will continue monitoring and care.
[2022-11-23] MEDS: LEVOTHYROXINE SODIUM 125 MCG TABLET GT SCH (07:43)
[2022-11-23 08:00] VITALS: BP 115/68
--- NOTE | 2022-11-23 09:27 | NUR ---
WOUND CARE CONSULT: PT SEEN FOR RT ARM SKIN TEAR. THERE IS SWELLING WITH DISCOLORATION TO BILATERAL ARMS. RECOMMENDATIONS MADE FOR WOUND CARE AND SKIN PROTECTION. DISCUSSED WITH NURSING STAFF. MD IN AGREEMENT WITH PLAN OF CARE.
[2022-11-23] MEDS: ACETAMINOPHEN 650 MG/20.3 ML UDC GT SCH (09:58)
[2022-11-23] MEDS: predniSONE 20 MG TABLET PO SCH (09:58)
[2022-11-23] MEDS: ASCORBIC ACID 500 MG TABLET GT SCH (09:58)
[2022-11-23] MEDS: PANTOPRAZOLE 40 MG/PACK PACK GT SCH ×2 (09:58→16:19)
[2022-11-23] MEDS: PROSOURCE / PROSTAT (PYXIS) 30 ML UDC GT SCH ×3 (09:59→16:19)
[2022-11-23] MEDS: AMIODARONE HCL 200 MG TABLET PO SCH ×2 (09:59→16:18)
[2022-11-23] MEDS: JEVITY 1.2 CAL 1,000 ML BOTTLE GT SCH (11:00)
[2022-11-23 12:00] VITALS: BP 104/62
[2022-11-23] MEDS: IV D5W 1,000 ML IV PRN (12:22)
--- NOTE | 2022-11-23 15:56 | NUR ---
RN notes Removed upper limbs soft restraints at 1000. Patient is cooperative and did not remove any lines. Placed restraint order as complete.
[2022-11-23 16:00] VITALS: BP 100/61
--- NOTE | 2022-11-23 18:50 | NUR ---
RN notes Patient is resting in bed without active complaint. Telemetry showed SR HR 80/min. There's a leakage in flexiseal, but it is in place. Position changed and linen is changed. Dressing over right femoral ML site is changed as well. Right femoral ML is now dry and intact with D5 running at 50mL/hr. Call muniz is placed within reach. Bed is locked and placed in the lowest position. All safety measures have been implemented. Will endorse PM nruse to continue monitoring and care.
--- NOTE | 2022-11-23 19:50 | NUR ---
MAIL CARRIER AND CLERK OPENING NOTE PATIENT AWAKE IN BED, ALERT/ORIENTED X 2, PT ABLE TO MAKE NEEDS KNOWN. NO C/O PAIN AT THIS TIME. PATIENT STABLE ON RA, NO S/S OF DISTRESS OR SOB NOTED, BREATHING EVEN AND UNLABORED, SPO2: 95%. PATIENT ON EXTERNAL PIPE FITTER READING SINUS RHYTHM WITH HR: 93. IV ACCESS TO LEFT HAND #22G INTACT AND SALINE LOCKED, RIGHT FEMORAL MIDLINE INTACT AND INFUSING D5W@ 50 ML/HR. PATIENT ON GTF JEVITY 1.2 @ 60 ML/HR X 20 HOURS, TO BE TURNED OFF AT 7 AM PER DAYSHIFT RN. PATIENT NOTED WITH PARKER CATHETER DRAINING YELLOW URINE BY GRAVITY. RECTAL TUBE NOTED WELL. BILATERAL SOFT WRIST RESTRAINTS IN PLACE. SAFETY MEASURES IN PLACE: CALL LIGHT WITHIN REACH, SIDE RAILS UP X 3, BED LOCKED IN LOWEST POSITION, HOB ELEVATED, BED ALARM ON. WILL CONTINUE TO MONITOR PATIENT
[2022-11-23] MEDS: QUETIAPINE FUMARATE 25 MG TABLET GT SCH (22:40)
[2022-11-23 23:55] VITALS: BP 110/52
[2022-11-24] VITALS: BP 113/75
[2022-11-24] MEDS: IPRATROPIUM NEB FS 0.5 MG/2.5 ML AMPUL.NEB NEB SCH ×7 (00:21→23:47)
[2022-11-24 04:00] VITALS: BP 123/80
--- NOTE | 2022-11-24 07:10 | NUR ---
HEATING OPERATORS ENGINEER CLOSING NOTE LEFT PATIENT IN BED, AWAKE, ALERT/ORIENTED X 1-2. PATIENT STABLE ON RA, NO S/S OF DISTRESS OR SOB NOTED, BREATHING EVEN AND UNLABORED, PATIENT HAD BIPAP MACHINE ALL NIGHT. PATIENT ON EXTERNAL PUSHER OPERATOR READING SINUS RHYTHM, HR: 91. IV ACCESS ON LEFT HAND #22G INTACT AND SALINE LOCKED, RIGHT FEMORAL MIDLINE INTACT AND INFUSING D5W@ 50 ML/HR. PATIENT ON GTF JEVITY 1.2 @ 60 ML/HR X 20 HOURS, TO BE TURNED OFF AT 7 AM AND BACK ON AT 11 AM. PATIENT NOTED WITH PARKER CATHETER DRAINING YELLOW URINE BY GRAVITY, OUPUT [address]. RECTAL [address]UBE IN PLACE, NO OUTPUT NOTED. BILATERAL SOFT WRIST RESTRAINTS IN PLACE. NO SIGNIFICANT CHANGES THIS SHIFT, PT SLEPT WELL THROUGH THE NIGHT, MEDICATIONS GIVEN ORDERED, PT NEEDS MET THROUGHOUT SHIFT, PATIENT TURNED Q2H.SAFETY MEASURES IN PLACE: CALL LIGHT WITHIN REACH, SIDE RAILS UP X 3, BED LOCKED IN LOWEST POSITION, HOB ELEVATED, BED ALARM ON.WILL ENDORSE TO DAYSHIFT RN FOR CONTINUITY OF CARE.
[2022-11-24 07:14] LABS: CALCIUM, SERUM 8.3 mg/dL (8.5-10.1); CREATININE 0.6 mg/dL (0.6-1.3)
[2022-11-24] MEDS: LEVOTHYROXINE SODIUM 125 MCG TABLET GT SCH (07:41)
[2022-11-24 08:00] VITALS: BP 130/92
[2022-11-24] MEDS: AMIODARONE HCL 200 MG TABLET PO SCH ×2 (08:35→17:13)
[2022-11-24] MEDS: PANTOPRAZOLE 40 MG/PACK PACK GT SCH ×2 (08:35→17:12)
[2022-11-24] MEDS: ACETAMINOPHEN 650 MG/20.3 ML UDC GT SCH (08:36)
[2022-11-24] MEDS: ASCORBIC ACID 500 MG TABLET GT SCH (08:37)
[2022-11-24] MEDS: predniSONE 20 MG TABLET PO SCH (08:37)
[2022-11-24] MEDS: PROSOURCE / PROSTAT (PYXIS) 30 ML UDC GT SCH ×3 (08:39→17:12)
--- NOTE | 2022-11-24 10:54 | NUR ---
RN note Na is 132mmol/L today. Informed doctor about the result and the need for D5 infusion. He said to discontinue the infusion. Addendum: 11/24/22 at 1056 by ALEXANDRA ELIZALDE RN doctor Calhoun
[2022-11-24] MEDS: JEVITY 1.2 CAL 1,000 ML BOTTLE GT SCH (11:11)
[2022-11-24 11:36] LABS: BASOPHILS % (AUTO) 0.3 % (0.0-2.0); EOSINOPHILS % (AUTO) 0.8 % (0.0-6.0); HEMATOCRIT 27 % (33-45); HEMOGLOBIN 8.6 g/dL (11.5-14.8); LYMPHOCYTES # (AUTO) 0.3 K/uL (0.8-4.8); LYMPHOCYTES % (AUTO) 2.5 % (20.0-44.0); MEAN CORPUSCULAR HGB CONC 31 g/dl (31.0-36.0); MEAN CORPUSCULAR VOLUME 99 fL (82-100); MONOCYTES # (AUTO) 0.6 K/uL (0.1-1.30); MONOCYTES % (AUTO) 4.8 % (2.0-12.0); NEUTROPHILS # (AUTO) 10.5 K/uL (1.8-8.9); NEUTROPHILS % (AUTO) 91.6 % (43.0-81.0); PLATELET COUNT (AUTO) 154 K/uL (150-450); RED BLOOD CELL COUNT(AUTO) 2.77 MIL/uL (4.0-5.2); WHITE BLOOD COUNT (AUTO) 11.5 K/uL (4.3-11.0)
[2022-11-24 12:00] VITALS: BP 144/84
[2022-11-24 16:00] VITALS: BP 128/86
--- NOTE | 2022-11-24 17:03 | NUR ---
RECEIVED PATIENT ON ROOM AIR SATURATIONS AT 95-96%. MD ORDERED HHN TXS JOSEPH WELL WITH NO ADVERSE REACTION NOTED. NO SOB NOTED.
--- NOTE | 2022-11-24 18:00 | NUR ---
RN note As patient is free from lower limbs DVT, placed a sequential pump for patient as DVT prophylaxis.
--- NOTE | 2022-11-24 19:20 | NUR ---
RN NOTE Patient in bed, on semi knapp's, AO x 2-3 in no acute distress, saturation at 95% on room air, SR on the monitor, HR is 90. PADMINI midline patent and flushing well, saline locked. Perdue catheter draining to a clear, yellow output. Safety measures implemented, bed is locked and at lowest position, hob elevated, call light within reach of patient. Will cont to monitor and reassess.
--- NOTE | 2022-11-24 19:33 | NUR ---
RN notes Patient is resting in bed without active complaint. Telemetry showed SR HR 70/min. Left upper arm ML site is dry and patent. Call muniz is placed within reach. Bed is locked and placed in the lowest position. All safety measures have been implemented. Will endorse PM nurse to continue monitoring and care.
[2022-11-24 20:00] VITALS: BP 114/78
[2022-11-24] MEDS: QUETIAPINE FUMARATE 25 MG TABLET GT SCH (21:30)
[2022-11-25] VITALS: BP 126/64
[2022-11-25] MEDS: IPRATROPIUM NEB FS 0.5 MG/2.5 ML AMPUL.NEB NEB SCH ×5 (03:35→21:11)
[2022-11-25 04:00] VITALS: BP 109/69
[2022-11-25 06:41] LABS: EOSINOPHILS % (AUTO) 0.9 % (0.0-6.0); HEMATOCRIT 27 % (33-45); HEMOGLOBIN 8.9 g/dL (11.5-14.8); LYMPHOCYTES # (AUTO) 0.4 K/uL (0.8-4.8); LYMPHOCYTES % (AUTO) 4.8 % (20.0-44.0); MEAN CORPUSCULAR HGB CONC 32 g/dl (31.0-36.0); MEAN CORPUSCULAR VOLUME 96 fL (82-100); MONOCYTES # (AUTO) 0.5 K/uL (0.1-1.30); NEUTROPHILS # (AUTO) 7.8 K/uL (1.8-8.9); NEUTROPHILS % (AUTO) 88.3 % (43.0-81.0); PLATELET COUNT (AUTO) 193 K/uL (150-450); RED BLOOD CELL COUNT(AUTO) 2.85 MIL/uL (4.0-5.2); WHITE BLOOD COUNT (AUTO) 8.8 K/uL (4.3-11.0)
--- NOTE | 2022-11-25 07:10 | NUR ---
RN notes Received patient in bed without active complaint. Telemetry showed SR HR 80/min. Left upper arm ML site is dry and patent. G-tube feeding is stopped at 0700. Call muniz is placed within reach. Bed is locked and placed in the lowest position. All safety measures have been implemented. Will endorse PM nurse to continue monitoring and care.
[2022-11-25 07:40] LABS: CALCIUM, SERUM 7.7 mg/dL (8.5-10.1); CREATININE 0.6 mg/dL (0.6-1.3)
[2022-11-25 08:00] VITALS: BP 120/87
[2022-11-25] MEDS: ACETAMINOPHEN 650 MG/20.3 ML UDC GT SCH (08:17)
[2022-11-25] MEDS: predniSONE 20 MG TABLET PO SCH (08:17)
[2022-11-25] MEDS: PANTOPRAZOLE 40 MG/PACK PACK GT SCH ×2 (08:17→17:01)
[2022-11-25] MEDS: LEVOTHYROXINE SODIUM 125 MCG TABLET GT SCH (08:18)
[2022-11-25] MEDS: PROSOURCE / PROSTAT (PYXIS) 30 ML UDC GT SCH ×3 (08:18→17:00)
[2022-11-25] MEDS: AMIODARONE HCL 200 MG TABLET PO SCH ×2 (08:18→17:01)
[2022-11-25] MEDS: ASCORBIC ACID 500 MG TABLET GT SCH (08:18)
[2022-11-25 12:02] VITALS: BP 118/68
[2022-11-25] MEDS: JEVITY 1.2 CAL 1,000 ML BOTTLE GT SCH (12:34)
--- NOTE | 2022-11-25 14:17 | NUR ---
employment evaluator/case manager MALA notifie regarding discharge,awaits snf bed.
[2022-11-25] MEDS ORDERED: LACT-209 GT (15:06)
[2022-11-25] MEDS ORDERED: ALBUT2 NEB (15:06)
[2022-11-25] MEDS ORDERED: AMIO200T7 PO (15:06)
[2022-11-25] MEDS ORDERED: AMIO200T5 PO (15:06)
[2022-11-25] MEDS ORDERED: Prosource GT (15:06)
[2022-11-25] MEDS ORDERED: IPRA0.2S9 NEB (15:06)
[2022-11-25] MEDS ORDERED: PRED20TA PO (15:06)
[2022-11-25] MEDS ORDERED: PANT40SU2 GT (15:06)
[2022-11-25 16:00] VITALS: BP 119/87
--- NOTE | 2022-11-25 16:30 | NUR ---
RN note -DC planning Handover is given to SNF RN MC. She told us that patient was not on Bipap previously and would need to acquire equipment for nocturnal Bipap. Informed sample case porter.
--- NOTE | 2022-11-25 18:47 | NUR ---
RN notes Patient is resting in bed without active complaint. Telemetry showed SR HR 80/min. Left upper arm ML site is dry and patent. Call muniz is placed within reach. Bed is locked and placed in the lowest position. All safety measures have been implemented. Will endorse PM nurse to continue monitoring and care.
--- NOTE | 2022-11-25 19:30 | NUR ---
FINAL INSPECTOR OPENING NOTES RECEIVED PATIENT AWAKE IN BED. A/O X2, FORGETFUL. BREATHING EVEN AND NON-LABORED ON ROOM AIR. NOT IN APPARENT DISTRESS. NO C/O PAIN OR DISCOMFORT AT THIS TIME. ON TELE MONITOR READING SINUS RHYTHM WITH PAC AND PVC AT 87 BPM. HAS LEFT UPPER ARM MIDLINE #18G AND SALINE LOCKED. NO S/S INFILTRATION NOTED. HAS PEG TUBE FEEDING OF JEVITY 1.2 RUNNING AT 60 ML/HR. HAS INDWELLING PARKER CATHETER DRAINING YELLOW URINE TO BAG BY GRAVITY. HAS BILATERAL LEG DVT PUMP. SAFETY PRECAUTIONS IN PLACE: BED LOCKED AND IN LOW POSITION, SIDE RAILS UP X3, CALL LIGHT WITHIN REACH. WILL CONTINUE POC.
[2022-11-25 20:00] VITALS: BP 143/71
[2022-11-25] MEDS: QUETIAPINE FUMARATE 25 MG TABLET GT SCH (21:32)
[2022-11-26] VITALS: BP 110/66
[2022-11-26] MEDS: IPRATROPIUM NEB FS 0.5 MG/2.5 ML AMPUL.NEB NEB SCH ×4 (00:48→11:32)
--- NOTE | 2022-11-26 00:55 | NUR ---
FAMILY SERVICE COUNSELOR NOTES PATIENT REMOVING HER BIPAP, BILATERAL SOFT WRIST RESTRAINTS PLACED.
[2022-11-26 04:00] VITALS: BP 127/77
--- NOTE | 2022-11-26 06:47 | NUR ---
SAIL REPAIR PERSON CLOSING NOTES PATIENT LAYING IN BED AWAKE IN SEMI ROLDAN'S. ABLE TO VERBALIZE NEEDS. SOME CONFUSION NOTED, NEEDS FREQUENT REORIENTATION. NO ACUTE EVENTS DURING THE NIGHT. MINIMAL SLEEP WHILE ON BIPAP. NO CARDIAC OR RESPIRATORY DISTRESS NOTED. DENIES PAIN AT THIS TIME. AFEBRILE. ON TELE MONITOR READING SINUS RHYTHM WITH PAC AND PVC AT 91 BPM. LEFT UPPER ARM MIDLINE #18G INTACT, PATENT AND FLUSHING. PEG TUBE FLUSHED AND PATENT, RESIDUAL OF 25 ML NOTED. CLEAR YELLOW URINE OUTPUT NOTED. DARK BROWN LIQUID STOOL NOTED. BILATERAL UPPER EXTREMITIES ECCHYMOSIS NOTED. BILATERAL SOFT WRIST RESTRAINTS OFF. ALL DUE MEDS GIVEN AND NEEDS ATTENDED. SAFETY PRECAUTIONS MAINTAINED. WILL ENDORSE TO NEXT SHIFT FOR MAYE.
--- NOTE | 2022-11-26 07:30 | NUR ---
MS DROP BOARD WORKER AM Notes RECEIVED PT IN BED AWAKE. AO X 2, ON ROOM AIR, O2 SAT 94%, NO SOB, RESPIRATION UNLABORED. NO SIGNS OF PAIN/DISCOMFORT. IV LEFT UA MIDLINE #18G, LEFT HAND #22G, FLUSHES WELL, SITE CLEAR. CHECKED FOR PLACEMENT. 60ML/HR X 20 (OFF 0700, ON 1100) SAFETY PRECAUTIONS IN PLACE. BED LOCKED AND AT LOWEST LEVEL. X2 RAILS UP, CALL LIGHT WITHIN REACH. BED ALARM ON. WILL CONTINUE TO MONITOR.
[2022-11-26 08:00] VITALS: BP 146/85
[2022-11-26] MEDS: LEVOTHYROXINE SODIUM 125 MCG TABLET GT SCH ×2 (08:17→08:32)
[2022-11-26] MEDS: PROSOURCE / PROSTAT (PYXIS) 30 ML UDC GT SCH ×2 (08:31→13:19)
[2022-11-26] MEDS: ACETAMINOPHEN 650 MG/20.3 ML UDC GT SCH (08:31)
[2022-11-26] MEDS: PANTOPRAZOLE 40 MG/PACK PACK GT SCH (08:31)
[2022-11-26] MEDS: ASCORBIC ACID 500 MG TABLET GT SCH (08:32)
[2022-11-26] MEDS: AMIODARONE HCL 200 MG TABLET PO SCH (08:32)
[2022-11-26] MEDS: predniSONE 20 MG TABLET PO SCH (08:32)
--- NOTE | 2022-11-26 09:30 | NUR ---
RN NOTES DUE MEDS GIVEN
[2022-11-26 12:00] VITALS: BP 116/72
--- NOTE | 2022-11-26 12:11 | NUR ---
RN NOTES REPORT GIVEN TO EDSON DONALD AT FACILITY. PATIENT TO BE DISCHARGED TO [facility] PER MD IN STABLE CONDITION. PROVIDED DC INSTRUCTIONS, MED RECON LIST AND HEALTH TEACHINGS. TO FOLLOW UP WITH PCP IN 1 WEEK OR PER FACILITY PROTOCOL. NO BELONGINGS. ALL PAPERWORKS SIGNED. WILL REMOVE RECTAL TUBE AND IV ACCESS. UNABLE TO TAKE PICTURES OF SKIN ISSUES. PATIENT REFUSE TO TURN AND COOPERATE AT THIS TIME. SKIN ISSUES CONFORMED WITH PREVIOUS PHOTOS. AMBULANCE CLIENT RELATIONS REPRESENTATIVE AT 1400.
--- NOTE | 2022-11-26 15:06 | NUR ---
EEG TECHNOLOGIST NOTES RECTAL TUBE REMOVED. LEFT HAND IV ACCESS AND LEFT UPPER ARM MIDLINE REMOVED. BOTH CATH COMPLETE, APPLIED PRESSURE AND DRESSING. NO BLEEDING NOTED. 2 AMBULANCE CREW PICKED UP PATIENT AND WILL BRING TO FACILITY
== END 2022-11-26 14:54 | DRG 208 ==
LOC: ER 14:55 → TRANSITION 18:51 → ICU 19:46 → TELE-TD 11-16 19:43 → TELE1 11-20 09:33
PROVIDERS: ADMIT Internal Medicine; ATTEND Nurse Practitioner Acute Care
PROC: 5A1945Z Respiratory Ventilation, 24-96 Consecutive Hours (ICD-10-PCS; principal; 2022-11-12)
PROC: 0BH18EZ Insertion of Endotracheal Airway into Trachea, Via Natural or Artificial Opening Endoscopic (ICD-10-PCS; 2022-11-12)
PROC: 02HV33Z Insertion of Infusion Device into Superior Vena Cava, Percutaneous Approach (ICD-10-PCS; 2022-11-13)
PROC: B548ZZA Ultrasonography of Superior Vena Cava, Guidance (ICD-10-PCS; 2022-11-13)
PROC: 5A09357 Assistance with Respiratory Ventilation, Less than 24 Consecutive Hours, Continuous Positive Airway Pressure (ICD-10-PCS; 2022-11-16)
PROC: 30233N1 Transfusion of Nonautologous Red Blood Cells into Peripheral Vein, Percutaneous Approach (ICD-10-PCS; 2022-11-17)
PROC: 0DB68ZX Excision of Stomach, Via Natural or Artificial Opening Endoscopic, Diagnostic (ICD-10-PCS; 2022-11-19)
PROC: 06HM33Z Insertion of Infusion Device into Right Femoral Vein, Percutaneous Approach (ICD-10-PCS; 2022-11-22)
PROC: 05HF33Z Insertion of Infusion Device into Left Cephalic Vein, Percutaneous Approach (ICD-10-PCS; 2022-11-24)
DX: J96.21 Acute and chronic respiratory failure with hypoxia (principal); J15.9 Unspecified bacterial pneumonia; I21.A1 Myocardial infarction type 2; N17.0 Acute kidney failure with tubular necrosis; G93.41 Metabolic encephalopathy; I50.33 Acute on chronic diastolic (congestive) heart failure; I50.32 Chronic diastolic (congestive) heart failure; E44.0 Moderate protein-calorie malnutrition; K92.2 Gastrointestinal hemorrhage, unspecified; D68.59 Other primary thrombophilia; E87.1 Hypo-osmolality and hyponatremia; E87.0 Hyperosmolality and hypernatremia; E87.29 Other acidosis; F03.918 Unspecified dementia, unspecified severity, with other behavioral disturbance; I47.1 Supraventricular tachycardia; I48.19 Other persistent atrial fibrillation; J44.0 Chronic obstructive pulmonary disease with (acute) lower respiratory infection; J44.1 Chronic obstructive pulmonary disease with (acute) exacerbation; J98.11 Atelectasis; N39.0 Urinary tract infection, site not specified; J96.22 Acute and chronic respiratory failure with hypercapnia; B96.89 Other specified bacterial agents as the cause of diseases classified elsewhere; D63.8 Anemia in other chronic diseases classified elsewhere; E03.9 Hypothyroidism, unspecified; E11.22 Type 2 diabetes mellitus with diabetic chronic kidney disease; E78.5 Hyperlipidemia, unspecified; E83.39 Other disorders of phosphorus metabolism; E88.09 Other disorders of plasma-protein metabolism, not elsewhere classified; F32.A Depression, unspecified; I25.10 Atherosclerotic heart disease of native coronary artery without angina pectoris; K21.9 Gastro-esophageal reflux disease without esophagitis; K29.70 Gastritis, unspecified, without bleeding; N18.9 Chronic kidney disease, unspecified; I11.0 Hypertensive heart disease with heart failure; R13.10 Dysphagia, unspecified; S30.0XXA Contusion of lower back and pelvis, initial encounter; Y92.89 Other specified places as the place of occurrence of the external cause; Y95 Nosocomial condition; Z86.74 Personal history of sudden cardiac arrest; Z93.1 Gastrostomy status
CPT/HCPCS: 31720; 36415; 36569; 36600; 70450-TC; 71045-TC; 80048-TC; 80076-TC; 81001; 82803-TC; 83735-TC; 83880; 84100-TC; 84484-TC; 85025-TC; 85027-TC; 85610-TC; 85730-TC; 86850-TC; 87081-TC; 87086-TC; 87177; 87209; 93970-TC; 93971-TC; 94002-TC; 94003-TC; 94660; 94760-TC; 94799-TC; 99082-TC; A4216; A4217; A4623; A6253; A6403; C9113; C9803; G0378; J0282; J0330; J1644; J1650; J2185; J2370; J2543; J2704; J2920; J3490; J7030; J7042; J7050; J7060; J7070; P9016

== ENCOUNTER 2022-12-09 09:47 | Inpatient (IN) | payer MEDICARE, OTHER ==
[~2022-12-09] VITALS: Ht 165.1 cm; Wt 73.5 kg
[~2022-12-09 09:47] MED LIST changes: +ACET-2605 GT; +ALBU0.633 IH; -ALBU2.5V38 IH; +ALBUT2 NEB; -AMIN30LI2 GT; +AMIO200T5 PO; +AMIO200T7 PO; -AMOX-427 PO; -ASCO500C17 GT; +ASCO500T10 GT; +IPRA0.2S9 NEB; +MAGN400O6 GT; -METH4TAB3 PO; +PRED20TA PO; +Prosource GT; -ZINC56.713 TP
[2022-12-09] MEDS ORDERED: IPRATROPIUM NEB FS 0.5 MG/2.5 ML AMPUL.NEB NEB ONE (10:30)
[2022-12-09] MEDS ORDERED: methylPREDNISolone SOD SUCC 125 MG/2ML VIAL IV ONE (10:30)
[2022-12-09] MEDS ORDERED: ALBUTEROL FS 2.5 MG/3 ML VIAL.NEB CONTNEB ONE (10:30)
[2022-12-09] MEDS ORDERED: methylPREDNISolone SOD SUCC 125 MG/2ML VIAL ONE (10:31)
[2022-12-09 10:48] LABS: BASOPHILS % (AUTO) 0.2 % (0.0-2.0); HEMATOCRIT 34 % (33-45); HEMOGLOBIN 10.9 g/dL (11.5-14.8); LYMPHOCYTES # (AUTO) 0.3 K/uL (0.8-4.8); LYMPHOCYTES % (AUTO) 3.2 % (20.0-44.0); MEAN CORPUSCULAR HGB CONC 32 g/dl (31.0-36.0); MEAN CORPUSCULAR VOLUME 97 fL (82-100); MONOCYTES # (AUTO) 0.6 K/uL (0.1-1.30); MONOCYTES % (AUTO) 7.5 % (2.0-12.0); NEUTROPHILS % (AUTO) 89.1 % (43.0-81.0); PLATELET COUNT (AUTO) 216 K/uL (150-450); RED BLOOD CELL COUNT(AUTO) 3.52 MIL/uL (4.0-5.2); WHITE BLOOD COUNT (AUTO) 7.9 K/uL (4.3-11.0)
[2022-12-09] MEDS ORDERED: ALBUTEROL FS 2.5 MG/3 ML VIAL.NEB ONE (10:49)
[2022-12-09] MEDS ORDERED: IPRATROPIUM NEB FS 0.5 MG/2.5 ML AMPUL.NEB ONE ×3 (10:49→23:06)
[2022-12-09 11:03] LABS: ABG BASE EXCESS 8.2 mmol/L; ABG PCO2 70.7 mmHg (35.0-45.0); ABG PH 7.329 (7.350-7.450); ABG PO2 72.4 mmHg (75.0-100.0); COHb 0.8 % (0.5-1.5); MetHb 0.1 % (0.0-1.5); O2Hb 92.8 % (94.0-97.0); SITE, ABG Left Radial; VENT MODE, BG 6L NC
[2022-12-09 11:10] LABS: CALCIUM, SERUM 9.7 mg/dL (8.5-10.1); CARBON DIOXIDE 35 mmol/L (21-32); CHLORIDE 94 mmol/L (98-107); CREATININE 1.3 mg/dL (0.6-1.3); GLUCOSE 158 mg/dL (74-106); POTASSIUM 5.4 mmol/L (3.5-5.1); SODIUM SERUM 134 mmol/L (136-145); UREA NITROGEN, BLOOD 63 mg/dL (7-18)
[2022-12-09 11:23] LABS: ALANINE AMINOTRANSFERASE 15 U/L (12-78); ALBUMIN 2.6 g/dL (3.4-5.0); ALKALINE PHOSPHATASE 80 U/L (46-116); ASPARTATE AMINOTRANSFERASE 16 U/L (15-37); BILIRUBIN,DIRECT 0.2 mg/dL (0.0-0.2); BILIRUBIN,TOTAL 0.5 mg/dL (0.2-1.0); TOTAL PROTEIN, SERUM 6.3 g/dL (6.4-8.2)
[2022-12-09] MEDS ORDERED: AZITHROMYCIN 500 MG in IV D5W 250 ML IV ONE (11:30)
[2022-12-09] MEDS ORDERED: VANCOMYCIN 1 GM in IV D5W 250 ML IV ONE (11:30)
[2022-12-09] MEDS ORDERED: SODIUM POLYSTYRENE SULFONATE 15 G/60 ML BOTTLE PO ONE (11:30)
[2022-12-09] MEDS ORDERED: PIPERACILLIN /TAZOBACTAM 3.375 G in IV D5W 50 ML IV ONE (11:30)
[2022-12-09] MEDS ORDERED: SODIUM POLYSTYRENE SULFONATE 15 G/60 ML BOTTLE RC ONE (12:00)
[2022-12-09] MEDS ORDERED: SODIUM POLYSTYRENE SULFONATE 15 G/60 ML BOTTLE ONE ×2 (12:06→12:10)
--- NOTE | 2022-12-09 12:55 | NUR ---
COVID SWAB OBTAINED
[2022-12-09] MEDS ORDERED: ACETAMINOPHEN ES 500 MG TABLET GT PRN (14:00)
[2022-12-09] MEDS ORDERED: MAG HYDROX/AL HYDROX/SIMETH 30 ML UDC PO PRN (14:00)
[2022-12-09] MEDS ORDERED: ONDANSETRON HCL/PF 4 MG/2 ML VIAL IVP PRN (14:00)
[2022-12-09] MEDS ORDERED: POLYETHYLENE GLYCOL 3350 17 GM POWD.PACK GT PRN (14:00)
[2022-12-09] MEDS ORDERED: ALBUTEROL SULFATE 0.63 MG IH PRN (14:00)
[2022-12-09] MEDS ORDERED: MAGNESIUM HYDROXIDE 30 ML UDC PO PRN (14:00)
[2022-12-09] MEDS ORDERED: ALBUTEROL FS 2.5 MG/3 ML VIAL.NEB NEB PRN (14:00)
[2022-12-09] MEDS ORDERED: Z GUARD REMEDY 4 OZ OINT TP PRN (14:00)
[2022-12-09] MEDS ORDERED: MAGNESIUM HYDROXIDE 30 ML UDC GT PRN (14:00)
[2022-12-09] MEDS ORDERED: ACETAMINOPHEN 325 MG TABLET PO PRN (14:00)
[2022-12-09] MEDS ORDERED: JEVITY 1.2 CAL 1,000 ML BOTTLE GT SCH (14:00)
--- NOTE | 2022-12-09 14:00 | NUR ---
CALLED NURSING SUP FOR BED
[2022-12-09] MEDS: IV NS 0.9% 1,000 ML IV SCH (15:18)
[2022-12-09] MEDS: IPRATROPIUM NEB FS 0.5 MG/2.5 ML AMPUL.NEB NEB SCH ×3 (15:30→23:05)
--- NOTE | 2022-12-09 16:43 | NUR ---
PT UPGRADE TO ICU
[2022-12-09 17:20] LABS: ABG BASE EXCESS 3.8 mmol/L; ABG PCO2 73.9 mmHg (35.0-45.0); ABG PH 7.272 (7.350-7.450); ABG PO2 78.7 mmHg (75.0-100.0); COHb 0.9 % (0.5-1.5); MetHb 0.3 % (0.0-1.5); O2Hb 93.7 % (94.0-97.0); SITE, ABG Left Radial; VENT MODE, BG 15L NRB
[2022-12-09] MEDS ORDERED: methylPREDNISolone SOD SUCC 40 MG/ML VIAL ONE ×2 (17:22→17:25)
[2022-12-09] MEDS ORDERED: PANTOPRAZOLE 40 MG/PACK PACK ONE ×2 (17:22→17:23)
[2022-12-09] MEDS: PANTOPRAZOLE 40 MG/PACK PACK GT SCH (17:47)
[2022-12-09] MEDS: methylPREDNISolone SOD SUCC 40 MG/ML VIAL IV SCH (17:47)
[2022-12-09] MEDS: ZOSYN IVPB 3.375 G in IV D5W 50ml IV SCH (17:59)
[2022-12-09] MEDS: QUETIAPINE FUMARATE 25 MG TABLET GT SCH (22:00)
[2022-12-10] VITALS (12 sets, daily range): BP systolic 67–132; BP diastolic 35–68
[2022-12-10] MEDS: ZOSYN IVPB 3.375 G in IV D5W 50ml IV SCH ×5 (00:01→23:19)
[2022-12-10] MEDS ORDERED: methylPREDNISolone SOD SUCC 40 MG/ML VIAL ONE ×2 (00:03→06:03)
[2022-12-10] MEDS: methylPREDNISolone SOD SUCC 40 MG/ML VIAL IV SCH ×5 (00:09→23:22)
[2022-12-10] MEDS: IPRATROPIUM NEB FS 0.5 MG/2.5 ML AMPUL.NEB NEB SCH ×6 (02:34→23:53)
[2022-12-10] MEDS ORDERED: IPRATROPIUM NEB FS 0.5 MG/2.5 ML AMPUL.NEB ONE ×3 (02:34→12:16)
[2022-12-10] MEDS: IV NS 0.9% 1,000 ML IV SCH ×2 (04:18→16:44)
[2022-12-10 04:57] LABS: HEMATOCRIT 38 % (33-45); HEMOGLOBIN 11.8 g/dL (11.5-14.8); LYMPHOCYTES # (AUTO) 0.2 K/uL (0.8-4.8); LYMPHOCYTES % (AUTO) 2.1 % (20.0-44.0); MEAN CORPUSCULAR HGB CONC 32 g/dl (31.0-36.0); MEAN CORPUSCULAR VOLUME 98 fL (82-100); MONOCYTES # (AUTO) 0.4 K/uL (0.1-1.30); MONOCYTES % (AUTO) 4.1 % (2.0-12.0); NEUTROPHILS # (AUTO) 8.2 K/uL (1.8-8.9); NEUTROPHILS % (AUTO) 93.8 % (43.0-81.0); PLATELET COUNT (AUTO) 254 K/uL (150-450); RED BLOOD CELL COUNT(AUTO) 3.83 MIL/uL (4.0-5.2); WHITE BLOOD COUNT (AUTO) 8.8 K/uL (4.3-11.0)
[2022-12-10 05:18] LABS: CALCIUM, SERUM 9.7 mg/dL (8.5-10.1); CREATININE 1.2 mg/dL (0.6-1.3); MAGNESIUM 2.5 mg/dL (1.8-2.4); PHOSPHORUS 4.7 mg/dL (2.5-4.9)
[2022-12-10 05:30] LABS: POTASSIUM 6.5 mmol/L (3.5-5.1)
[2022-12-10] MEDS ORDERED: SODIUM POLYSTYRENE SULFONATE 15 G/60 ML BOTTLE GT ONE (06:00)
--- NOTE | 2022-12-10 08:21 | NUR ---
VS TAKEN AND RECORDED; PT IN BED RESTING, CONTINUES ON NON-REBREATHER MASK. RESPONDS TO TACTILE STIMULUS. GT AND F/C IN PLACE.
--- NOTE | 2022-12-10 08:31 | NUR ---
DR KERN HOSPITALIST FOR TODAY
--- NOTE | 2022-12-10 08:34 | NUR ---
RT AT BEDSIDE
--- NOTE | 2022-12-10 08:53 | NUR ---
PT SEEN BY DR ALBERTO AT BEDSIDE. PER , PT WILL GO TO ICU ON BIPAP.
[2022-12-10] MEDS ORDERED: AMIODARONE HCL 200 MG TABLET PO SCH (09:00)
[2022-12-10] MEDS ORDERED: LEVOTHYROXINE SODIUM 112 MCG TABLET GT SCH (09:00)
--- NOTE | 2022-12-10 09:15 | NUR ---
RT PLACED PT ON BIPAP MACHINE
[2022-12-10] MEDS ORDERED: LEVOTHYROXINE SODIUM 100 MCG TABLET ONE (09:21)
[2022-12-10] MEDS ORDERED: ACETAMINOPHEN 325 MG TABLET ONE (09:21)
[2022-12-10] MEDS ORDERED: LEVOTHYROXINE SODIUM 25 MCG TABLET ONE (09:22)
[2022-12-10] MEDS ORDERED: PANTOPRAZOLE 40 MG/PACK PACK ONE (09:22)
[2022-12-10] MEDS ORDERED: AMIODARONE HCL 200 MG TABLET ONE (09:22)
[2022-12-10] MEDS: PANTOPRAZOLE 40 MG/PACK PACK GT SCH ×2 (09:30→17:15)
[2022-12-10] MEDS: ACETAMINOPHEN 325 MG TABLET MC SCH (09:30)
[2022-12-10] MEDS ORDERED: ENOXAPARIN SODIUM 40 MG/0.4 ML DISP.SYRIN SQ SCH (10:00)
[2022-12-10 10:12] LABS: CALCIUM, SERUM 9.8 mg/dL (8.5-10.1); CARBON DIOXIDE 31 mmol/L (21-32); CHLORIDE 96 mmol/L (98-107); CREATININE 1.5 mg/dL (0.6-1.3); GLUCOSE 162 mg/dL (74-106); SODIUM SERUM 133 mmol/L (136-145); UREA NITROGEN, BLOOD 72 mg/dL (7-18)
[2022-12-10] MEDS ORDERED: ENOXAPARIN SODIUM 40 MG/0.4 ML DISP.SYRIN SQ ONE (10:21)
[2022-12-10 10:23] LABS: T4 (THYROXINE) 9.4 ug/dL (4.7-13.3); THYROID STIMULATING HORMONE 1.052 uIU/mL (0.358-3.74)
[2022-12-10 10:28] LABS: POTASSIUM 6.4 mmol/L (3.5-5.1)
[2022-12-10] MEDS ORDERED: SODIUM POLYSTYRENE SULFONATE 15 G/60 ML BOTTLE ONE (10:47)
[2022-12-10] MEDS ORDERED: SODIUM POLYSTYRENE SULF. PWD 15 GM UDC PO ONE ×2 (11:00→20:00)
[2022-12-10] MEDS ORDERED: HYDROCORTISONE SOD SUCCINATE 100 MG/2 ML VIAL ONE (11:43)
[2022-12-10] MEDS: ALBUTEROL FS 2.5 MG/3 ML VIAL.NEB NEB SCH ×4 (12:15→23:53)
[2022-12-10] MEDS ORDERED: ALBUTEROL FS 2.5 MG/3 ML VIAL.NEB ONE (12:16)
--- NOTE | 2022-12-10 12:24 | NUR ---
RT AT BEDSIDE FOR BREATHING TX
--- NOTE | 2022-12-10 12:27 | NUR ---
ICU ROOM 262
--- NOTE | 2022-12-10 12:53 | NUR ---
BIPAP SETTINGS: IPAP-18, RATE-22, RISE-3, EPAP-8, O2-60%
--- NOTE | 2022-12-10 12:58 | NUR ---
MAY, COOKIE BREAKER, WILL CALL BACK FOR REPORT. ROOM BEING CLEANED.
--- NOTE | 2022-12-10 13:17 | NUR ---
PT REPORT GIVEN TO MAY, NURSING HOME ADMINISTRATOR
--- NOTE | 2022-12-10 13:27 | NUR ---
CALLED RT TO MOVE PT TO ICU
--- NOTE | 2022-12-10 13:45 | NUR ---
PT TRANSFERRED TO 262 VIA [facility] ACLS PROTOCOL, RT AT BEDSIDE. WARM HANDOFF GIVEN TO RN ASSIGNED.
--- NOTE | 2022-12-10 13:50 | NUR ---
RN NOTE RECEIVED REPORT FROM LINE DRIVER. PT IS ON BIPAP. PT IS NONVERBAL. PT IS ON BIPAP WITH ORDERED SETTINGS TOLERATING WELL. PT HAS IV ON R HAND AND LEFT HAND.IV PATENT, INTACT AND FLUSHING WELL. PT HAS PARKER CATHETHER IN PLACE. YI/RED COLOR DRAINING TO GRAVITY. ALL SAFETY MEASURES IN PLACE. CALL LIGHT WITHIN REACH. BED LOCKED AT LOWEST POSITION. SIDE RAILS UP X2. BED ALARM ON. PT HAS DISCOLORATION THROUGHOUT BODY. HEAD OF BED ELEVATED AT ALL TIMES. ALL SAFETY MEASURES IN PLACE. BED LOCKED AT LOWEST POSITION. SIDE RAILS UP X2. BED ALARM ON
[2022-12-10 16:02] LABS: CARBON DIOXIDE 30 mmol/L (21-32); CHLORIDE 96 mmol/L (98-107); CREATININE 1.6 mg/dL (0.6-1.3); GLUCOSE 143 mg/dL (74-106); SODIUM SERUM 133 mmol/L (136-145); UREA NITROGEN, BLOOD 69 mg/dL (7-18)
[2022-12-10 16:07] LABS: POTASSIUM 6.2 mmol/L (3.5-5.1)
[2022-12-10] MEDS ORDERED: JEVITY 1.2 CAL 1,000 ML BOTTLE GT PRN ×3 (16:30→17:00)
--- NOTE | 2022-12-10 18:57 | NUR ---
RN NOTE PT ASPIRATED > [address] KERN NOTIFIED[address] SAID TO RT SUCTION. PT IS CONNECTED TO GASTRIC SUCTION. ASKED DR. KERN IF PT CAN BE NPO AND HOLD TUBE FEEDING. OKAY TO HOLD. ORDERS NOTED AND CARRIED OUT
--- NOTE | 2022-12-10 19:30 | NUR ---
RN OPENING NOTE RECEIVED PT IN BED, ASLEEP. CURRENTLY ON BIPAP, TOLERATING SETTINGS WELL. O2 SAT @ >95%. PT IS NONVERBAL AND GRUNTS ONLY AT TIMES, PER RN MAY. NO S/SX OF ACUTE RESPI DISTRESS NOTED AT THIS TIME. PT HAS IV ON R HAND AND LEFT HAND. BOTH PATENT, INTACT AND FLUSHING WELL, INFUSING NS @ 75 CC/HR. PARKER CATH IN PLACE, DRAINING URINE BY GRAVITY. ALL SAFETY MEASURES IN PLACE. CALL LIGHT WITHIN REACH. BED LOCKED AT LOWEST POSITION. SIDE RAILS UP X2. BED ALARM ON. WILL CONT TO MONITOR PT.
[2022-12-10 19:54] LABS: BILIRUBIN,URINE 2+ (NEGATIVE); COLOR,URINE YELLOW (YELLOW); LEUKOCYTE ESTERASE ,URINE TRACE (NEGATIVE); NITRITE, URINE POSITIVE (NEGATIVE); PH,URINE 8.5 (5.0-8.0); PROTEIN,URINE 3+ mg/dl (NEGATIVE); UGLUCOSE NEGATIVE (NEGATIVE)
[2022-12-10 20:13] LABS: RBC,URINE 21-50 /HPF (0-2)
[2022-12-10 20:14] LABS: BACTERIA,URINE 1+ /HPF (None Seen); SQUAMOUS EPITHELIAL CELL,UR 0-2 /HPF (None Seen); TRIPLE PHOSPHATE CRYSTAL,UR Moderate /HPF (None Seen); URINE AMORPHOUS PHOSPHATES Few /HPF (None Seen)
--- NOTE | 2022-12-10 21:02 | NUR ---
RN CLOSING NOTE PT ON NONVERBAL AND IN BED. PT ON PULMONARY FUNCTION TECHNOLOGIST CURRENTLY READING SR WITH BBB AT THIS TIME. HOB ELEVATED AT ALL TIMES. PT ON BIPAP WITH ORDERED SETTINGS TOLERATING WELL. PT HAS IV ON R HAND AND L HAND. IV PATENT, INTACT, AND FLUSHING WELL. PT PARKER CATHETER IN PLACE. YI/RED COLOR DRAINING TO GRAVITY. ALL SAFETY MEASURES IN PLACE . BED LOCKED AT LOWEST POSITION. SIDE RAILS UP X2. BED ALARM ON. PT HAS DISCOLORATION THROUGHOUT BODY. TURNED AND REPOSITIONED. ENDORSED TO CORN HUSKER MACHINE OPERATOR RN FOR CONTUITY OF CARE.
--- NOTE | 2022-12-10 21:14 | NUR ---
RN NOTE WOUND CARE PICTURES TAKEN AND PLACED IN CHART
[2022-12-10] MEDS: QUETIAPINE FUMARATE 25 MG TABLET GT SCH (22:00)
[2022-12-11] VITALS (25 sets, daily range): BP systolic 114–160; BP diastolic 71–91
[2022-12-11] MEDS: ALBUTEROL FS 2.5 MG/3 ML VIAL.NEB NEB SCH ×6 (04:29→23:37)
[2022-12-11] MEDS: IPRATROPIUM NEB FS 0.5 MG/2.5 ML AMPUL.NEB NEB SCH ×6 (04:29→23:37)
[2022-12-11 05:00] LABS: BASOPHILS % (AUTO) 0.3 % (0.0-2.0); HEMATOCRIT 35 % (33-45); HEMOGLOBIN 11.1 g/dL (11.5-14.8); LYMPHOCYTES # (AUTO) 0.1 K/uL (0.8-4.8); LYMPHOCYTES % (AUTO) 0.9 % (20.0-44.0); MEAN CORPUSCULAR HGB CONC 32 g/dl (31.0-36.0); MEAN CORPUSCULAR VOLUME 98 fL (82-100); MONOCYTES # (AUTO) 0.3 K/uL (0.1-1.30); MONOCYTES % (AUTO) 2.9 % (2.0-12.0); NEUTROPHILS # (AUTO) 9.7 K/uL (1.8-8.9); NEUTROPHILS % (AUTO) 95.9 % (43.0-81.0); PLATELET COUNT (AUTO) 261 K/uL (150-450); RED BLOOD CELL COUNT(AUTO) 3.62 MIL/uL (4.0-5.2); WHITE BLOOD COUNT (AUTO) 10.1 K/uL (4.3-11.0)
[2022-12-11 05:22] LABS: CALCIUM, SERUM 9.5 mg/dL (8.5-10.1); CARBON DIOXIDE 30 mmol/L (21-32); CHLORIDE 96 mmol/L (98-107); CREATININE 2.2 mg/dL (0.6-1.3); GLUCOSE 157 mg/dL (74-106); MAGNESIUM 2.7 mg/dL (1.8-2.4); PHOSPHORUS 4.8 mg/dL (2.5-4.9); SODIUM SERUM 136 mmol/L (136-145)
[2022-12-11] MEDS: methylPREDNISolone SOD SUCC 40 MG/ML VIAL IV SCH ×3 (05:25→17:07)
[2022-12-11] MEDS: ZOSYN IVPB 3.375 G in IV D5W 50ml IV SCH (05:25)
[2022-12-11] MEDS: IV NS 0.9% 1,000 ML IV SCH ×2 (05:37→18:50)
[2022-12-11 05:40] LABS: UREA NITROGEN, BLOOD 90 mg/dL (7-18)
[2022-12-11 06:09] LABS: ABG BASE EXCESS 5.7 mmol/L; ABG OXYGEN SATURATION 98.8 % (92.0-98.5); ABG PCO2 37.3 mmHg (35.0-45.0); ABG PH 7.508 (7.350-7.450); ABG PO2 114.8 mmHg (75.0-100.0); COHb 0.8 % (0.5-1.5); MetHb 0.1 % (0.0-1.5); O2Hb 97.9 % (94.0-97.0); SITE, ABG Left Radial; VENT MODE, BG ST 18/8 60% 22
--- NOTE | 2022-12-11 06:21 | NUR ---
RN NOTE PT STILL ON BIPAP, TOLERATING WELL. ALL DUE MEDS GIVEN. NEEDS ATTENDED TO. PM CARE DONE. TURNED AND REPOSITIONED. WILL ENDORSE TO AM SHIFT NURSE FOR MAYE.
--- NOTE | 2022-12-11 07:10 | NUR ---
RN OPENING NOTES. RECEIVED REPORT FROM NIGHTSRIFT SHABANA PINEDA. PATIENT REMAINS IN BED ON BIPAP. PATIENT TOLERATING SETTINGS WELL, CURRENT OXYGEN SATURATION AT 100%. PATIENT SINUS TACHYCARDIC AT THIS TIME WITH HEART RATE AT 102 BEATS PER MINUTE. PATIENT NONVERBAL. PARKER CATHETER DRAINING VERY LITTLE OUTPUT. SKIN INTACT. IV ACCESS ON LEFT FOREARM AND RIGHT HAND. BOTH ACCESS' FLUSHING EASILY WITHOUT RESISTANCE. IV FLUIDS RUNNING ORDERED. PATIENT HAS PEG TUBE, FEEDINGS HELD AT THIS TIME DUE TO PATIENT ASPIRATION YESTERDAY. SAFETY MEASURES IMPLEMENTED WILL CONTINUE PLAN OF CARE AND ANTICIPATE NEEDS.
[2022-12-11] MEDS: LEVOTHYROXINE SODIUM 125 MCG TABLET GT SCH (07:16)
--- NOTE | 2022-12-11 08:00 | NUR ---
RECEIVED VERBAL ORDER FROM DOCTOR KERN. OKAY TO RESUME TUBE FEEDINGS AT RATE OF 20 MLS/HR AND PROGRESS TO GOAL OF 50 MLS/HR. WILL CARRY ORDER OUT.
[2022-12-11] MEDS: PANTOPRAZOLE 40 MG/PACK PACK GT SCH ×2 (08:06→17:07)
[2022-12-11] MEDS: ACETAMINOPHEN 325 MG TABLET MC SCH (08:06)
[2022-12-11] MEDS: AMIODARONE HCL 200 MG TABLET GT SCH (08:07)
[2022-12-11] MEDS: ENOXAPARIN SODIUM 30 MG/0.3 ML DISP.SYRIN SQ SCH (08:07)
--- NOTE | 2022-12-11 09:30 | NUR ---
PATIENT WAS NOTED TO HAVE VAGINAL BLEEDING. DR KERN NOTIFIED. GAVE ORDER FOR STAT H/H AND PELVIC ULTRASOUND. ORDERS INPUTTED. WILL CONTINUE PLAN OF CARE.
--- NOTE | 2022-12-11 10:03 | NUR ---
WOUND CARE CONSULT: PT PRESENTS WITH SACRAL DEEP TISSUE INJURY WHICH IS IN EVOLUTION, MULTIPLE AREAS OF SKIN DISCOLORATION INCLUDING UPPER EXTREMITIES AND RT LOWER BACK AREA, ALL PRESENT ON ADMISSION. RECOMMENDATIONS MADE FOR SKIN PROTECTION. DISCUSSED WITH NURSING STAFF. PT IS ON MIRTA ISOFLEX LOW AIRLOSS BED. DR HICKS NOTIFIED OF SURGICAL CONSULT. IN AGREEMENT WITH PLAN OF CARE.
[2022-12-11 10:19] LABS: HEMOGLOBIN 10.9 g/dL (11.5-14.8)
[2022-12-11] MEDS: ZOSYN IVPB 2.25 G in IV D5W 50ml IV SCH ×2 (11:49→17:07)
[2022-12-11] MEDS: PROSOURCE / PROSTAT (PYXIS) 30 ML UDC GT SCH ×2 (15:33→17:07)
--- NOTE | 2022-12-11 19:09 | NUR ---
HANDOFF REPORT GIVEN TO CELINA DONALD FOR CONTINUATION OF CARE.
--- NOTE | 2022-12-11 19:17 | NUR ---
RN OPENING NOTES. RECEIVED PATIENT SLEEPING IN BED, NON-VERBAL, ON BIPAP. PATIENT TOLERATING SETTINGS WELL, NO RESPIRATORY DISTRESS NOTED. PATIENT SINUS TACHYCARDIC AT THIS TIME WITH HEART RATE AT 107 BEATS PER MINUTE. PATIENT NONVERBAL. PARKER CATHETER DRAINING BLOODY COLORED URINE. SKIN INTACT. IV ACCESS ON LEFT FOREARM AND RIGHT HAND. BOTH ACCESS' FLUSHING EASILY WITHOUT RESISTANCE. IV FLUIDS RUNNING ORDERED. PATIENT HAS PEG TUBE, WITH FEEDING OF JEVITY AT 20 ML/HR. SAFETY MEASURES IMPLEMENTED, WILL CONTINUE TO MONITOR THROUGHOUT THE SHIFT.
[2022-12-11 20:10] LABS: BASOPHILS % (AUTO) 0.2 % (0.0-2.0); HEMATOCRIT 35 % (33-45); HEMOGLOBIN 11.2 g/dL (11.5-14.8); LYMPHOCYTES # (AUTO) 0.1 K/uL (0.8-4.8); LYMPHOCYTES % (AUTO) 0.9 % (20.0-44.0); MEAN CORPUSCULAR HGB CONC 32 g/dl (31.0-36.0); MEAN CORPUSCULAR VOLUME 97 fL (82-100); MONOCYTES # (AUTO) 0.3 K/uL (0.1-1.30); MONOCYTES % (AUTO) 2.2 % (2.0-12.0); NEUTROPHILS # (AUTO) 11.5 K/uL (1.8-8.9); NEUTROPHILS % (AUTO) 96.7 % (43.0-81.0); PLATELET COUNT (AUTO) 234 K/uL (150-450); RED BLOOD CELL COUNT(AUTO) 3.63 MIL/uL (4.0-5.2); WHITE BLOOD COUNT (AUTO) 11.9 K/uL (4.3-11.0)
--- NOTE | 2022-12-11 20:45 | NUR ---
RN NOTE PT VOMITED AROUND 50 CC STOMACH CONTENT, ZOFRAN GIVEN PRN MEDS. INFORMED MAT MACHINE TENDER CESILIA. ORDERED TO HELD FEEDING, PLACED PT ON NC AT 4LPM TOLERATING WELL SATING 99%. WILL CONTINUE TO MONITOR.
[2022-12-11] MEDS: QUETIAPINE FUMARATE 25 MG TABLET GT SCH (21:02)
--- NOTE | 2022-12-11 22:30 | NUR ---
RN NOTE NOTIFIED MD ABOUT PT NOTED WITH GROSSLY HEMATURIC URINE WITH SOME BLOOD CLOTS, OUTPUT OF 250 CC. LATEST H&H IS .. NNO AT THIS TIME. WILL CONT TO MONITOR.
[2022-12-12] VITALS (24 sets, daily range): BP systolic 101–156; BP diastolic 62–91
[2022-12-12] MEDS: ZOSYN IVPB 2.25 G in IV D5W 50ml IV SCH ×5 (00:03→23:20)
[2022-12-12] MEDS: methylPREDNISolone SOD SUCC 40 MG/ML VIAL IV SCH ×5 (00:04→23:20)
--- NOTE | 2022-12-12 01:52 | NUR ---
RN NOTE NOTED PT HR AT 151 BPM AND BP AT 152/82. NOTIFIED FENCE SUPERVISOR . STAT ABG RESULT RELAYED TO 0250 ORDERED CARDIZEM 5 MG IV. ORDER TAKEN AN CARRIED OUT. WILL CONT TO MONITOR.
[2022-12-12] MEDS ORDERED: DILTIAZEM HCL 25 MG IV IV ONE (03:00)
[2022-12-12] MEDS: ALBUTEROL FS 2.5 MG/3 ML VIAL.NEB NEB SCH ×8 (03:30→23:20)
--- NOTE | 2022-12-12 03:57 | NUR ---
RN NOTE UPDATED MD ABOUT PT HR STILL AT 130'S AND BP AT 104/65. MD ORDERED ANOTHER DOSE OF CARDIZEM 5 MG IV. ORDER TAKEN AND CARRIED OUT. WILL CONT TO MONITOR.
[2022-12-12] MEDS ORDERED: DILTIAZEM HCL 50 MG IV IV ONE (04:20)
[2022-12-12] MEDS: IV NS 0.9% 1,000 ML IV SCH ×2 (05:20→16:46)
[2022-12-12] MEDS: IPRATROPIUM NEB FS 0.5 MG/2.5 ML AMPUL.NEB NEB SCH ×7 (05:28→23:20)
--- NOTE | 2022-12-12 06:23 | NUR ---
RN CLOSING NOTES. PATIENT REMAINS IN BED, NON-VERBAL, STILL ON BIPAP. TOLERATING SETTINGS WELL FIO2 AT 40%, NO RESPIRATORY DISTRESS NOTED. PATIENT SINUS TACHYCARDIC AT THIS TIME WITH HEART RATE AT 125 BPM. PATIENT NONVERBAL. PARKER CATHETER DRAINING HEMATURIA. IV ACCESS ON LEFT FOREARM AND RIGHT HAND. BOTH ACCESS' FLUSHING EASILY WITHOUT RESISTANCE. IV FLUIDS RUNNING ORDERED. PATIENT HAS PEG TUBE, FEEDING HELD DUE TO RISK OF ASPIRATION. ALL DUE MEDS GIVEN, KEPT DRY AND CLEAN, SAFETY MEASURES IMPLEMENTED, WILL ENDORSE TO AM SHIFT NURSE FOR CONTINUITY OF CARE.
--- NOTE | 2022-12-12 07:15 | NUR ---
SENIOR IT SECURITY ANALYST NOTE RECEIVED PATIENT IN BED RESTING,NONVERBAL,EYE CLOSED,NPO, HR 140-147,IV SITE IS ON RIGHT HAND AND LEFT FOREARM INTACT,ON IV HYDRATION,NS 75CC/HR,G-TUBE IN PLACE, NO USE FOR FEEDING ON LOW INTERMITTED SUCTIONING,PARKER CATH IN PLACE URINE DRAINING,BY GRAVITY,URINE CLOUDY,SAFETY MEASURE IMPLEMENT,BED IN LOW POSITION AND LOCKED,HEAD OF THE BED ELEVATED CONTINUE TO MONITOR.
[2022-12-12] MEDS: LEVOTHYROXINE SODIUM 125 MCG TABLET GT SCH (07:30)
[2022-12-12] MEDS: AMIODARONE HCL 200 MG TABLET GT SCH (07:47)
[2022-12-12 07:48] LABS: BASOPHILS % (AUTO) 0.1 % (0.0-2.0); HEMATOCRIT 32 % (33-45); HEMOGLOBIN 10.1 g/dL (11.5-14.8); LYMPHOCYTES # (AUTO) 0.2 K/uL (0.8-4.8); LYMPHOCYTES % (AUTO) 1.5 % (20.0-44.0); MEAN CORPUSCULAR HGB CONC 31 g/dl (31.0-36.0); MEAN CORPUSCULAR VOLUME 96 fL (82-100); MONOCYTES # (AUTO) 0.3 K/uL (0.1-1.30); MONOCYTES % (AUTO) 2.5 % (2.0-12.0); NEUTROPHILS # (AUTO) 10.7 K/uL (1.8-8.9); NEUTROPHILS % (AUTO) 95.9 % (43.0-81.0); PLATELET COUNT (AUTO) 250 K/uL (150-450); RED BLOOD CELL COUNT(AUTO) 3.36 MIL/uL (4.0-5.2); WHITE BLOOD COUNT (AUTO) 11.2 K/uL (4.3-11.0)
[2022-12-12 07:57] LABS: CALCIUM, SERUM 9.4 mg/dL (8.5-10.1); CHLORIDE 99 mmol/L (98-107); CREATININE 1.5 mg/dL (0.6-1.3); GLUCOSE 156 mg/dL (74-106); POTASSIUM 2.9 mmol/L (3.5-5.1); SODIUM SERUM 148 mmol/L (136-145); UREA NITROGEN, BLOOD 73 mg/dL (7-18)
[2022-12-12 08:05] LABS: CARBON DIOXIDE 41 mmol/L (21-32)
[2022-12-12] MEDS: POTASSIUM CL. PREMIX PERIPHER. 50 ML IV SCH ×5 (08:52→13:01)
[2022-12-12] MEDS: PROSOURCE / PROSTAT (PYXIS) 30 ML UDC GT SCH ×2 (09:00→17:00)
[2022-12-12] MEDS: ACETAMINOPHEN 325 MG TABLET MC SCH (09:00)
[2022-12-12] MEDS: POTASSIUM CHLORIDE 20 MEQ POWDER PACKET NG SCH ×2 (09:25→10:51)
[2022-12-12] MEDS: PANTOPRAZOLE 40 MG/PACK PACK GT SCH ×2 (09:25→17:00)
[2022-12-12] MEDS: ENOXAPARIN SODIUM 30 MG/0.3 ML DISP.SYRIN SQ SCH (09:26)
[2022-12-12 10:02] LABS: ABG BASE EXCESS 15.2 mmol/L; ABG OXYGEN SATURATION 93.1 % (92.0-98.5); ABG PCO2 54.5 mmHg (35.0-45.0); ABG PO2 68.5 mmHg (75.0-100.0); AaDO2 66.8 mmHg; COHb 0.6 % (0.5-1.5); MetHb 0.1 % (0.0-1.5); O2Hb 92.4 % (94.0-97.0); SITE, ABG Right Radial; VENT MODE, BG 2LPM NC
[2022-12-12] MEDS: DIGOXIN INJ 0.5 MG/2 ML AMPUL IV SCH ×3 (11:47→23:20)
--- NOTE | 2022-12-12 12:00 | NUR ---
RN NOTE ALL PO MEDS HOLD DUE TO G-TUBE SITE ON CONTINUES SUCTIONING,CONTINUE TO MONITOR.
[2022-12-12] MEDS: PANTOPRAZOLE 40 MG VIAL IV SCH (17:04)
--- NOTE | 2022-12-12 19:01 | NUR ---
RN NOTE PATIENT REMAINS ON NONVERBAL ENCLOSED ON BIPAP, SETTING PRESCRIBED,O2:88%-96%,ON IV HYDRATION NS 125CC/HR HR 109-112,PARKER CATH IN PLACE,KEPT CLEAN AND DRY ALL THE TIME,TURNED AND REPOSITIONED EVERY 2 HOURS,KEPT HEAD OF THE BED ELEVATED ALL THE TIME,KEPT COMFORTABLE,ENDORSE NEXT COMING SHIFT FOR CONTINUATION OF CARE.
--- NOTE | 2022-12-12 19:54 | NUR ---
RCVD PT ON BIPAP 18/5 ,RESP RATE 22 FIO2 40% , BIPAP SETTINGS CHANGED TO 15/5 PER MD'S ORDER. RN NEGRITO NOTIFIED, NO RESPIRATORY DISTRESS NOTED AT THIS TIME Q4 BREATHING TX GIVEN .WILL CONTINUE TO MONITOR T/O SHIFT.
--- NOTE | 2022-12-12 20:00 | NUR ---
Received patient non verbal non interactive with eyes closed.ST 110-115.On BIPAP 15/5, Rate 22,FIO2 40%.No acute distress noted.Patient NPO with GT to LCS.FC to gravity.No acute ditress noted. Turned and repositioned to comfort offloading pressure points.IVF infusing to MARGARITA ML and site intact.Safety precaution maintained.Call light at bedside within easy reach.Continue monitoring.
[2022-12-12] MEDS: QUETIAPINE FUMARATE 25 MG TABLET GT SCH (21:19)
[2022-12-12] MEDS ORDERED: acetaZOLAMIDE SODIUM 500 MG/VIAL VIAL IV STA (23:49)
[2022-12-13] VITALS (24 sets, daily range): BP systolic 103–152; BP diastolic 52–82
[2022-12-13] MEDS: IV 1/2NS 1000 ML 1,000 ML IV SCH ×2 (01:27→17:07)
[2022-12-13] MEDS: IPRATROPIUM NEB FS 0.5 MG/2.5 ML AMPUL.NEB NEB SCH ×6 (02:58→22:57)
[2022-12-13] MEDS: ALBUTEROL FS 2.5 MG/3 ML VIAL.NEB NEB SCH ×6 (02:58→22:57)
[2022-12-13 04:26] LABS: CALCIUM, SERUM 8.7 mg/dL (8.5-10.1); CREATININE 0.9 mg/dL (0.6-1.3); POTASSIUM 3.6 mmol/L (3.5-5.1)
[2022-12-13] MEDS ORDERED: acetaZOLAMIDE SODIUM 500 MG/VIAL VIAL ONE (04:48)
[2022-12-13 04:58] LABS: BASOPHILS % (AUTO) 0.1 % (0.0-2.0); EOSINOPHILS % (AUTO) 0.2 % (0.0-6.0); HEMATOCRIT 28 % (33-45); HEMOGLOBIN 8.4 g/dL (11.5-14.8); LYMPHOCYTES # (AUTO) 0.2 K/uL (0.8-4.8); LYMPHOCYTES % (AUTO) 1.9 % (20.0-44.0); MEAN CORPUSCULAR HGB CONC 30 g/dl (31.0-36.0); MEAN CORPUSCULAR VOLUME 103 fL (82-100); MONOCYTES # (AUTO) 0.2 K/uL (0.1-1.30); MONOCYTES % (AUTO) 2.4 % (2.0-12.0); NEUTROPHILS # (AUTO) 8.2 K/uL (1.8-8.9); NEUTROPHILS % (AUTO) 95.4 % (43.0-81.0); PLATELET COUNT (AUTO) 188 K/uL (150-450); RED BLOOD CELL COUNT(AUTO) 2.71 MIL/uL (4.0-5.2); WHITE BLOOD COUNT (AUTO) 8.6 K/uL (4.3-11.0)
[2022-12-13] MEDS: ZOSYN IVPB 2.25 G in IV D5W 50ml IV SCH ×3 (05:21→17:32)
[2022-12-13] MEDS: methylPREDNISolone SOD SUCC 40 MG/ML VIAL IV SCH ×3 (05:22→17:32)
--- NOTE | 2022-12-13 06:15 | NUR ---
Patient resting in no acute distress.VS remains stable.Tolerating BIPAP settings.SR with BBB with in and out Afib controlled.AM care done.Urine output adequte no bm noted during the night.IVF infusing well.GT to LIS with minimal output.No vomiting noted.Turned and repositioned. Kept comfortable.
--- NOTE | 2022-12-13 07:30 | NUR ---
RN note Received patient in bed. Not in respiratory distress with Bipap use. cardiac monitor showed SR with HR 93/min. Bp 143/60mmHg. Spo2 99% with FiO2 0.4. G-tube is connected to suction for intermittent suction, nil drainge so far. Perdue is in place, draining pink urine with small blood clots. Call muniz is placed within reach. Bed is locked and placed in the lowest position. Will continue monitoring and care.
[2022-12-13 08:20] LABS: BASOPHILS % (MANUAL) 0 % (0.0-2.0); EOSINOPHILS % (MANUAL) 0 % (0-4); LYMPHOCYTES % (MANUAL) 5 % (16-48); MONOCYTES % (MANUAL) 2 % (0-11.0); NEUTROPHILS % (MANUAL) 93 (42-76)
--- NOTE | 2022-12-13 09:09 | NUR ---
RN note RT Gutierrez has switched from Bipap to 2L oxygen via NC for patient at 0830. HR 88/min, Spo2 97%, RR 23/min. Keep observation.
[2022-12-13] MEDS: LEVOTHYROXINE SODIUM 125 MCG TABLET GT SCH (09:39)
[2022-12-13] MEDS: ACETAMINOPHEN 325 MG TABLET MC SCH (09:39)
[2022-12-13] MEDS: AMIODARONE HCL 200 MG TABLET GT SCH (09:40)
[2022-12-13] MEDS: PANTOPRAZOLE 40 MG VIAL IV SCH ×2 (09:40→17:35)
[2022-12-13] MEDS: ENOXAPARIN SODIUM 30 MG/0.3 ML DISP.SYRIN SQ SCH (09:46)
[2022-12-13] MEDS: PROSOURCE / PROSTAT (PYXIS) 30 ML UDC GT SCH ×2 (10:32→17:34)
--- NOTE | 2022-12-13 11:14 | NUR ---
RN note Patient tolerated 2L via NC well. HR 85-90/min, Spo2 >95% with RR 20/min. Contacted radiology colleague Liam that patient is safe to go to the department for small bowel follow through. Await further arragenement.
--- NOTE | 2022-12-13 18:52 | NUR ---
RN note Patient tolerated 2L oxygen via NC really well. No respiratory distress. pvc monitor showed SR with HR <95/min all along. Vital signs are stable. Collected 790mL pink urine and 250mL greenish fluid from hightower and G-tube respectively. Continue monitoring and care.
--- NOTE | 2022-12-13 19:15 | NUR ---
RN OPENING NOTES RECEIVED PATIENT ON BED, AWAKE, NON-VERBAL. ON NASAL CAULA @ 2LPM, SATING AT 98%. RESPIRATORY EVEN AND UNLABORED NO SOB NOTED. NOTED WITH MARGARITA MID LINE. FLUSHED WITH NS. RUNNING WITH 1/2 NS @ 75 ML/HR. NOTED WITH GT PATENT AND INTACT, VERIFIED PLACEMENT BY AUSCULTATION, CONNECTED TO LOW INTERMITTENT SUCTION. PARKER CATHETER PATENT INTACT DRAINING WITH RED COLORED URINE VIA GRAVITY. ALL SAFETY PRECAUTION PROVIDED. BED IN LOWEST POSITION, LOCKED. CALL LIGHT WITH IN REACH.
--- NOTE | 2022-12-13 22:00 | NUR ---
RN NOTES UPON DOING ADL'S PATIENT NOTED WITH RIGHT HEEL REDNESS SIZE 2.0CM X 3.0CM X UTD, NON BLANCHABLE. NO DRAINAGE NOTED, PICTURE TAKEN AND PLACED IN PATIENT'S CHART. INITIAL TREATMENT DONE, CONTINUE TO OFF LOAD AND REPOSITION Q2H.
[2022-12-13] MEDS: QUETIAPINE FUMARATE 25 MG TABLET GT SCH (22:57)
[2022-12-14] VITALS (19 sets, daily range): BP systolic 104–141; BP diastolic 33–80
[2022-12-14] MEDS: ZOSYN IVPB 2.25 G in IV D5W 50ml IV SCH ×4 (00:57→17:09)
[2022-12-14] MEDS: methylPREDNISolone SOD SUCC 40 MG/ML VIAL IV SCH ×4 (00:58→17:09)
[2022-12-14] MEDS: ALBUTEROL FS 2.5 MG/3 ML VIAL.NEB NEB SCH ×6 (03:30→23:13)
[2022-12-14] MEDS: IPRATROPIUM NEB FS 0.5 MG/2.5 ML AMPUL.NEB NEB SCH ×6 (03:30→23:12)
[2022-12-14] MEDS: IV 1/2NS 1000 ML 1,000 ML IV SCH ×2 (03:34→16:03)
[2022-12-14 04:46] LABS: HEMATOCRIT 27 % (33-45); HEMOGLOBIN 8.7 g/dL (11.5-14.8); LYMPHOCYTES # (AUTO) 0.1 K/uL (0.8-4.8); LYMPHOCYTES % (AUTO) 2.3 % (20.0-44.0); MEAN CORPUSCULAR HGB CONC 32 g/dl (31.0-36.0); MEAN CORPUSCULAR VOLUME 98 fL (82-100); MONOCYTES # (AUTO) 0.1 K/uL (0.1-1.30); NEUTROPHILS # (AUTO) 5.9 K/uL (1.8-8.9); NEUTROPHILS % (AUTO) 95.7 % (43.0-81.0); PLATELET COUNT (AUTO) 196 K/uL (150-450); RED BLOOD CELL COUNT(AUTO) 2.81 MIL/uL (4.0-5.2); WHITE BLOOD COUNT (AUTO) 6.2 K/uL (4.3-11.0)
[2022-12-14 05:01] LABS: CALCIUM, SERUM 8.9 mg/dL (8.5-10.1); CREATININE 0.8 mg/dL (0.6-1.3)
[2022-12-14 05:06] LABS: POTASSIUM 2.3 mmol/L (3.5-5.1)
--- NOTE | 2022-12-14 05:30 | NUR ---
RN NOTES NOTIFIED SENIOR ENERGY CONSULTANT CESILIA ALVAREZ REGARDING PATIENT LATEST POTASSIUM- 2.3 WITH NEW ORDER KCL 80 MEQ IV NOTED AND CARRIED OUT.
[2022-12-14] MEDS: POTASSIUM CL. PREMIX PERIPHER. 50 ML IV SCH ×8 (05:59→13:47)
--- NOTE | 2022-12-14 07:26 | NUR ---
RN Note Received patient in bed. Opened her eyes upon calling her name, self-muttering. No respiratory distress was observed. immigration services officer showed SR HR 80/min. Spo2 100% with Fio2 0.4 via Bipap. IV sites over right UA (ML), right hand and left hand are intact and patent. Continue intermittent suction of NGT, with a daily output of 400mL yesterday. Call muniz is placed within reach. Bed is locked and placed in the lowest position. All safety measures have been implemented. Will continue monitoring and care.
[2022-12-14] MEDS: LEVOTHYROXINE SODIUM 125 MCG TABLET GT SCH (07:40)
--- NOTE | 2022-12-14 08:15 | NUR ---
RN note RT gopal switched Bipap to 2L oxygen given via nasal cannula. Patient tolerated well with Spo2 99%, RR 15/min. Keep OBservation.
[2022-12-14] MEDS: PANTOPRAZOLE 40 MG VIAL IV SCH ×2 (08:44→17:09)
[2022-12-14] MEDS: ACETAMINOPHEN 325 MG TABLET MC SCH (08:44)
[2022-12-14] MEDS: AMIODARONE HCL 200 MG TABLET GT SCH (08:44)
[2022-12-14] MEDS: ENOXAPARIN SODIUM 30 MG/0.3 ML DISP.SYRIN SQ SCH (08:45)
[2022-12-14] MEDS: PROSOURCE / PROSTAT (PYXIS) 30 ML UDC GT SCH ×2 (08:46→17:09)
[2022-12-14 08:52] LABS: PHOSPHORUS 2.7 mg/dL (2.5-4.9)
[2022-12-14] MEDS ORDERED: POTASSIUM CHLORIDE 20 MEQ POWDER PACKET NG SCH (09:00)
--- NOTE | 2022-12-14 10:09 | NUR ---
RN note Clarified with Dr. De Guzman about the dosage of KCL adminsitered as 80mEq IV KCl has been prescribed overnight. He said to administer a total of 100mEq KCl for patient's hypokalemia. Will follow.
--- NOTE | 2022-12-14 10:48 | NUR ---
Rn note Patient tolerated 2L oxygen well. Reduce oxygen to 1L, SpO2 95%, RR 15/min. Keep observation.
[2022-12-14 17:05] LABS: CALCIUM, SERUM 8.9 mg/dL (8.5-10.1); CREATININE 0.7 mg/dL (0.6-1.3)
[2022-12-14 17:26] LABS: POTASSIUM 2.4 mmol/L (3.5-5.1)
--- NOTE | 2022-12-14 17:33 | NUR ---
RN note Got a critical result from lab about hypokalemia, 2.4mmol/L after 100mEq KCl replacement. Informed Dr. Schumacher, who ordered KCl drip at 75mL/hr. Await medication.
--- NOTE | 2022-12-14 18:30 | NUR ---
FLORIST NOTES RECEIVED PATIENT FROM ICU ENDORSED BY SHABANA HOFFMAN VIA HOSPITAL BED. PATIENT IS AWAKE AND A/O X1. ON ROOM O2 AT 2LPM VIA NASAL CANNULA TOLERATING WELL. NO SOB NOTED. NOT IN DISTRESS. WITH IV ACCESS AT THE RIGHT UPPER ARM MIDLINE, STARTED IVF 20MEQ KCL IN 1/2NS AT 75ML/HR. ON TELE MONITOR CURRENTLY READING SINUS RHYTHM AT 99BPM. WITH G-TUBE IN PLACED FOR GASTRIC INTERMITTENT SUCTIONING AND MEDICATION ADMINISTRATION. SAFETY MEASURES MEASURES IN PLACED. CALL LIGHT WITHIN REACH. BED ON LOWEST LOCKED POSITION, SIDE RAILS UP X2. WILL ENDORSE TO NEXT SHIFT FOR MAYE.
--- NOTE | 2022-12-14 18:30 | NUR ---
RN note Trasnferred patient to [facility]. Handover is given to SHABANA Cortez. ekg monitor tech showed SR all along.
--- NOTE | 2022-12-14 19:32 | NUR ---
RN OPENING NOTE PT A&OX1 AND RESPONDS TO NAME. PT MUMBLING INCOHERENTLY. SPEECH IS GARBLED. STATES THAT SHE IS SOB AND PLACED BACK ON 3 LPM NC. SKIN IS PINK AND DRY. MARGARITA MIDLINE INTACT AND RUNNING 20 MEQ KCL IN 1/2 NS AT 75 ML/HR. GTUBE SECURED AND PARKER INTACT AND DRAINING APPROPRIATELY. DENIES PAIN AND OTHER NEEDS AT THIS TIME. BED LOCKED AND AT LOWEST LEVEL WITH 2 RAILS UP. CALL LIGHT WITHIN REACH.
--- NOTE | 2022-12-14 20:02 | NUR ---
RCVD PT ON ROOM AIR. PLACED PT ON NOC BIPAP 15/5, RR 22, FIO2 40%. Q4 BREATHING TX GIVEN, NO ADVERSE REACTION NOTED. NO RESPIRATORY DISTRESS NOTED AT THIS TIME . WILL CONTINUE TO MONITOR T/O SHIFT.
[2022-12-14] MEDS: QUETIAPINE FUMARATE 25 MG TABLET GT SCH (21:32)
[2022-12-14] MEDS: THERAHONEY GEL 1.5 OZ TUBE TP SCH (21:46)
[2022-12-15] VITALS: BP 146/84
[2022-12-15] MEDS: methylPREDNISolone SOD SUCC 40 MG/ML VIAL IV SCH ×4 (00:52→17:16)
[2022-12-15] MEDS: ZOSYN IVPB 2.25 G in IV D5W 50ml IV SCH ×2 (00:52→05:42)
[2022-12-15] MEDS: IPRATROPIUM NEB FS 0.5 MG/2.5 ML AMPUL.NEB NEB SCH ×6 (03:54→23:38)
[2022-12-15] MEDS: ALBUTEROL FS 2.5 MG/3 ML VIAL.NEB NEB SCH ×6 (03:54→23:38)
[2022-12-15 04:00] VITALS: BP 111/70
[2022-12-15 06:15] LABS: BASOPHILS % (AUTO) 0.1 % (0.0-2.0); HEMATOCRIT 26 % (33-45); HEMOGLOBIN 8.2 g/dL (11.5-14.8); LYMPHOCYTES # (AUTO) 0.1 K/uL (0.8-4.8); LYMPHOCYTES % (AUTO) 1.7 % (20.0-44.0); MEAN CORPUSCULAR HGB CONC 32 g/dl (31.0-36.0); MEAN CORPUSCULAR VOLUME 96 fL (82-100); MONOCYTES # (AUTO) 0.1 K/uL (0.1-1.30); MONOCYTES % (AUTO) 1.1 % (2.0-12.0); NEUTROPHILS # (AUTO) 6.2 K/uL (1.8-8.9); NEUTROPHILS % (AUTO) 97.1 % (43.0-81.0); PLATELET COUNT (AUTO) 187 K/uL (150-450); RED BLOOD CELL COUNT(AUTO) 2.67 MIL/uL (4.0-5.2); WHITE BLOOD COUNT (AUTO) 6.4 K/uL (4.3-11.0)
[2022-12-15 06:27] LABS: CALCIUM, SERUM 8.5 mg/dL (8.5-10.1); CREATININE 0.7 mg/dL (0.6-1.3); MAGNESIUM 1.7 mg/dL (1.8-2.4); PHOSPHORUS 2.4 mg/dL (2.5-4.9)
--- NOTE | 2022-12-15 06:46 | NUR ---
RN CLOSING NOTE PT SLEEPING IN SEMI-FOWLERS POSITION. SKIN IS PINK AND DRY. RESPIRATIONS EVEN AND UNLABORED ON BIPAP. MARGARITA MIDLINE INTACT AND RUNNING 20 MEQ KCL IN 1/2 NS AT 75 ML/HR. GTUBE SECURED AND PARKER INTACT AND DRAINING APPROPRIATELY. NO ACUTE SIGNS OF DISTRESS. BED LOCKED AND AT LOWEST LEVEL WITH 2 RAILS UP. CALL LIGHT WITHIN REACH.
[2022-12-15] MEDS ORDERED: POTASSIUM CHLORIDE 20 MEQ POWDER PACKET GT ONE ×2 (07:00→12:00)
[2022-12-15] MEDS ORDERED: POTASSIUM CHLORIDE 10 MEQ/50 ML PREMIXED IVPB FOR PERIPHERAL LINE IV ONE (07:00)
--- NOTE | 2022-12-15 07:34 | NUR ---
RN OPENING NOTE PT AWAKE IN BED, ALERT, ORIENTED X1, RESPONDS TO NAME. SKIN IS PINK AND DRY. MARGARITA MIDLINE INTACT AND RUNNING 20 MEQ KCL IN 1/2 NS AT 75 ML/HR. NO TUBE FEEDING AT THIS TIME, POSSIBLE SMALL BOWEL SERIES STUDY FOR TODAY D/T SUSPECTED SMALL BOWEL OBSTRUCTION. PARKER INTACT AND DRAINING APPROPRIATELY. DENIES PAIN AND OTHER NEEDS AT THIS TIME. BED LOCKED AND AT LOWEST LEVEL WITH 2 RAILS UP. CALL LIGHT WITHIN REACH.
[2022-12-15 08:00] VITALS: BP 148/89
[2022-12-15] MEDS ORDERED: POTASSIUM CL. PREMIX PERIPHER. 50 ML IV SCH (08:00)
[2022-12-15] MEDS: PANTOPRAZOLE 40 MG VIAL IV SCH ×2 (08:38→17:16)
[2022-12-15] MEDS: ACETAMINOPHEN 325 MG TABLET MC SCH (08:39)
[2022-12-15] MEDS: AMIODARONE HCL 200 MG TABLET GT SCH (08:40)
[2022-12-15] MEDS: ENOXAPARIN SODIUM 30 MG/0.3 ML DISP.SYRIN SQ SCH (08:41)
[2022-12-15] MEDS: LEVOTHYROXINE SODIUM 125 MCG TABLET GT SCH (08:45)
[2022-12-15] MEDS: THERAHONEY GEL 1.5 OZ TUBE TP SCH (08:47)
[2022-12-15] MEDS: PROSOURCE / PROSTAT (PYXIS) 30 ML UDC GT SCH ×2 (08:48→17:14)
[2022-12-15] MEDS ORDERED: K PHOS NEUTRAL 250 MG TABLET PO ONE (09:00)
[2022-12-15] MEDS ORDERED: MAGNESIUM OXIDE 400 MG TABLET PO ONE (10:30)
--- NOTE | 2022-12-15 11:29 | NUR ---
RN NOTE PER HOSPITALIST OKAY TO RESUME TUBE FEEDING JEVITY 1.2 AT 10ML/HR. ORDERS PLACED
[2022-12-15] MEDS ORDERED: JEVITY 1.2 CAL 1,000 ML BOTTLE GT PRN (11:30)
[2022-12-15 12:00] VITALS: BP 136/86
[2022-12-15] MEDS: PIPERACILLIN /TAZOBACTAM 3.375 G in IV D5W 100 ML IV SCH ×2 (13:21→20:32)
[2022-12-15 16:00] VITALS: BP 128/65
--- NOTE | 2022-12-15 18:56 | NUR ---
RN CLOSING NOTE PT SLEEPING IN SEMI-FOWLERS POSITION. SKIN IS PINK AND DRY. RESPIRATIONS EVEN AND UNLABORED ON BIPAP. MARGARITA MIDLINE INTACT AND RUNNING 20 MEQ KCL IN 1/2 NS AT 75 ML/HR. GTUBE SECURED AND PARKER INTACT AND DRAINING APPROPRIATELY RUNNING TUBE FEEDING AT 10MLS/HR WITH GOAL OF 50MLS/HR. NO ACUTE SIGNS OF DISTRESS. BED LOCKED AND AT LOWEST LEVEL WITH 2 RAILS UP. CALL LIGHT WITHIN REACH.
--- NOTE | 2022-12-15 19:15 | NUR ---
TELE1 RN NOTES RECEIVED LYING ON BED,A/O X1,ALERT TO NAME.BREATHING NON LABORED.PRESENT IVF WITH 20MEQ KCL AT 75ML/HR INFUSING WELL ON MARGARITA MIDLINE.GT FEEDING JEVITY 1.2 AT 10ML/HR RATE,GOAL OF 20.TOLERATED WELL.NO RESIDUAL VOLUME NOTED.HOB ELEVATED FOR ASPIRATION FOR ASPIRATION PRECAUTION.WILL REPOSITION PER PROTOCOL.WILL CONTINUE TO MONITOR STATUS.
[2022-12-15 20:00] VITALS: BP 125/76
--- NOTE | 2022-12-15 20:30 | NUR ---
TELE` RN NOTES RT DC AT BEDSIDE,PUTTING BIPAP ON PATIENT.
[2022-12-15] MEDS: QUETIAPINE FUMARATE 25 MG TABLET GT SCH (21:39)
[2022-12-16] VITALS: BP 137/82
[2022-12-16] MEDS: methylPREDNISolone SOD SUCC 40 MG/ML VIAL IV SCH ×4 (00:10→17:24)
--- NOTE | 2022-12-16 00:29 | NUR ---
TELE1 RN NOTES VERY RESTLESS,SHE DOESNT WANT BIPAP.REMOVED THIS TIME PER PATIENT REQUEST. O2 2L/NC INITIATED BY RT,,O2 SAT 96%.
--- NOTE | 2022-12-16 00:35 | NUR ---
RT Pt keeps removing BIPAP mask, Pt has removed BIPAP mask or disconnected BIPAP circuit 3 times since being placed on BIPAP at 1999. Pt refusing to stay on BIPAP. Pt placed on 2LPM O2 nasal cannula. RN at bedside.
[2022-12-16] MEDS: ALBUTEROL FS 2.5 MG/3 ML VIAL.NEB NEB SCH ×7 (02:56→23:26)
[2022-12-16] MEDS: IPRATROPIUM NEB FS 0.5 MG/2.5 ML AMPUL.NEB NEB SCH ×7 (02:56→23:25)
[2022-12-16 04:00] VITALS: BP 148/92
[2022-12-16] MEDS: PIPERACILLIN /TAZOBACTAM 3.375 G in IV D5W 100 ML IV SCH ×3 (04:30→21:08)
--- NOTE | 2022-12-16 06:29 | NUR ---
TELE1 RN CLOSING NOTES FAIRLY RESTED AT NIGHT,AWAKE,MOST OF THE NIGHT WATCHING TV PROGRAM.IVF INFUSING WELL ON MARGARITA MIDLINE.IV ABX TOLERATED WELL,HAD BM X1,CLEANED AND KEPT DRY.GT FEEDING INCREASED TO 15 ML/HR RATE.STILL NO RESIDUAL VOLUME NOTED.HOB ELEVATED.MORNING CARE RENDERED.CALL LIGHT IN REACH,NEEDS ATTENDED.
[2022-12-16 06:39] LABS: CALCIUM, SERUM 8.6 mg/dL (8.5-10.1); CREATININE 0.6 mg/dL (0.6-1.3); PHOSPHORUS 1.7 mg/dL (2.5-4.9)
--- NOTE | 2022-12-16 07:00 | NUR ---
BONE CHAR KILN TENDER OPENING NOTE PT AWAKE IN BED, ALERT, ORIENTED X1, RESPONDS TO NAME. SKIN IS WARM AND DRY TO TOUCH.ON NASAL CANNULA 2 L/MIN, NO SOB NOTED. MARGARITA MIDLINE INTACT AND RUNNING 20 MEQ KCL IN 1/2 NS AT 75 ML/HR. G TUBE FEEDING OF JEVITY 1.2 RUNNING AT 15 ML/HR AT THIS TIME TO INCREASE GRADUALLY TO REACH THE GOAL. PARKER INTACT AND DRAINING APPROPRIATELY. DENIES PAIN AND OTHER NEEDS AT THIS TIME. BED LOCKED AND AT LOWEST LEVEL WITH 2 RAILS UP. CALL LIGHT WITHIN REACH.WILL MONITOR
[2022-12-16 07:12] LABS: POTASSIUM 2.6 mmol/L (3.5-5.1)
[2022-12-16] MEDS: LEVOTHYROXINE SODIUM 125 MCG TABLET GT SCH (07:36)
--- NOTE | 2022-12-16 07:59 | NUR ---
RN NOTES: RELAYED POTASSIUM 2.6 TO MANDA LAKHANI NP WITH ORDER OF KCL 40 MEQ NOW THEN REPEAT IN 4 HOURS. ORDER CARRIED OUT
[2022-12-16 08:00] VITALS: BP 135/78
[2022-12-16] MEDS: PANTOPRAZOLE 40 MG VIAL IV SCH ×2 (08:32→17:24)
[2022-12-16] MEDS: ACETAMINOPHEN 325 MG TABLET MC SCH (08:32)
[2022-12-16] MEDS: POTASSIUM CHLORIDE 20 MEQ POWDER PACKET GT SCH ×2 (08:33→12:53)
[2022-12-16] MEDS: ENOXAPARIN SODIUM 30 MG/0.3 ML DISP.SYRIN SQ SCH (08:34)
[2022-12-16] MEDS: AMIODARONE HCL 200 MG TABLET GT SCH (08:47)
[2022-12-16] MEDS: PROSOURCE / PROSTAT (PYXIS) 30 ML UDC GT SCH ×2 (08:51→17:24)
[2022-12-16] MEDS: THERAHONEY GEL 1.5 OZ TUBE TP SCH (08:52)
[2022-12-16 12:00] VITALS: BP 151/98
[2022-12-16] MEDS ORDERED: Sodium Phosphate 15 MMOL in IV NS 0.9% 245 ML IV SCH (12:00)
[2022-12-16 16:00] VITALS: BP 147/89
[2022-12-16] MEDS ORDERED: Potassium Chloride 40 MEQ in IV NS 0.9% 1,000 ML IV SCH (16:30)
--- NOTE | 2022-12-16 19:45 | NUR ---
RN CLOSING NOTE PT SLEEPING IN SEMI-FOWLERS POSITION. SKIN IS WARM AND DRY. RESPIRATIONS EVEN AND UNLABORED ON NASAL CANNULA 3 L/MIN VIA NC. MARGARITA MIDLINE INTACT AND RUNNING 20 MEQ KCL IN 1/2 NS AT 50 ML/HR. GTUBE SECURED AND PARKER INTACT AND DRAINING APPROPRIATELY RUNNING TUBE FEEDING AT 20MLS/HR WITH GOAL OF 50MLS/HR. NO ACUTE SIGNS OF DISTRESS. BED LOCKED AND AT LOWEST LEVEL WITH 2 RAILS UP. CALL LIGHT WITHIN REACH.
--- NOTE | 2022-12-16 19:52 | NUR ---
RN OPENING NOTES RECEIVED PT IN BED, AWAKE, SITTING UPRIGHT. AOx2. ON NC 3LPM AND TOLERATING WELL. NO SOB NOTED. NO S/SX OF RESPIRATORY DISTRESS NOTED. IV ACCESS IN MARGARITA MIDLINE RUNNING 1/2 NS WITH 20 mEQ OF KCl @ 50 ML/HR. SAFETY PRECAUTIONS IN PLACE: BED IN LOWEST, LOCKED POSITION, SIDERAILS UPx2, AND BRAKES ON. TABLE AND CALL LIGHT WITHIN REACH. ALL NEEDS MET AT THIS TIME.
[2022-12-16 20:00] VITALS: BP 133/85
[2022-12-16] MEDS: QUETIAPINE FUMARATE 25 MG TABLET GT SCH (21:08)
--- NOTE | 2022-12-16 23:41 | NUR ---
Pt placed on BiPAP with ordered settings. Appears to tolerate so far, will monitor if removed. RN notified.
[2022-12-17] VITALS: BP 142/93
[2022-12-17] MEDS: methylPREDNISolone SOD SUCC 40 MG/ML VIAL IV SCH ×3 (00:22→11:26)
[2022-12-17] MEDS: IPRATROPIUM NEB FS 0.5 MG/2.5 ML AMPUL.NEB NEB SCH ×4 (03:19→15:12)
[2022-12-17] MEDS: ALBUTEROL FS 2.5 MG/3 ML VIAL.NEB NEB SCH ×4 (03:19→15:12)
[2022-12-17] MEDS: PIPERACILLIN /TAZOBACTAM 3.375 G in IV D5W 100 ML IV SCH ×2 (04:23→12:28)
--- NOTE | 2022-12-17 05:35 | NUR ---
Pt removed from bipap and placed on 2L NC. No resp distress or SOB. SPO2 97%.
[2022-12-17 06:11] LABS: CALCIUM, SERUM 8.3 mg/dL (8.5-10.1); CREATININE 0.6 mg/dL (0.6-1.3); POTASSIUM 3.6 mmol/L (3.5-5.1)
[2022-12-17 06:23] LABS: BASOPHILS % (AUTO) 0.3 % (0.0-2.0); HEMATOCRIT 29 % (33-45); HEMOGLOBIN 9.2 g/dL (11.5-14.8); LYMPHOCYTES # (AUTO) 0.1 K/uL (0.8-4.8); LYMPHOCYTES % (AUTO) 0.9 % (20.0-44.0); MEAN CORPUSCULAR HGB CONC 32 g/dl (31.0-36.0); MEAN CORPUSCULAR VOLUME 96 fL (82-100); MONOCYTES % (AUTO) 0.2 % (2.0-12.0); NEUTROPHILS # (AUTO) 12.1 K/uL (1.8-8.9); NEUTROPHILS % (AUTO) 98.6 % (43.0-81.0); PLATELET COUNT (AUTO) 189 K/uL (150-450); RED BLOOD CELL COUNT(AUTO) 3.03 MIL/uL (4.0-5.2); WHITE BLOOD COUNT (AUTO) 12.3 K/uL (4.3-11.0)
--- NOTE | 2022-12-17 06:47 | NUR ---
RN CLOSING NOTES PT IN BED, ASLEEP, AWAKENS TO VERBAL STIMULI. AOx2. ON NC 2LPM AND TOLERATING WELL. NO SOB NOTED. NO S/SX OF RESPIRATORY DISTRESS NOTED. IV ACCESS IN MARGARITA MIDLINE RUNNING 1/2 NS WITH 20 mEQ OF KCl @ 50 ML/HR. ALL ORDERS CARRIED OUT. ALL NEEDS MET. PT KEPT CLEAN AND DRY/ SAFETY PRECAUTIONS IN PLACE: BED IN LOWEST, LOCKED POSITION, SIDERAILS UPx2, AND BRAKES ON. TABLE AND CALL LIGHT WITHIN REACH. WILL ENDORSE TO ONCOMING SHIFT FOR MAYE.
--- NOTE | 2022-12-17 07:16 | NUR ---
RN OPENING NOTES RECEIVED PT IN BED, AWAKE, SITTING UPRIGHT. AOx2. ON NC 3LPM AND TOLERATING WELL.O2 SAT 97 %, NO SOB NOTED. NO S/SX OF RESPIRATORY DISTRESS NOTED. IV ACCESS IN MARGARITA MIDLINE RUNNING 1/2 NS WITH 20 mEQ OF KCl @ 50 ML/HR. L HAND S/L 20 G .PATIENT HAS FLEY CATH IN PLACE, DRAINING YELLOW CLEAR URINE SAFETY PRECAUTIONS IN PLACE: BED IN LOWEST, LOCKED POSITION, BED SIDE RAILS UPx2, CALL LIGHT WITHIN REACH . WILL CONTINUE TO MONITOR
[2022-12-17] MEDS: LEVOTHYROXINE SODIUM 125 MCG TABLET GT SCH (07:29)
[2022-12-17 08:00] VITALS: BP 141/71
[2022-12-17] MEDS: ACETAMINOPHEN 325 MG TABLET MC SCH (08:09)
[2022-12-17] MEDS: ENOXAPARIN SODIUM 30 MG/0.3 ML DISP.SYRIN SQ SCH (08:11)
[2022-12-17] MEDS: PROSOURCE / PROSTAT (PYXIS) 30 ML UDC GT SCH (08:34)
[2022-12-17] MEDS: AMIODARONE HCL 200 MG TABLET GT SCH (08:34)
[2022-12-17] MEDS: PANTOPRAZOLE 40 MG VIAL IV SCH (08:34)
[2022-12-17] MEDS: THERAHONEY GEL 1.5 OZ TUBE TP SCH (08:45)
[2022-12-17 12:00] VITALS: BP 136/79
[2022-12-17] MEDS ORDERED: PIPE3.379 IV (12:47)
[2022-12-17 16:36] VITALS: BP 128/78
--- NOTE | 2022-12-17 16:37 | NUR ---
RN NOTE DISCHARGE ORDER RECEIVED . DISCHARGE INSTRUCTIONS PROVIDED VERBALLY AND IN WRITTEN TO THE EMR AND SHABANA Steel AT THE [facility] . PATIENT DISCHARGED FROM [facility]
== END 2022-12-17 16:30 | DRG 177 ==
LOC: ER 10:44 → TELE 15:21 → TRANSITION 17:44 → ICU 12-10 14:01 → TELE-TD 12-14 18:03 → TELE1 12-15 12:05
PROVIDERS: ADMIT Internal Medicine; ATTEND Nurse Practitioner Acute Care
PROC: 5A09457 Assistance with Respiratory Ventilation, 24-96 Consecutive Hours, Continuous Positive Airway Pressure (ICD-10-PCS; principal; 2022-12-10)
PROC: 05H533Z Insertion of Infusion Device into Right Subclavian Vein, Percutaneous Approach (ICD-10-PCS; 2022-12-12)
PROC: B546ZZA Ultrasonography of Right Subclavian Vein, Guidance (ICD-10-PCS; 2022-12-12)
PROC: 05H633Z Insertion of Infusion Device into Left Subclavian Vein, Percutaneous Approach (ICD-10-PCS; 2022-12-17)
PROC: B547ZZA Ultrasonography of Left Subclavian Vein, Guidance (ICD-10-PCS; 2022-12-17)
DX: J15.6 Pneumonia due to other Gram-negative bacteria (principal); E43 Unspecified severe protein-calorie malnutrition; J96.21 Acute and chronic respiratory failure with hypoxia; G92.8 Other toxic encephalopathy; N17.0 Acute kidney failure with tubular necrosis; J96.22 Acute and chronic respiratory failure with hypercapnia; E87.1 Hypo-osmolality and hyponatremia; J98.11 Atelectasis; J44.1 Chronic obstructive pulmonary disease with (acute) exacerbation; I50.32 Chronic diastolic (congestive) heart failure; D68.69 Other thrombophilia; J44.0 Chronic obstructive pulmonary disease with (acute) lower respiratory infection; E87.3 Alkalosis; N39.0 Urinary tract infection, site not specified; K56.7 Ileus, unspecified; N13.6 Pyonephrosis; E03.9 Hypothyroidism, unspecified; E83.39 Other disorders of phosphorus metabolism; E87.5 Hyperkalemia; E88.09 Other disorders of plasma-protein metabolism, not elsewhere classified; I48.0 Paroxysmal atrial fibrillation; K21.9 Gastro-esophageal reflux disease without esophagitis; Z20.822 Contact with and (suspected) exposure to COVID-19; D63.8 Anemia in other chronic diseases classified elsewhere; Z86.718 Personal history of other venous thrombosis and embolism; Z87.440 Personal history of urinary (tract) infections; Z86.74 Personal history of sudden cardiac arrest; Z93.1 Gastrostomy status; F03.90 Unspecified dementia, unspecified severity, without behavioral disturbance, psychotic disturbance, mood disturbance, and anxiety; N18.9 Chronic kidney disease, unspecified; R13.10 Dysphagia, unspecified; Z74.09 Other reduced mobility; F09 Unspecified mental disorder due to known physiological condition; Z68.27 Body mass index [BMI] 27.0-27.9, adult; L89.156 Pressure-induced deep tissue damage of sacral region; E83.41 Hypermagnesemia; R73.9 Hyperglycemia, unspecified; B96.89 Other specified bacterial agents as the cause of diseases classified elsewhere; E86.1 Hypovolemia
CPT/HCPCS: 31720; 36415; 36600; 71045-TC; 74018; 76770-TC; 76856-TC; 80048-TC; 80076-TC; 81001; 82803-TC; 82962-TC; 83735-TC; 83880; 84100-TC; 84436-TC; 84439-TC; 84443-TC; 84484-TC; 85025-TC; 85027-TC; 87081-TC; 87086-TC; 94660; 94799-TC; A6403; A9563; C9113; C9803; G0378; J0456; J1120; J1160; J1650; J1720; J2405; J2543; J2920; J2930; J3370; J3480; J3490; J7030; J7050; J7060; J7070